=== PATIENT | male | born 1950 | race Caucasian/White ===

== ENCOUNTER 2017-09-15 06:12 | Inpatient (IN) | payer OTHER, MEDICARE ==
[2017-09-14 08:56] LABS: PT 18.6 SEC (9.4-12.5)
[~2017-09-15] VITALS: Ht 177.8 cm; Wt 81.9 kg
--- NOTE | 2017-09-15 06:31 | CT SCAN REPORT ---
EXAMINATION: CT HEAD WITHOUT CONTRAST CLINICAL INFORMATION: Arm drift. Concern for infarction. COMPARISON: None. TECHNIQUE: Contiguous axial images of the brain were obtained without IV contrast. DLP: 625 mGy-cm. FINDINGS: There are no pathologic extra-axial fluid collections. The lateral, third, fourth ventricles are nondilated and concordant with the appearance of the sulci. There is no evidence for acute intraparenchymal hemorrhage or infarct. There is neither mass nor mass effect. There is no shift of midline structures. The paranasal sinuses and mastoid air cells are clear. There are no osseous lesions. IMPRESSION: No evidence for acute intracranial injury.
[2017-09-15 06:41] LABS: ABSOLUTE BASOPHIL COUNT 0.1 /CUMM (0.0-0.2); ABSOLUTE EOSINOPHIL COUNT 0 /CUMM (0.0-0.7); ABSOLUTE GRANULOCYTE CT 17.9 /CUMM (1.4-6.5); ABSOLUTE LYMPH COUNT 2.2 /CUMM (1.2-3.4); ABSOLUTE MONOCYTE COUNT 0.9 /CUMM (0.10-0.60); BASOPHIL % 0.4 % (0.0-2.0); EOSINOPHIL % 0.2 % (0-5); GRANULOCYTE % 84.8 % (42.2-75.2); HEMATOCRIT 43.6 % (42-52); MEAN CORPUSCULAR HGB 25.1 PG (27.0-31.0); MEAN CORPUSCULAR HGB CONC 31.8 G/DL (33.0-37.0); MEAN CORPUSCULAR VOLUME 79.2 FL (80.0-94.0); MEAN PLATELET VOLUME 7.8 FL (7.4-10.4); PLATELET COUNT 177 /CUMM (130-400); RBC DISTRIBUTION WIDTH 16.5 % (11.5-14.5); WHITE BLOOD CELL COUNT 21.1 /CUMM (4.8-10.8)
--- NOTE | 2017-09-15 06:43 | ED NEURO DEFICIT/STROKE ---
History of Present Illness General Chief Complaint: Neuro Symptoms/ Deficit Stated Complaint: "BIBA PER EMS STROKE" Source: patient, family, old records, EMS Exam Limitations: no limitations Vital Signs & Intake/Output Vital Signs & Intake/Output Vital Signs Date Time Temp Pulse Resp B/P B/P Pulse O2 O2 Flow FiO2 Mean Ox Delivery Rate 09/15 900 97.2 63 18 153/90 96 Room Air 09/15 0829 89 18 137/71 98 Room Air Room Air 09/15 0712 92 18 142/81 98 Room Air Room Air 09/15 0627 98 Room Air 09/15 0621 97.0 104 18 142/93 98 Room Air Allergies Coded Allergies: No Known Allergies (09/15/17) Triage Note: PT BIBA FROM HOME C/O STROKE ALERT. PT ARRIVED AND WENT STRAIGHT TO CT SCAN. PT ARRIVED WITH [facility] BY MEDIC. PER MEDIC PT AWOKE THIS MORNING, BEGAN TO DRINK COFFEE AND PT NOTICED HE WAS SPILLING HIS COFFEE ON HIM. PT THEM LOST FINE MOTOR MOVEMENT IN LEFT HAND. PT HAD LEFT SIDED LEG DRIFT. UNABLE TO TELL SLURRED SPEECH DUE TO PTS DENTURES ARE AT HOME. CINNIANTI SCALE + PER MEDIC. PT IS SINUS ON MONITOR, LAST SEEN NORMAL AROUND [id number]. [facility]. PT TO RM 6, PLACED ON MONITOR, CHANGED INTO GOWN. DR BAI AT BEDSIDE FOR EVAL. Triage Nurses Notes Reviewed? yes Onset: Just prior to arrival Duration: minute(s):, better, constant, continues in ED Timing: recent history Severity: moderate New Weakness: LUE, LLE Altered Sensations: LUE, LLE Vision Problem? No Glaucoma? No Impaired Ability: difficult to swallow, difficult to walk Baseline: alert, oriented x 3 Associated Symptoms: confusion, numbness in legs/feet, trouble walking HPI: The patient was last seen normal at midnight. The patient awoke 1 hour prior to admission. 30 minutes prior to admission he called out to his that he couldn't drink his coffee it was spilling out of his mouth. He also complained that he could not move his left arm and leg normally with numbness and incoordination. Symptoms are now better. He denies fever chills nausea vomiting diarrhea abdominal pain chest pain shortness of breath headache dysuria rash bleeding. He has been undergoing workup for multiple complaints with a recent CT scan of his abdomen and pelvis demonstrating pulmonary nodules possible metastatic lesions to his liver and pancreas and spine. The scan also demonstrated infrarenal aortic aneurysm and aneurysmal dilatation of the thoracic aneurysm. (Zev Bai MD) Past History Travel History Traveled to [place] past 21 day No Medical History Any Pertinent Medical History? 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 No (Zev Bai MD) Review of Systems Review of Systems Constitutional: Reports: no symptoms. EENTM: Reports: no symptoms. Respiratory: Reports: no symptoms. Cardiovascular: Reports: no symptoms. GI: Reports: no symptoms. Genitourinary: Reports: no symptoms. Musculoskeletal: Reports: no symptoms. Skin: Reports: no symptoms. Neurological/Psychological: Reports: see HPI, numbness, weakness. Hematologic/Endocrine: Reports: no symptoms. Immunologic/Allergic: Reports: no symptoms. All Other Systems: Reviewed and Negative (Zev Bai MD) Physical Exam Physical Exam General Appearance: well developed/nourished, alert, awake, anxious, mild distress Head: atraumatic, normal appearance Eyes: Bilateral: normal appearance, PERRL, EOMI. Ears, Nose, Throat: normal ENT inspection, moist mucous membrane Neck: normal inspection, supple, full range of motion, trachea midline Respiratory: normal breath sounds, chest non-tender, no respiratory distress, quiet respiration, lungs clear Cardiovascular: regular rate/rhythm, normal peripheral pulses, norml femoral pulses equa Peripheral Pulses: 4+ carotid (R), 4+ carotid (L) Gastrointestinal: normal bowel sounds, soft, non-tender, no organomegaly Back: normal inspection, normal range of motion Extremities: normal range of motion, no ligament instability Psychiatric: awake, alert, oriented x 3 Cranial Nerves: normal hearing, normal speech, PERRL Coordination/Gait: normal finger to nose Motor/Sensory: no motor/sensory deficits Reflexes: 2+: bicep (R), bicep (L). Skin: intact, normal color, warm/dry Core Measures CVA/TIA Diagnosis: Yes NIH Stroke Scale NIH Stroke Scale Response Value Level of Consciousness alert 0 LOC Questions answers both correctly 0 LOC Commands obeys both correctly 0 Best Gaze normal 0 Visual Hilliard no visual loss 0 Facial Paresis normal 0 Motor Arm - Left no drift 0 Motor Arm - Right no drift 0 Motor Leg - Left no drift 0 Motor Leg - Right no drift 0 Limb Ataxia no ataxia 0 Sensory normal 0 Best Language no aphasia 0 Dysarthria normal articulation 0 Extinction and Inattention no neglect 0 Total 0 Date Last Known Well: 09/15/17 Time Last Known Well: 29 Symptom Start Date: 09/15/17 Symptom Start Time: 544 Reason tPA not ordered Medical Contraindication Swallow Evaluation Pass Swallow eval date 09/15/17 Swallow eval time 06 Sepsis Present: No Sepsis Focused Exam Completed? No (Zaid VIDAL,Zev) Progress Differential Diagnosis: drug intoxication, electrolyte imbalance, hypoglycemia, intracranial Hem., intracranial mass/tumor, stroke Plan of Care: Orders Procedure Date/time Status Nothing by Mouth 09/15 L Complete Nothing by Mouth 09/15 D Active Misc Message 09/15 1120 Active ED Holding Orders 09/15 1120 Active Admit to inpatient 09/15 1120 Active Vital Signs 09/15 1120 Active Code Status 09/15 1120 Active URINALYSIS 09/15 0926 Complete TROPONIN LEVEL 09/15 0629 Complete PROTHROMBIN TIME 09/15 0629 Complete MAGNESIUM 09/15 0629 Complete LDH (LACT ACID DEHYDROGENASE) 09/15 0629 Complete COMPREHENSIVE METABOLIC PANEL 09/15 0629 Complete CBC WITHOUT DIFFERENTIAL 09/15 0629 Complete EKG 09/15 0625 Active Laboratory Tests 09/15/17 0927: Urine Color YEL, Urine Clarity HAZY H, Urine pH 6.5, Ur Specific [place] 1.015, Urine Protein TRACE H, Urine Ketones NEG, Urine Nitrite NEG, Urine Bilirubin NEG@ICTO, Urine Urobilinogen 1.0, Ur Leukocyte Esterase NEG, Ur Microscopic SEDIMENT EXAMINED, Urine RBC RARE, Urine WBC RARE, Ur Epithelial Cells FEW, Urine Bacteria RARE H, Hyaline Casts RARE H, Granular Casts RARE H, Urine Mucus MOD H, Urine Hemoglobin NEG, Urine Glucose NEG 09/15/17 0630: Anion Gap 11, Estimated GFR > 60, BUN/Creatinine Ratio 22.9, Glucose 103 H, Calcium 8.3 L, Magnesium 2.1, Total Bilirubin 1.1, AST 157 H, ALT 75 H, Alkaline Phosphatase 594 H, Lactate Dehydrogenase 1250 H, Troponin I 0.14 *H, Total Protein 6.3, Albumin 2.9 L, Globulin 3.4, Albumin/Globulin Ratio 0.9 L, PT 18.7 H, INR 1.71 H, CBC w Diff MAN DIFF ORDERED, RBC 5.50, MCV 79.2 L, MCH 25.1 L, MCHC 31.8 L, RDW 16.5 H, MPV 7.8, Gran % 84.8 H, Lymphocytes % 10.4 L, Monocytes % 4.2, Eosinophils % 0.2, Basophils % 0.4, Absolute Granulocytes 17.9 H, Segmented Neutrophils 87 H, Band Neutrophils 3, Absolute Lymphocytes 2.2, Lymphocytes 7 L, Monocytes 2, Absolute Monocytes 0.9 H, Absolute Eosinophils 0, Basophils 1, Absolute Basophils 0.1, Platelet Estimate ADEQUATE, Polychromasia 1+, Hypochromic-Microcytic 2+, Poikilocytosis 1+, Anisocytosis 1+, Microcytic Cells 1+, Target Cells FEW, Emanuel Cells FEW Diagnostic Imaging: Viewed by Me: Radiology Read, CT Scan. Discussed w/RAD: Radiology Read, CT Scan. Radiology Impression: no acute abnormality Initial ED EKG: normal p-waves, normal sinus rhythm, IVCD Rhythm Strip: normal sinus rhythm Hand-Off Endorsed To: Jenny VIDAL,Den Pinto Endorsed Time: 704 Pending: labs, other (admission) Comments: Multiple factors of recent CT disqualify TPA use such as metastatic disease, aortic aneurysms. 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 09/15/2017 7:45:56 AM I have reevaluated Law. He states he is doing considerably better. His only complaint at this time is of tingling of the left arm. Outside of that his examination shows no cranial nerve deficits but weakness of the left arm is demonstrated by pronator drift. Left Hand grasp is normal. NIH stroke score of 2. Patient was last seen normal at midnight when he went to bed. Upon awakening at about 5:30 this morning he states he went to prepare coffee. While he was trying to drink his coffee he noticed difficulty swallowing. Prior to that he cannot confirm other symptoms have not looked in the mirror or spoken to that point. His was still asleep at the time. She awoke when he called her because of the difficulty swallowing. Neurology paged. Patient denies having chest pain or shortness of breath out of the ordinary (he smokes cigarettes and states he does get winded easily generally speaking). Etiology of the patient's increased troponin level is unclear at this point. EKG showed no acute ischemic changes or injury. 09/15/2017 8:08:27 AM patient's case discussed with Dr. Fry who feels the patient is not a TPA candidate at this time given his low NIH stroke score, improving symptoms and history of metastatic cancer and aneurysms. He has recommended a CTA for possible endovascular intervention. 09/15/2017 8:17:46 AM patient's case discussed with Dr. Cristofer Cha who feels that the troponin should be trended along with serial EKGs. He surmises the patient will need an echocardiogram during his hospitalization. However given the lack of chest pain and shortness of breath or diagnostic EKG changes, no acute intervention necessary at this time relative to the increased troponin. 09/15/2017 10:30:11 AM I have spoken with the [facility] radiology physician assistance line regarding a report on the CTA. This is pending. 09/15/2017 10:56:45 AM Per radiologist: PULMONARY EMBOLI, ACUTE INFARCT LEFT PARIETAL, QUESTION RIGHT PARIETAL ? AGE. No apparent thrombus. 09/15/2017 11:04:58 AM I have discussed this patient's case with Dr. ELLIS, including the patient's verbal CTA head and neck report and the elevated troponin alONG with my discussions with the consultants. I have kept the patient nothing by mouth given the history of dysphagia. I've also been told that he did not take his typical daily aspirin dose today because he has a liver biopsy pending. I have held on administering aspirin given this consideration. (Jenny VIDAL,Den Pinto) Departure Departure Disposition: STILL A PATIENT Condition: Stable Clinical Impression Primary Impression: TIA (transient ischemic attack) Referrals: Raymond Richardson MD (PCP/Family) Departure Forms: Customer Survey General Discharge Information (Zev Bai MD) Admission Note Spoke With: Emmie Ellis MD Documentation of Exam: Documentation of any treatments & extenuating circumstances including Concerns Regarding Discharge (functional status, medication knowledge or non-compliance, living conditions, etc.) that warrant an admission rather than observation: Patient has a confirmed acute stroke in the left parietal region. I feel he requires hospitalization for neurology consultation, follow-up MRI scan and optimization of medical management to prevent future strokes. In addition patient should also have potential reversible causes of stroke investigated included carotid artery disease and cardioembolic phenomenon. In addition patient should have PT OT evaluation given his left upper extremity weakness and history of dysphagia. This patient has a very complicated past medical history including metastatic cancer and tobacco smoking. I feel he will require a multiple day hospitalization. Patient might also require short-term rehabilitation. (Jenny VIDAL,Den Pinto) Critical Care Note Critical Care Note Critical Care Time: 30-74 min (40) (Zaid VIDAL,Zev)
[2017-09-15 06:46] LABS: PT 18.7 SEC (9.4-12.5)
--- NOTE | 2017-09-15 07:17 | RADIOLOGY REPORT ---
EXAMINATION: XR PORTABLE CHEST CLINICAL INFORMATION: Left-sided weakness. COMPARISON: CT thorax dated 09/06/2017. TECHNIQUE: Portable frontal view of the chest was obtained. FINDINGS: The heart, great vessels, pulmonary vasculature mediastinum are normal. There is stable mild scar/atelectasis at the lateral left base. No infiltrate, effusion or pneumothorax is seen. There is no acute osseous abnormality. IMPRESSION: There is stable mild lateral left base scar/subsegmental atelectasis. No new focal infiltrate, effusion or pneumothorax is seen.
--- NOTE | 2017-09-15 11:05 | CT SCAN REPORT ---
EXAMINATION: CT ANGIOGRAM NECK WITH CONTRAST CT ANGIOGRAM BRAIN WITH CONTRAST CLINICAL INFORMATION: Left upper extremity weakness and dysphasia. COMPARISON: Head CT performed earlier the same day. TECHNIQUE: Test bolus sequences followed by intravenous administration 95 mL of Optiray 320. Helical imaging was performed in the axial plane from the thoracic inlet to the skull vertex. Delayed postcontrast imaging of the head was also performed. The data was processed at the tomography technologist workstation for generation of MIP sequences. Angled MIPs and volume rendered reformatted images were also generated at an offline 3D workstation. Stenoses are assessed in accordance with NASCET criteria unless otherwise indicated. FINDINGS: BRAIN: There is a possible small acute to subacute infarct involving the left parietal lobe on image 42 of series 4 and a smaller infarct of indeterminate age within the right parietal lobe. No definite additional acute or subacute infarcts are identified. There is no intracranial hemorrhage, hydrocephalus, extra-axial surface collection, midline shift, or other herniation pattern. The basilar cisterns are preserved. No significant soft tissue abnormality. No acute osseous abnormality. The paranasal sinuses and the mastoid air cells are well-aerated. CERVICAL SOFT TISSUES AND LUNG APICES: There is a partially imaged pulmonary embolus within an anterior segmental pulmonary arterial branch of the right upper lobe on image 39 of series 2. Smaller pulmonary embolus within a right apical segmental pulmonary arterial branch. No significant soft tissue findings within the neck. Imaged upper lungs are clear. Cervical spondylosis. At T4 there is a probable vertebral body hemangioma with mild superior endplate height loss that is unchanged. NECK CTA: There is a classic 3 vessel configuration of the aortic arch. Proximal arch vessels are non-stenotic. The vertebral arteries are codominant. No significant ostial stenosis is visualized on either side. Both vertebral arteries are widely patent throughout their extracranial cervical course. Atherosclerotic disease of the carotid bifurcations bilaterally resulting in less than 50% stenoses by NASCET criteria. BRAIN CTA: Atherosclerotic disease throughout the carotid siphons bilaterally with a moderate stenosis of the ascending left cavernous ICA segment and no additional intracranial internal carotid artery stenoses. No focal flow-limiting stenosis, discrete proximal large artery occlusion, or saccular intradural aneurysm is identified. Timing of the contrast bolus allows assessment of the major dural venous sinuses, which all opacify normally. IMPRESSION: - There is a possible small acute to subacute infarct involving the left parietal lobe on image 42 of series 4 and a smaller infarct of indeterminate age within the right parietal lobe. No definite additional acute or subacute infarcts are identified. No significant mass effect and no evidence of hemorrhagic transformation. - There is a partially imaged pulmonary embolus within an anterior segmental pulmonary arterial branch of the right upper lobe on image 39 of series 2. Smaller pulmonary embolus within a right apical segmental pulmonary arterial branch. A CTA of the chest would be helpful in assessing for the true degree of pulmonary embolus burden. - Atherosclerotic disease throughout the carotid siphons bilaterally with a moderate stenosis of the ascending left cavernous ICA segment. No acute arterial occlusions within the head or neck. No significant arterial stenoses within the neck. Findings and recommendations were discussed with Dr. Alvarado at 10:56 AM and 09/15/2017.
[2017-09-15] MEDS ORDERED: ULTRAM50 M1 PO (11:53)
[2017-09-15] MEDS ORDERED: VITAMIN D250000 UNIT PO (11:54)
--- NOTE | 2017-09-15 12:50 | Cons- Neurology ---
General Information and HPI Consulting Request Date of Consult: 09/15/17 Requested By: Dr. Alvardao Reason for Consult: Left side weakness, stroke alert Source of Information: patient, family, old records Exam Limitations: no limitations History of Present Illness: 67-year-old man first noted difficulty this morning after being up and about when drinking coffee which dribbled left side of his mouth. There was left lower facial weakness noted by his and some slurring of speech first noted when he conversed with her, weakness and paresthesias in the arm as well. NIH score was low, actual time of onset not known, possibly during the night, therefore TPA was withheld. CT discloses stroke but CTA revealed no large artery occlusions. The patient is improving, at this time he reports only paresthesias in the left arm. Allergies/Medications Allergies: Coded Allergies: No Known Allergies (09/15/17) Home Med List: Ergocalciferol (Vitamin D2) (Vitamin D2) 50,000 UNIT CAPSULE 1 CAP PO QTUES SUPPLEMENT (Reported) Tramadol HCl (Ultram) 50 MG TABLET 1 TAB PO TIDPRN PAIN (Reported) Review of Systems Review of Systems: ROS: A complete medical systems review was obtained. No pertinent complaints were found. 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 Ambulation: independent IADLs Independent: finances. Exam & Diagnostic Data Vital Signs and I&O Vital Signs Date Time Temp Pulse Resp B/P B/P Pulse O2 O2 Flow FiO2 Mean Ox Delivery Rate 09/15 1133 88 18 139/88 97 Room Air Room Air 09/15 0901 97.2 63 18 153/90 96 Room Air 09/15 0829 89 18 137/71 98 Room Air Room Air 09/15 0712 92 18 142/81 98 Room Air Room Air 09/15 0627 98 Room Air 09/15 0621 97.0 104 18 142/93 98 Room Air Intake & Output 09/15 1600 09/15 0800 09/15 0000 Intake Total Output Total Balance Patient 184 lb Weight Weight Reported by Patient Measurement Method Physical Exam: On exam the patient appeared generally well and in no distress. No carotid bruits and no cardiac murmur. No peripheral edema Mental status: Alert, attentive, fully oriented, no language errors, recall and general fund of knowledge seem intact Funduscopic unremarkable Visual szymanski full , Eye movements full without nystagmus, pupils midsize equal round and reactive to light. Facial movement normal bilaterally Facial sensation normal bilaterally Hearing intact bilaterally Uvula elevates midline Tongue protrusion is midline Shoulder shrug symmetric Motor power and tone normal in all 4 extremities Sensation intact to primary modes Tendon reflexes normal and symmetric without pathologic signs Coordination no ataxia Gait [testing deferred] Last 48 Hours of Lab Results: Laboratory Tests 09/15 09/15 0927 0630 Chemistry Sodium (137 - 145 mmol/L) 127 L Potassium (3.5 - 5.1 mmol/L) 4.5 Chloride (98 - 107 mmol/L) 90 L Carbon Dioxide (22 - 30 mmol/L) 26 Anion Gap (5 - 16) 11 BUN (9 - 20 mg/dL) 16 Creatinine (0.7 - 1.2 mg/dL) 0.7 Estimated GFR (>60 ml/min) > 60 BUN/Creatinine Ratio (7 - 25 %) 22.9 Glucose (65 - 99 mg/dL) 103 H Calcium (8.4 - 10.2 mg/dL) 8.3 L Magnesium (1.6 - 2.3 mg/dL) 2.1 Total Bilirubin (0.2 - 1.3 mg/dL) 1.1 AST (17 - 59 U/L) 157 H ALT (21 - 72 U/L) 75 H Alkaline Phosphatase (< 127 U/L) 594 H Lactate Dehydrogenase (313 - 618 U/L) 1250 H Troponin I (<0.11 ng/ml) 0.14 *H Total Protein (6.3 - 8.2 g/dL) 6.3 Albumin (3.5 - 5.0 g/dL) 2.9 L Globulin (1.9 - 4.2 gm/dL) 3.4 Albumin/Globulin Ratio (1.1 - 2.2 %) 0.9 L Coagulation PT (9.4 - 12.5 SEC) 18.7 H INR (0.90 - 1.17) 1.71 H Hematology CBC w Diff MAN DIFF ORDERED WBC (4.8 - 10.8 /CUMM) 21.1 H RBC (4.70 - 6.10 /CUMM) 5.50 Hgb (14.0 - 18.0 G/DL) 13.8 L Hct (42 - 52 %) 43.6 MCV (80.0 - 94.0 FL) 79.2 L MCH (27.0 - 31.0 PG) 25.1 L MCHC (33.0 - 37.0 G/DL) 31.8 L RDW (11.5 - 14.5 %) 16.5 H Plt Count (130 - 400 /CUMM) 177 MPV (7.4 - 10.4 FL) 7.8 Gran % (42.2 - 75.2 %) 84.8 H Lymphocytes % (20.5 - 51.1 %) 10.4 L Monocytes % (1.7 - 9.3 %) 4.2 Eosinophils % (0 - 5 %) 0.2 Basophils % (0.0 - 2.0 %) 0.4 Absolute Granulocytes (1.4 - 6.5 /CUMM) 17.9 H Segmented Neutrophils (42.2 - 75.2 %) 87 H Band Neutrophils (0.0 - 5.0 %) 3 Absolute Lymphocytes (1.2 - 3.4 /CUMM) 2.2 Lymphocytes (20.5 - 51.1 %) 7 L Monocytes (1.7 - 9.3 %) 2 Absolute Monocytes (0.10 - 0.60 /CUMM) 0.9 H Absolute Eosinophils (0.0 - 0.7 /CUMM) 0 Basophils (0.0 - 2.0 %) 1 Absolute Basophils (0.0 - 0.2 /CUMM) 0.1 Platelet Estimate (ADEQUATE) ADEQUATE Polychromasia 1+ Hypochromic-Microcytic 2+ Poikilocytosis 1+ Anisocytosis 1+ Microcytic Cells 1+ Target Cells FEW [place] Cells FEW Urines Urine Color (YEL,AMB,STR) YEL Urine Clarity (CLEAR) HAZY H Urine pH (5.0 - 8.0) 6.5 Ur Specific [place] (1.001 - 1.035) 1.015 Urine Protein (NEG,<30 MG/DL) TRACE H Urine Ketones (NEG) NEG Urine Nitrite (NEG) NEG Urine Bilirubin (NEG) NEG@ICTO Urine Urobilinogen (0.1 - 1.0 EU/dl) 1.0 Ur Leukocyte Esterase (NEG) NEG Ur Microscopic SEDIMENT EXAMINED Urine RBC (0 - 5 /HPF) RARE Urine WBC (0 - 2 /HPF) RARE Ur Epithelial Cells (NONE,FEW) FEW Urine Bacteria (NEG/NONE) RARE H Hyaline Casts (0/LPF) RARE H Granular Casts (NONE /LPF) RARE H Urine Mucus (FEW,NONE) MOD H Urine Hemoglobin (NEG) NEG Urine Glucose (N MG/DL) NEG Imaging/Other Studies: CT head without contrast: There are no pathologic extra-axial fluid collections. The lateral, third, fourth ventricles are nondilated and concordant with the appearance of the sulci. There is no evidence for acute intraparenchymal hemorrhage or infarct. There is neither mass nor mass effect. There is no shift of midline structures. The paranasal sinuses and mastoid air cells are clear. There are no osseous lesions. IMPRESSION: No evidence for acute intracranial injury. CTA head and neck: CERVICAL SOFT TISSUES AND LUNG APICES: There is a partially imaged pulmonary embolus within an anterior segmental pulmonary arterial branch of the right upper lobe on image 39 of series 2. Smaller pulmonary embolus within a right apical segmental pulmonary arterial branch. No significant soft tissue findings within the neck. Imaged upper lungs are clear. Cervical spondylosis. At T4 there is a probable vertebral body hemangioma with mild superior endplate height loss that is unchanged. NECK CTA: There is a classic 3 vessel configuration of the aortic arch. Proximal arch vessels are non-stenotic. The vertebral arteries are codominant. No significant ostial stenosis is visualized on either side. Both vertebral arteries are widely patent throughout their extracranial cervical course. Atherosclerotic disease of the carotid bifurcations bilaterally resulting in less than 50% stenoses by NASCET criteria. BRAIN CTA: Atherosclerotic disease throughout the carotid siphons bilaterally with a moderate stenosis of the ascending left cavernous ICA segment and no additional intracranial internal carotid artery stenoses. No focal flow-limiting stenosis, discrete proximal large artery occlusion, or saccular intradural aneurysm is identified. Timing of the contrast bolus allows assessment of the major dural venous sinuses, which all opacify normally. IMPRESSION: - There is a possible small acute to subacute infarct involving the left parietal lobe on image 42 of series 4 and a smaller infarct of indeterminate age within the right parietal lobe. No definite additional acute or subacute infarcts are identified. No significant mass effect and no evidence of hemorrhagic transformation. - There is a partially imaged pulmonary embolus within an anterior segmental pulmonary arterial branch of the right upper lobe on image 39 of series 2. Smaller pulmonary embolus within a right apical segmental pulmonary arterial branch. A CTA of the chest would be helpful in assessing for the true degree of pulmonary embolus burden. - Atherosclerotic disease throughout the carotid siphons bilaterally with a moderate stenosis of the ascending left cavernous ICA segment. No acute arterial occlusions within the head or neck. No significant arterial stenoses within the neck. 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 The scan also demonstrated infrarenal aortic aneurysm and aneurysmal dilatation of the thoracic aneurysm. Recommendations: At this point in time the greatest risk to the patient is a recurrent stroke, first week the period of highest risk. Would recommend postponing the biopsy unless this can be done on antiplatelet treatment. Aspirin 81 MG EC daily. Atorvastatin 40 MG daily as well Telemetry Echocardiogram For allowing me to participate in this patient's care Consult Acknowledgment - Thank you for your consult request.
--- NOTE | 2017-09-15 13:12 | History & Physical ---
Javier Shah MD 09/15/17 1312: General Information and HPI Source of Information: patient, family, old records Exam Limitations: no limitations History of Present Illness: 67-year-old man with past medical history of pulmonary/hepatic/pancreatic lesions of unknown etiology, AAA, and GERD brought in by ambulance for slurred speeach and facial droop. Patient reportedly went to bed around midnight last night in his normal state of health. He awoke around 5:30 and went downstairs to make coffee. When drinking the coffee shortly after he notices that it kept "dribbling" out of his mouth. He then saw him and noticed that his speech was slurred and he has a facial droop. Patient reports left hand weakness / clumsyness during this time and states that he couldnt grab the television report. He left leg also felt weak. For evaluation of these symptoms EMS was contaced and patient was brought to the [place] ED. Presently patient states that his symptoms have almost entirely resolved. He admits his left hand is still somewhat clumsy. He otherwise feels well and has no complaints. He reports that tomorrow he was going to see a vascular surgeon for his "blue" right 5th toe. He also stopped taking aspiring as of this morning in anticipation of a liver biopsy on Saturday to determine the source of these lesions. Social History He smokes 2-3 ppd since age 22. He denies use or alcohol or recreational drugs. 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 He is indenpendent in all ADLs/IADLs. Review of Systems Otherwise he denies any headache, fever, chills, blurred/double vision, lightheadednes, dizziness, chest pain, palpitations, heartburn, shortness of breath, cough, nausea, vomiting, diarrhea, constipation, or urinary complaints. Allergies/Medications Allergies: Coded Allergies: No Known Allergies (09/15/17) Home Med list Aspirin (Ecotrin*) 81 MG TABLET.DR 1 TAB PO DAILY HEART (Reported) Ergocalciferol (Vitamin D2) (Vitamin D2) 50,000 UNIT CAPSULE 1 CAP PO QTUES SUPPLEMENT (Reported) Omeprazole 20 MG CAPSULE.DR 1 CAP PO DAILY GERD (Reported) Tramadol HCl (Ultram) 50 MG TABLET 1 TAB PO TIDPRN PAIN (Reported) Past History Travel History Traveled to [place] past 21 day No Medical History Neurological: NONE EENT: NONE Cardiovascular: AORTIC ANEURYSM Respiratory: NONE Gastrointestinal: GERD Hepatic: NONE Renal: NONE Musculoskeletal: NONE Psychiatric: NONE Endocrine: NONE Cancer(s): 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 Home Who Do You Live With? spouse Services at Home: None Primary Language: [place] Smoking Status: Current Everyday Smoker ETOH Use: denies use Functional Ability ADLs Independent: dressing, eating, toileting, bathing. Ambulation: independent IADLs Independent: finances. Review of Systems Review of Systems Constitutional: Reports: see HPI. Exam & Diagnostic Data Last 24 Hrs of Vital Signs/I&O Vital Signs Date Time Temp Pulse Resp B/P B/P Pulse O2 O2 Flow FiO2 Mean Ox Delivery Rate 09/15 1331 98 22 165/95 99 Room Air 09/15 1133 88 18 139/88 97 Room Air Room Air 09/15 0901 97.2 63 18 153/90 96 Room Air 09/15 0829 89 18 137/71 98 Room Air Room Air 09/15 0712 92 18 142/81 98 Room Air Room Air 09/15 0627 98 Room Air 09/15 0621 97.0 104 18 142/93 98 Room Air Intake & Output 09/15 1600 09/15 0800 09/15 0000 Intake Total Output Total Balance Patient 83.461 kg Weight Weight Reported by Patient Measurement Method Physical Exam General Appearance Alert, Oriented X3, Cooperative, No Acute Distress Skin No Rashes, No Breakdown, No Significant Lesion Skin Temp/Moisture Exam: Warm/Dry Sepsis Skin Exam (color): Normal for Ethnicity HEENT Atraumatic, PERRLA, EOMI, Mucous Membr. moist/pink Neck Supple, No JVD, +2 Carotid Pulse wo Bruit Cardiovascular Regular Rate, Normal S1, Normal S2, No Murmurs, Gallops, Rubs Lungs Clear to Auscultation, Normal Air Movement Abdomen Normal Bowel Sounds, Soft, No Tenderness, No Hepatospenomegaly, No Masses Neurological Normal Gait, Normal Speech, Strength at 5/5 X4 Ext, Normal Tone, Sensation Intact, Cranial Nerves 3-12 NL, Reflexes 2+ Extremities No Clubbing, No Edema, Normal Pulses, No Tenderness/Swelling, Cyanotic right 5th toe Vascular Normal Pulses, Pulses Symmetrical Last 24 Hrs of Labs/Cy: Laboratory Tests 09/15/17 1315: Troponin I Pending 09/15/17926: Urine Osmolality Pending 09/15/17926: Urine Color YEL, Urine Clarity HAZY H, Urine pH 6.5, Ur Specific [place] 1.015, Urine Protein TRACE H, Urine Ketones NEG, Urine Nitrite NEG, Urine Bilirubin NEG@ICTO, Urine Urobilinogen 1.0, Ur Leukocyte Esterase NEG, Ur Microscopic SEDIMENT EXAMINED, Urine RBC RARE, Urine WBC RARE, Ur Epithelial Cells FEW, Urine Bacteria RARE H, Hyaline Casts RARE H, Granular Casts RARE H, Urine Mucus MOD H, Urine Hemoglobin NEG, Urine Glucose NEG 09/15/17 0630: Anion Gap 11, Estimated GFR > 60, BUN/Creatinine Ratio 22.9, Glucose 103 H, Hemoglobin A1c Pending, Serum Osmolality Pending, Calcium 8.3 L, Magnesium 2.1, Total Bilirubin 1.1, AST 157 H, ALT 75 H, Alkaline Phosphatase 594 H, Lactate Dehydrogenase 1250 H, Troponin I 0.14 *H, Total Protein 6.3, Albumin 2.9 L, Globulin 3.4, Albumin/Globulin Ratio 0.9 L, Triglycerides Pending, Cholesterol Pending, LDL Cholesterol, Calc Pending, HDL Cholesterol Pending, Cholesterol/HDL Ratio Pending, PT 18.7 H, INR 1.71 H, CBC w Diff MAN DIFF ORDERED, RBC 5.50, MCV 79.2 L, MCH 25.1 L, MCHC 31.8 L, RDW 16.5 H, MPV 7.8, Gran % 84.8 H, Lymphocytes % 10.4 L, Monocytes % 4.2, Eosinophils % 0.2, Basophils % 0.4, Absolute Granulocytes 17.9 H, Segmented Neutrophils 87 H, Band Neutrophils 3, Absolute Lymphocytes 2.2, Lymphocytes 7 L, Monocytes 2, Absolute Monocytes 0.9 H, Absolute Eosinophils 0, Basophils 1, Absolute Basophils 0.1, Platelet Estimate ADEQUATE, Polychromasia 1+, Hypochromic-Microcytic 2+, Poikilocytosis 1 +, Anisocytosis 1+, Microcytic Cells 1+, Target Cells FEW, [place] Cells FEW Assessment/Plan Assessment: 67 year old man with probable metastatic disease seen for evaluation of slurred speech and facial droop found to have an acute left parietal CVA. CT head without IV contrast was negative for any acute intracranial pathology. CTA head/neck demonstrated an acute/subacute left parietal infarct and an age- indeterminate right parietal infarct. The scan also demonstrated what appears to be an acute pulmonary embolism however clinically other than an elevated well score for probable underlying cancer he does not appear to be in any respiratory distress, is saturating well on room air, and is not tachycardic. Patient may require a CTA of the chest with PE protocol for further evaluation of this finding. Patient may require a contrast enhanced MRI of the brain to assess for focality of his CVA and for probable metastatic disease. Patient is to be seen by vascular surgery as an inpatient for evaluation of his cyanotic right fifth toe; he was previously scheduled to follow-up with vascular as an outpatient for this tomorrow. Patient held his aspirin this morning in anticipation for a liver biopsy on Saturday by interventional radiology which may have to be deferred. Problem List -Acute-Subsacute left parietal CVA -Age indeterminant right parietal CVA -Questionable pulmonary embolus -Moderate stenosis of ascending left cavernous ICA -Diffuse solid organ lesions, probable metastatic disease -Leukocytosis -Hyponatremia -Transaminitis -Elevated troponin -Elevated INR -Elevated LDH -History of AAA -GERD Plan -Admit to telemetry floor -Telemetry monitoring -Neurochecks -Restart Aspirin 81 mg PO daily -Start Atorvastatin 40 mg PO Daily -Start metoprolol tartrate 12.5 mg p.o. twice daily -Continue home meds: Vitamin D, Omeprazole, Tramadol -Neurology consult for CVA -Cardiology consult for elevated troponins -Vascuar surgery consult for cyanotic toe -PT/OT evaluation -Contact IR regarding liver biopsy schedule for Saturday -Follow daily hepatic function, INR, BMP -Trend troponin / EKG until peak or three negative sets -Check Serum / Urine Osmolality -Checks HbA1c and lipid panel -Echocardiogram -Bilateral lower extremity venous Doppler -X-ray right foot -Consider MRI with brodie to assess for extent of stroke / possible metastatic disease -Consider CTA to evaluate for pulmonary embolism if symptomatic -Pain control with acetaminophen / tramadol -Heart healthy diet with 1200cc fluid restriction -DVT PPx with SC heparin / ALPS -DNR, intubation okay As Ranked By This Provider Problem List: 1. Acute CVA (cerebrovascular accident) 2. Elevated troponin 3. Metastatic disease 4. Hyponatremia Core Measures/Misc (9/17) Acute Coronary Syndrome ACS Diagnosis: No Congestive Heart Failure Congestive Heart Failure Diagnosis No Cerebrovascular Accident CVA/TIA Diagnosis: Yes NIH Stroke Scale: Total 0 Date Last Known Well: 09/15/17 Time Last Known Well: 0030 Symptom Start Date: 09/15/17 Symptom Start Time: 05 Reason tPA not ordered Medical Contraindication Swallow Evaluation Pass Current/Past Hx AFib/AFlutter No No Antithrombotic d/t Medical Contraindication No Anticoagulant d/t Medical Contraindication VTE (View Protocol) VTE Risk Factors Age>40 No Mechanical VTE Prophylaxis d/t N/A MechProphylax Ordered No VTE Pharm Prophylaxis d/t NA PharmProphylax ordered Comment: Possible VTE? Sepsis (View protocol) Sepsis Present: No Emmie Ellis MD 09/15/17 1437: Attending MD Review Statement Attending Statement Attending MD Statement: examined this patient, discuss w/resident/PA/RN RADIATION, agreed w/resident/PA/RN RADIATION, discussed with family, reviewed EMR data (avail), discussed with nursing, amended to note Attending Assessment/Plan: Patient seen and examined. Lying comfortably in bed not in acute distress. present at the bedside. History and physical is as documented by the medical supply technician above. Currently denies any pain. Denies any nausea vomiting. Denies any chest pain or palpitations. Denies any cough swelling or pain. Denies any pain in the right foot. Discussed the bedside swallow evaluation and is eating lunch with no issues. General appearance: Well-developed and not in any acute distress. HEENT: Anicteric, no pallor, pupils equal and reactive. Neck: Supple with no jugular venous distention. Heart: S1-S2 regular with no audible murmur. Lungs: Adequate and symmetric air entry bilaterally with no added sounds. Abdomen: Distended, firm, nontender. Normal bowel sounds. Extremities: Cyanotic toes right foot more pronounced not cool to touch. Distal pulses Problems: 1. Bilateral parietal stroke. Left-sided stroke is acute to subacute, right is indeterminate. 2. Moderate stenosis of the ascending left cavernous internal carotid artery segment. 3. Concern for multiple pulmonary embolism noted on CT of the head and neck. 4. Elevated troponin; likely secondary to above. Rule out coronary artery disease. 5. Liver lesions concerning for metastatic disease. 6. Mass versus pseudo-lesion in the tail of the pancreas. 7. Cyanotic right foot. 8. Leukocytosis 9. Hyponatremia Plan: -Admit to inpatient medical service. -Telemetry monitoring. Serial troponins until levels are trending down, transthoracic echocardiogram to evaluate for possible PFO/ASD stroke. cardiology consultation appreciated. Begin low-dose beta-angie therapy with metoprolol 12.5 mg orally twice daily. -Neuro watch every 4 hours 24 hours. -Antiplatelet therapy with aspirin. Lipid-lowering therapy with statin. -Patient was scheduled for liver biopsy later on this week. This will have to be deferred as patient will need to be maintained on antiplatelet therapy with aspirin for now. -Patient will require a dedicated CT angiogram of the chest to confirm diagnosis of pulmonary embolism. Given his dilute today this procedure can be delayed on the 24 hours. Fortunately at present he is asymptomatic from a respiratory standpoint. He is not requiring oxygen supplementation. He is not tachycardic. -Obtain venous Dopplers of lower extremities to rule out DVT. -Obtain arterial Dopplers to evaluate for peripheral arterial disease given his cyanotic right foot. Vascular surgery consultation. -In order to avoid hemorrhagic conversion of his acutely diagnosed stroke, hold off full dose anticoagulation until cleared by the neurology service. -Patient's diagnosis as well as plan of care were discussed in detail with him and his at the bedside.
[2017-09-15] MEDS ORDERED: ASPIRIN EC81 M1 PO (13:13)
[2017-09-15] MEDS ORDERED: OMEPRAZOLE20 M2 PO (13:14)
[2017-09-15 14:00] VITALS: BP 150/90
[2017-09-15 14:13] VITALS: BP 150/90
--- NOTE | 2017-09-15 14:17 | RADIOLOGY REPORT ---
EXAMINATION: XR FOOT, RIGHT CLINICAL INFORMATION: Cyanotic right fifth toe; question fracture. COMPARISON: None TECHNIQUE: AP and lateral views of the right foot. FINDINGS: Bony alignment and mineralization are normal. No fracture or dislocation is seen. There is no right ankle joint effusion. Boehler's angle is normal. There is no calcaneal spur. No soft tissue gas or foreign body is seen. IMPRESSION: Normal right foot.
--- NOTE | 2017-09-15 14:37 | Admission Certification ---
Admission Certification Certification Statement - As attending physician, I certify that at the time of - admission, based on clinical presentation, severity of - symptoms, need for further diagnostic testing and - therapeutic interventions, and risk of adverse outcomes - without in-hospital treatment, in my clinical assessment, - this patient requires an acute hospital stay for a minimum - of two nights or longer. I have also considered psychsocial - factors such as support system, advanced age, financial - issues, cognitive issues, and failed out-patient treatments, - past re-admission history, safety of patient, and lack of - compliance as applicable. Specific rationale supporting this admission is: Patient requires hospitalization for management of his acute stroke and elevated troponins.
--- NOTE | 2017-09-15 14:42 | Cons- Cardiology ---
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 He presents to our hospital with acute left facial weakness as well as arm paresthesias and speech slurring. The patient noted facial weakness with drooling from the left after awakening this a.m. and drinking coffee. There was concurrent noted left arm paresthesias and speech slurring. He was brought to the emergency room, wherein a CT demonstrated a small left parietal lobe acute/subacute infarct. Of note, he was as well noted to have a right upper lobe pulmonary embolism on that scan. The patient was evaluated by neurology and initiated on antiplatelet therapy. From a cardiac standpoint, the patient is otherwise asymptomatic. He denies having symptoms of chest pains, palpitations nor dyspnea. Of note, he does recall being aware of a heart murmur that he was advised of many years ago. He has had no cardiac imaging in the past. An initial EKG demonstrated no acute changes, and the patient was in sinus rhythm. Allergies/Medications Allergies: Coded Allergies: No Known Allergies (09/15/17) Home Med List: Aspirin (Ecotrin*) 81 MG TABLET.DR 1 TAB PO DAILY HEART (Reported) Ergocalciferol (Vitamin D2) (Vitamin D2) 50,000 UNIT CAPSULE 1 CAP PO QTUES SUPPLEMENT (Reported) Omeprazole 20 MG CAPSULE.DR 1 CAP PO DAILY GERD (Reported) Tramadol HCl (Ultram) 50 MG TABLET 1 TAB PO TIDPRN PAIN (Reported) Current Medications: Current Medications Sig/Lola Start time Last Medication Dose Route Stop Time Status Admin Acetaminophen 650 MG Q6P PRN 09/15 1330 AC PO Aspirin Buffered 81 MG DAILY 09/15 1314 AC PO Atorvastatin Calcium 40 MG 1700 09/15 1700 AC PO Ergocalciferol 50,000 IU QTUES 09/17 0900 AC PO Heparin Sodium 5,000 UNIT Q8 09/15 1400 AC (Porcine) SC Omeprazole 20 MG DAILY AC 09/15 1321 AC PO Omeprazole 20 MG DAILY 09/15 1314 CAN PO Tramadol HCl 50 MG TIDPRN PRN 09/15 1315 AC PO Review of Systems Review of Systems: The review of systems is negative for chest pains, palpitations nor lightheadedness. The remainder of the 14 point review of systems is noncontributory with the exception of above. 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 Home Who Do You Live With? spouse Services at Home: None Primary Language: Bermudian Smoking Status: Current Everyday Smoker ETOH Use: denies use Functional Ability ADLs Independent: dressing, eating, toileting, bathing. Ambulation: independent IADLs Independent: finances. Exam & Diagnostic Data Vital Signs and I&O Vital Signs Date Time Temp Pulse Resp B/P B/P Pulse O2 O2 Flow FiO2 Mean Ox Delivery Rate 09/15 1413 98.3 103 20 150/90 97 Room Air 09/15 1331 98 22 165/95 99 Room Air 09/15 1133 88 18 139/88 97 Room Air Room Air 09/15 0901 97.2 63 18 153/90 96 Room Air 09/15 0829 89 18 137/71 98 Room Air Room Air 09/15 0712 92 18 142/81 98 Room Air Room Air 09/15 0627 98 Room Air 09/15 0621 97.0 104 18 142/93 98 Room Air Intake & Output 09/15 1600 09/15 0800 09/15 0000 09/14 1600 09/14 0800 09/14 0000 Intake Total Output Total Balance Patient 191 lb 184 lb Weight Weight Bed scale Reported by Patient Measurement Method Physical Exam: General: Nontoxic, no apparent distress. HEENT: Sclera and conjunctiva within normal limits, without xanthelasmas. Neck: Carotids 2+ without bruits. Respiratory: Clear to auscultation, air movement is good, without accessory respiratory muscle use. Heart: Regular rate and rhythm, without murmurs, without JVD. Abdomen: Soft, nontender, no masses, normoactive bowel sounds. Extremities: Without clubbing, cyanosis, without edema. Neuro: Nonfocal exam, strength, 5 out of 5 Skin: Within normal limits without lesions. Psych: Mood and affect: Normal Labs/Cy Results: Laboratory Tests 09/15 09/15 09/15 1315 0931 0904 Chemistry Troponin I (<0.11 ng/ml) 0.18 *H Urines Urine Color (YEL,AMB,STR) YEL Urine Clarity (CLEAR) HAZY H Urine pH (5.0 - 8.0) 6.5 Ur Specific [place] (1.001 - 1.035) 1.015 Urine Protein (NEG,<30 MG/DL) TRACE H Urine Ketones (NEG) NEG Urine Nitrite (NEG) NEG Urine Bilirubin (NEG) NEG@ICTO Urine Urobilinogen (0.1 - 1.0 EU/dl) 1.0 Ur Leukocyte Esterase (NEG) NEG Ur Microscopic SEDIMENT EXAMINED Urine RBC (0 - 5 /HPF) RARE Urine WBC (0 - 2 /HPF) RARE Ur Epithelial Cells (NONE,FEW) FEW Urine Bacteria (NEG/NONE) RARE H Hyaline Casts (0/LPF) RARE H Granular Casts (NONE /LPF) RARE H Urine Mucus (FEW,NONE) MOD H Urine Hemoglobin (NEG) NEG Urine Osmolality (300 - 1000 MOSM/KG) 839 Urine Glucose (N MG/DL) NEG 09/15 0630 Chemistry Sodium (137 - 145 mmol/L) 127 L Potassium (3.5 - 5.1 mmol/L) 4.5 Chloride (98 - 107 mmol/L) 90 L Carbon Dioxide (22 - 30 mmol/L) 26 Anion Gap (5 - 16) 11 BUN (9 - 20 mg/dL) 16 Creatinine (0.7 - 1.2 mg/dL) 0.7 Estimated GFR (>60 ml/min) > 60 BUN/Creatinine Ratio (7 - 25 %) 22.9 Glucose (65 - 99 mg/dL) 103 H Hemoglobin A1c (4.2 - 5.8 %) Pending Serum Osmolality (285 - 295 MOSM/KG) 275 L Calcium (8.4 - 10.2 mg/dL) 8.3 L Magnesium (1.6 - 2.3 mg/dL) 2.1 Total Bilirubin (0.2 - 1.3 mg/dL) 1.1 AST (17 - 59 U/L) 157 H ALT (21 - 72 U/L) 75 H Alkaline Phosphatase (< 127 U/L) 594 H Lactate Dehydrogenase (313 - 618 U/L) 1250 H Troponin I (<0.11 ng/ml) 0.14 *H Total Protein (6.3 - 8.2 g/dL) 6.3 Albumin (3.5 - 5.0 g/dL) 2.9 L Globulin (1.9 - 4.2 gm/dL) 3.4 Albumin/Globulin Ratio (1.1 - 2.2 %) 0.9 L Triglycerides (<150 mg/dL) Pending Cholesterol (< 200 MG/DL) Pending LDL Cholesterol, Calc (65 - 129 mg/dL) Pending HDL Cholesterol (40 - 60 mg/dL) Pending Cholesterol/HDL Ratio (0.00 - 4.88 %) Pending Coagulation PT (9.4 - 12.5 SEC) 18.7 H INR (0.90 - 1.17) 1.71 H Hematology CBC w Diff MAN DIFF ORDERED WBC (4.8 - 10.8 /CUMM) 21.1 H RBC (4.70 - 6.10 /CUMM) 5.50 Hgb (14.0 - 18.0 G/DL) 13.8 L Hct (42 - 52 %) 43.6 MCV (80.0 - 94.0 FL) 79.2 L MCH (27.0 - 31.0 PG) 25.1 L MCHC (33.0 - 37.0 G/DL) 31.8 L RDW (11.5 - 14.5 %) 16.5 H Plt Count (130 - 400 /CUMM) 177 MPV (7.4 - 10.4 FL) 7.8 Gran % (42.2 - 75.2 %) 84.8 H Lymphocytes % (20.5 - 51.1 %) 10.4 L Monocytes % (1.7 - 9.3 %) 4.2 Eosinophils % (0 - 5 %) 0.2 Basophils % (0.0 - 2.0 %) 0.4 Absolute Granulocytes (1.4 - 6.5 /CUMM) 17.9 H Segmented Neutrophils (42.2 - 75.2 %) 87 H Band Neutrophils (0.0 - 5.0 %) 3 Absolute Lymphocytes (1.2 - 3.4 /CUMM) 2.2 Lymphocytes (20.5 - 51.1 %) 7 L Monocytes (1.7 - 9.3 %) 2 Absolute Monocytes (0.10 - 0.60 /CUMM) 0.9 H Absolute Eosinophils (0.0 - 0.7 /CUMM) 0 Basophils (0.0 - 2.0 %) 1 Absolute Basophils (0.0 - 0.2 /CUMM) 0.1 Platelet Estimate (ADEQUATE) ADEQUATE Polychromasia 1+ Hypochromic-Microcytic 2+ Poikilocytosis 1+ Anisocytosis 1+ Microcytic Cells 1+ Target Cells FEW [place] Cells FEW Assessment/Plan Assessment/Plan 67-year-old gentleman with a past medical history of gastroesophageal reflux disease as well as recently suspected lung CA with 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 He presents to our hospital with acute left facial weakness as well as arm paresthesias and speech slurring. He is found to have an acute/subacute CVA in the left parietal region; however, has as well noted to have a right upper lobe pulmonary embolism and mild troponin isoenzyme elevation. Acute CVA: The patient presents with an acute CVA in the context of a pulmonary embolism. A possible scenario would be a DVT with both pulmonic artery embolization as well as a paradoxical embolism through a possible PFO/ASD resulting in a CVA. Input by neurology as to the earliest time to initiate anticoagulation therapy ( full anticoagulation with heparin) will need to be obtained. Acute pulmonary embolism: As above, given the acute pulmonary embolism seen on CAT scan, the etiology of his mild troponin isoenzyme elevation is likely secondary to the same. We will obtain an echocardiogram, and given the systemic embolization (CVA) noted, his echocardiogram should be performed with concurrent administration of saline contrast to evaluate for a PFO/ASD. Troponin isoenzyme elevation: The patient has a minimal troponin isoenzyme elevation in the setting of an cute pulmonary embolism. The most likely etiology for the elevation is from his pulmonary embolism; however, given the concurrent CVA and risk of paradoxical embolism, the possibility of a paradoxical embolism into a coronary artery with resultant occlusion as well exists. He remains on aspirin, and we will initiate beta-angie therapy. Given the presence of atherosclerosis seen on scan, statins will as well be maintained. Discussion with neurology regarding the timing of full anticoagulation will be undertaken. Possible lung CA with liver/pancreatic metastasis: The patient requires a biopsy for further clarification. Given the timing of his acute CVA as well as pulmonary embolism, the timing of the biopsy will need to be discussed regarding safety of performing the same while on coagulation versus holding anticoagulation. Thank you for allowing us to participate in the care of your patient. Please do not hesitate to contact us further with any questions. Sincerely, Howard Zapata MD [facility] Consult Acknowledgment - Thank you for your consult request.
--- NOTE | 2017-09-15 16:12 | ULTRASOUND REPORT ---
EXAMINATION: US TRIPLEX OF LOWER EXTREMITIES, BILATERAL CLINICAL INFORMATION: Cyanosis of right fifth toe. Leg swelling. Pulmonary embolus detected on CT exam of neck. COMPARISON: None TECHNIQUE: Color-flow triplex imaging with spectral analysis and compression Doppler were performed on the lower extremities. FINDINGS: The common femoral vein is compressible and exhibits a normal phasic waveform, bilaterally; this suggests that the iliac veins are widely patent above. Within each proximal thigh, the visualized profunda femoris vein is patent. The visualized greater saphenous veins and saphenofemoral junctions are normal. Superficial femoral vein is patent in the proximal, mid and distal aspect of each thigh. Popliteal vein appears normal to the level of the trifurcation, bilaterally, and the visualized calf veins are unremarkable. No evidence of Stewart's cyst. IMPRESSION: No evidence of deep vein thrombosis in either lower extremity.
--- NOTE | 2017-09-15 16:24 | ULTRASOUND REPORT ---
EXAMINATION: US DUPLEX LOWER EXTREMITY ARTERY/GRAFT LIMITED, RIGHT CLINICAL INFORMATION: 67-year-old male with cyanosis of right fifth toe. COMPARISON: CT images of the abdomen from 09/06/2017 TECHNIQUE: Grayscale and pulsed color Doppler images with spectral waveform analysis of major vessels of right lower extremity was performed using a linear 8 MHz transducer. FINDINGS: Common femoral artery - peak systolic velocity of 79 cm/sec; high amplitude, monophasic waveform; atherosclerotic calcification of the vessel without occlusion or focal high-grade stenosis. Proximal profunda femoris artery - peak systolic velocity of 72 cm/sec; biphasic waveform. SFA, proximal - peak systolic velocity of 26 cm/sec; monophasic waveform. Irregular atherosclerotic plaque within the proximal vessel produces moderate stenosis. SFA, mid - peak systolic velocity of 54 cm/sec; high amplitude, monophasic flow pattern. SFA, distal - peak systolic velocity of 43 cm/sec; monophasic flow. Popliteal - peak systolic velocity of 40 cm/sec, proximally and 52 cm/sec, distally; flow is monophasic (i.e. no flow reversal below baseline); irregular atherosclerotic plaque of the vessel without focal high-grade stenosis or occlusion. Leg vessels - the visualized anterior and posterior tibial arteries, which exhibit relatively weak monophasic flow, exhibit peak systolic velocities of 29 cm/sec and 39 cm/sec, respectively. Dorsalis pedis artery, which has monophasic flow, has peak systolic velocity of 40 cm/sec. IMPRESSION: There is extensive atherosclerotic disease of peripheral vessels. The abnormal waveform of the common femoral artery indicates presence of significant disease in more proximal (i.e., iliac) vessels. Atherosclerotic plaque produces moderate, irregular stenosis in the proximal SFA. The visualized femoral, popliteal and leg vessels are patent but have abnormal waveforms due to the hemodynamically significant disease. For a more complete anatomic assessment of the peripheral vessels, CT angiography-runoff examination could be performed. To further evaluate the severity of peripheral vascular disease, NOLBERTO measurements and pulse volume recordings may be obtained at a dedicated vascular lab.
--- NOTE | 2017-09-15 17:36 | Cons- Vascular Surgery ---
Eladia Eid 09/15/17 1713: General Information and HPI Consulting Request Date of Consult: 09/15/17 Requested By: Emmie Ellis MD Reason for Consult: Cyanotic 5th toe, right foot Source of Information: patient, old records Exam Limitations: no limitations History of Present Illness: Mr. Ulloa is a 67-year-old man with past medical history of pulmonary/hepatic /pancreatic lesions of unknown etiology, AAA, and GERD brought in by ambulance for slurred speeach and facial droop. He reports that he stopped taking aspirin as of this morning in anticipation of a liver biopsy on Saturday to determine the source of these lesions. Patient reportedly went to bed around midnight last night in his normal state of health. He awoke around 5:30 and went downstairs to make coffee. When drinking the coffee shortly after he notices that it kept "dribbling" out of his mouth. He then saw him and noticed that his speech was slurred and he has a facial droop. Patient reports left hand weakness / clumsyness during this time and states that he couldnt grab the television report. He left leg also felt weak. For evaluation of these symptoms EMS was contaced and patient was brought to the [place] ED. CT imaging obtained of his head shows a possible small acute to subacute infarct involving the left parietal lobe as well as a smaller infarct of indeterminate age within the right parietal lobe. Presently patient states that his symptoms have almost entirely resolved. He admits his left hand is still somewhat clumsy. He otherwise feels well and has no complaints. He reports that tomorrow he was going to see a vascular surgeon for his "blue" right 5th toe. This toe is reported by the patient to have been cyanotic for over a month now. On this visit, he has had imaging done of his lower extremities to include doppler and duplex studies. Doppler studies negative for vte. Duplex studies suggestive of atherosclerotic disease and stenosis in sfa and iliacs. Vascular surgery has been called for further management. 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 Home Who Do You Live With? spouse Services at Home: None Primary Language: Hungarian Smoking Status: Current Everyday Smoker ETOH Use: denies use Functional Ability ADLs Independent: dressing, eating, toileting, bathing. Ambulation: independent IADLs Independent: finances. Review of Systems Review of Systems: See H&P Exam & Diagnostic Data Vital Signs and I&O Vital Signs Date Time Temp Pulse Resp B/P B/P Pulse O2 O2 Flow FiO2 Mean Ox Delivery Rate 09/15 1413 98.3 103 20 150/90 97 Room Air 09/15 1400 98.3 103 20 150/90 97 09/15 1331 98 22 165/95 99 Room Air 09/15 1133 88 18 139/88 97 Room Air Room Air 09/15 0901 97.2 63 18 153/90 96 Room Air 09/15 0829 89 18 137/71 98 Room Air Room Air 09/15 0712 92 18 142/81 98 Room Air Room Air 09/15 0627 98 Room Air 09/15 0621 97.0 104 18 142/93 98 Room Air Intake & Output 09/15 1600 09/15 0800 09/15 0000 09/14 1600 09/14 0800 09/14 0000 Intake Total Output Total Balance Patient 191 lb 184 lb Weight Weight Bed scale Reported by Patient Measurement Method Physical Exam: General: Alert and oriented x3, no acute distress Cardiac: RRR Lungs: Non-labored respiratory effort Abdomen: Soft, non-tender Extremiteis: Moves all extremities. Neuro intact, residual weakness to left hand appreciated. Bilateral lower extremity skin warm and well perfused with the exception of right 5th toe, cyanotic to plantar aspect. DP and PT pulses are palpable bilaterally. Femoral pulses palpable bilaterally. Assessment/Plan Assessment/Plan This is a 67 year old male who presents today with complaints of left sided facial droop and residual hand weakness. It has been determined that the patient has multiple lesions on liver, kidney, pancreas and quite possibly lung. He is currently being worked up and was scheduled to undergo a liver biopsy later this week. Since admission to [facility] this visit, he has undergone CT imaging of head and neck with angiography. A CVA has not been ruled out. He is awaiting a CTA of chest for PE studies. Vascular surgery was called to evaluate his right 5th toe cyanosis. This case was discussed with Dr. Abernathy of vascular surgery. In order to minimize dye load, it is recommended that this patient undergo an angiogram intra-operatively as opposed to a CTA with runoff. This can be scheduled for later this week as long as the patient remains stable from a vascular standpoint. If the patient is discharged prior to this study being done on this hospital visit, he is to follow up this week with Dr. Abernathy as an outpatient and Dr. Abernathy will follow him closely. Consult Acknowledgment - Thank you for your consult request. Michela VIDAL,Jaycob 09/17/17 8470: General Information and HPI Consulting Request Requested By: Dee Dee VIDAL,[facility] Allergies/Medications Allergies: Coded Allergies: No Known Allergies (09/15/17) Home Med List: Aspirin (Ecotrin*) 81 MG TABLET.DR 1 TAB PO DAILY HEART (Reported) Ergocalciferol (Vitamin D2) (Vitamin D2) 50,000 UNIT CAPSULE 1 CAP PO QTUES SUPPLEMENT (Reported) Omeprazole 20 MG CAPSULE.DR 1 CAP PO DAILY GERD (Reported) Tramadol HCl (Ultram) 50 MG TABLET 1 TAB PO TIDPRN PAIN (Reported) Current Medications: Current Medications Sig/Lola Start time Last Medication Dose Route Stop Time Status Admin Acetaminophen 650 MG Q6P PRN 09/15 1330 AC PO Atorvastatin Calcium 40 MG 1700 09/15 1700 AC 09/17 PO 1627 Ergocalciferol 50,000 IU QTUES 09/17 0900 AC 09/17 PO 0936 Heparin Sodium 25,000 UNIT Q24H 09/16 1345 AC 09/17 (Porcine) IV 1239 Sodium Chloride 500 ML Loperamide HCl 2 MG Q6P PRN 09/17 0800 AC 09/17 PO 1250 Metoprolol Tartrate 12.5 MG BID 09/15 2100 AC 09/17 PO 0936 Omeprazole 20 MG DAILY AC 09/15 1321 AC 09/17 PO 0709 Tramadol HCl 50 MG TIDPRN PRN 09/15 1315 AC PO Assessment/Plan Consult Acknowledgment - Thank you for your consult request. Attending MD Review Statement Attending Statement Attending Assessment/Plan: Agree with above , will try to book for angiogram. High risk , multiple medical probems, will schedule for angigram. If discharged prior to that, will schedule as oupatient.
[2017-09-15 22:25] VITALS: BP 110/70
[2017-09-16 06:39] VITALS: BP 114/68
--- NOTE | 2017-09-16 07:09 | PN- Housestaff ---
Jimbo VIDAL,[facility] 09/16/17 0709: Subjective Follow-up For: TIA Tele-Events Since Last Visit: NSR with HR 82-87. No overnight events. Subjective: Patient was seen and examined at bedside. He reports doing okay. Offers no complaints. No further episodes of slurred speech, weakness or any other associated symptoms. Review of Systems Constitutional: Reports: no symptoms. Objective Last 24 Hrs of Vital Signs/I&O Vital Signs Date Time Temp Pulse Resp B/P B/P Pulse O2 O2 Flow FiO2 Mean Ox Delivery Rate 09/16 1400 98.3 73 20 112/60 95 09/16 0917 81 114/68 09/16 0639 98.9 81 22 114/68 93 09/15 2225 99.3 99 22 110/70 94 09/15 2111 99 110/70 Intake & Output 09/16 1600 09/16 0800 09/16 0000 Intake Total 240 300 Output Total Balance 240 300 Intake, Oral 240 300 Patient 181 lb Weight Physical Exam General Appearance: Alert, Oriented X3, Cooperative, No Acute Distress Skin: No Rashes, No Breakdown Skin Temp/Moisture Exam: Warm/Dry Sepsis Skin Exam (color): Normal for Ethnicity HEENT: Atraumatic Cardiovascular: Normal S1, Normal S2, No Murmurs Lungs: Clear to Auscultation, Normal Air Movement Abdomen: Soft, No Tenderness Neurological: Normal Speech, Strength at 5/5 X4 Ext, Normal Tone, Sensation Intact, Cranial Nerves 3-12 NL Extremities: No Edema, Cyanotic right 5th toe Assessment/Plan Assessment: 67 year old man with probable metastatic disease seen for evaluation of slurred speech and facial droop found to have an small acute left parietal CVA. Assessment: 1. 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 Multiple Bilateral Pulmonary Embolism 4. Metastatic disease 5. Elevated Troponins 6. Hyponatremia 7. Elevated INR 8. Elevated LFTs Plan: * Continue monitoring on telemetry floor. * His troponins are still rising slowly. Will trend until they peak. * He does not appear to have any focal neurological deficit at this time but will continue neurochecks * He will need an echo with bubble study - pending * His CTA chest today showed bilateral multiple pulmonary embolism * Discontinue aspirin. Begin AC with IV heparin. This has been discussed with Neurology. * Bilateral lower extremity venous Doppler was negative * He will have his liver biopsy on Saturday. The heparin will need to be turned off 4 hours prior to the procedure. * Continue Atorvastatin 40 mg PO Daily * Continue metoprolol tartrate 12.5 mg p.o. 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 * Fluid restriction for hyponatremia * Arterial U/S of right lower extremity showed extensive atherosclerotic disease of peripheral vessels. He will require an intraoperative angiogram later in the week per vascular surgery. * Trend LFTs. * Will monitor INR * HbA1c is 5.5. Lipid panel wnl except for elevated TGs * Continue home meds: Vitamin D, Omeprazole, Tramadol * Diet: Heart healthy diet with 1200cc fluid restriction * DVT Prophylaxis: IV Heparin * Code: DNR. Intubation is okay Problem List: 1. Hyponatremia Pain Ratin Pain Location: none Pain Goal: Remain pain free Pain Plan: none Tomorrow's Labs & Rationales: CBC, BEP Chip Funez 09/16/17 1450: Attending MD Review Statement Attending Statement Attending MD Statement: examined this patient, discuss w/resident/PA/FAREBOX REPAIRER, agreed w/resident/PA/FAREBOX REPAIRER, discussed with family, reviewed EMR data (avail), discussed with nursing, discussed with case mgmt, reviewed images, amended to note Attending Assessment/Plan: 67 o/m with pmh of hepatic metastases was scheduled to come for liver biospy and old stroke developed stroke like symptoms, not tpa candidate admitted to inpatient telemetry monitoring for acute CVA with acute multiple bilateral pulmonary embolism and uncontrolled hypertension with elevation of cardiac enzymes type 2 VT. Neurology and Cardiology consulted. Start anticoagulation as cleared by neurology for possible benefit of PE treamtnet and prevention in future as compared to very small risk of hemorrhagic conversion from small stroke. Frequent neurochecks Planned IR guided biopsy on Saturday for liver mets so will start on iv heparin for now for easy titration before the procedure. ASA/statin for stroke prevention as per neurology. Hyponatremia likely SIADH fluid restriction and Na monitoring. Uncontrolled hypertension Elevated cardiac enzymes type 2 VT, no chest pain and non specific ekg changes. Vascular surgery consult appreciated for peripheral arterial disease and abnomral waveforms, w/u as elective intra-operative angiogram. Discuss with family risks/benefits of medical management. total time spent>37 min in this complex scenario.
[2017-09-16 08:17] LABS: PT 17.9 SEC (9.4-12.5)
[2017-09-16 08:28] LABS: ABSOLUTE BASOPHIL COUNT 0 /CUMM (0.0-0.2); ABSOLUTE EOSINOPHIL COUNT 0 /CUMM (0.0-0.7); ABSOLUTE GRANULOCYTE CT 15.9 /CUMM (1.4-6.5); ABSOLUTE MONOCYTE COUNT 1.1 /CUMM (0.10-0.60); BASOPHIL % 0 % (0.0-2.0); EOSINOPHIL % 0.1 % (0-5); HEMATOCRIT 40.4 % (42-52); MEAN CORPUSCULAR HGB 25.7 PG (27.0-31.0); MEAN CORPUSCULAR HGB CONC 32.1 G/DL (33.0-37.0); MEAN CORPUSCULAR VOLUME 79.9 FL (80.0-94.0); PLATELET COUNT 169 /CUMM (130-400); RBC DISTRIBUTION WIDTH 17.2 % (11.5-14.5); RED BLOOD CELL CT 5.06 /CUMM (4.70-6.10)
[2017-09-16 09:28] LABS: GRANULOCYTE % 83.5 % (42.2-75.2)
--- NOTE | 2017-09-16 12:18 | CT SCAN REPORT ---
EXAMINATION: CT ANGIOGRAM OF THE CHEST WITH CONTRAST (CT PULMONARY ANGIOGRAM FOR PE) CLINICAL INFORMATION: Pulmonary embolism observed on CT angiography imaging of the head-neck. COMPARISON: Chest CT of 09/06/2017. CT angiography images from 09/15/2017. TECHNIQUE: Prior to contrast administration, noncontrast localization images were obtained. Subsequently, multidetector volumetric imaging was performed from the thoracic inlet to below the diaphragms following the administration of 95 mL Optiray 320 intravenous contrast. No contrast reaction reported. Sagittal, coronal, and MIP oblique sagittal reformatted images were obtained on the CT workstation, uploaded to PACS, and reviewed. DLP: Total exam dose-length product 417 mGy-cm FINDINGS: QUALITY OF STUDY/CONTRAST BOLUS: Satisfactory. PULMONARY ARTERIES: Again noted are emboli within segmental and subsegmental branches to the anterior segment and apex of the right upper lobe. Also, embolus is present within a subsegmental branch of the posterior right upper lobe. Emboli are present within segmental and subsegmental branches of the lateral right middle lobe and within a subsegmental branch of the medial middle lobe. There are emboli within subsegmental branches of the superior segment of the right lower lobe, segmental and subsegmental branches of the posterior, medial and lateral right lower lobe. There are likely small emboli within a subsegmental branch of the apicoposterior segment of the left upper lobe and within a subsegmental branch of the superior segment left lower lobe. Also, there are scattered emboli within left lower lobe arteries. THORACIC AORTA: Mild atherosclerotic calcification of the thoracic aorta. The ascending aorta measures up to 4 cm transverse and 4 cm AP diameter. No aortic dissection. LUNGS AND PLEURA: Trachea and central bronchi are widely patent and normal in caliber. Multiple calcified granulomas of the right upper and right lower lobes. Mild centrilobular and paraseptal emphysema. A small, linear opacity in the right middle lobe is of no appreciable significance (sagittal reformatted image 80 of 92). There are very small, 0.2 cm noncalcified peripheral nodules of the left upper lobe (images 89 and 107, series 2). No convincing metastasis within either lung. The areas of peripheral consolidation and groundglass attenuation in the lateral left lower lobe and posterior right lower lobe likely represent combination of atelectasis and pulmonary infarction/hemorrhage. No pleural effusion. CARDIOVASCULAR: The heart size is normal. There is mild atherosclerotic calcification of left anterior descending coronary artery. No pericardial effusion. No inward bowing of the interventricular septum. No evidence of heart strain. MEDIASTINUM: The esophagus has normal wall thickness. The visualized portion of the thyroid gland is unremarkable. No mediastinal mass. LYMPHATICS: No pathologic sized axillary, hilar or mediastinal lymph nodes. UPPER ABDOMEN: Enlarged, heterogeneous liver. The multiple hepatic metastases are more clearly depicted on the abdominal CT images of 09/06/2017. There is heterogeneous tissue thickening of the pancreatic tail, partially included in the [id number]. No reflux of contrast into the inferior vena cava. Small amount of ascitic fluid is present within the upper abdomen. OSSEOUS STRUCTURES: Hemangiomas of T4 and T10 vertebral bodies. No aggressive osseous lesions within the thorax. IMPRESSION: 1. Multiple bilateral pulmonary emboli without evidence of right heart strain. 2. Peripheral areas of consolidation and hazy opacity in the posterior right lower lobe and lateral left lower lobe likely represent a combination of atelectasis and infarction. 3. Multiple hepatic metastases -- possibly originating from a neoplasm of the pancreatic tail. 4. Small amount of ascitic fluid is present in the visualized upper abdomen.
--- NOTE | 2017-09-16 12:53 | PN- Cardiology ---
Subjective Subjective: Patient doing well today. Feels neurologic deficits are improving. Denies shortness of breath or chest pain. Objective Vital Signs and I&Os Vital Signs Date Time Temp Pulse Resp B/P B/P Pulse O2 O2 Flow FiO2 Mean Ox Delivery Rate 09/16 0917 81 114/68 09/16 0639 98.9 81 22 114/68 93 09/15 2225 99.3 99 22 110/70 94 09/15 2111 99 110/70 09/15 1413 98.3 103 20 150/90 97 Room Air 09/15 1400 98.3 103 20 150/90 97 09/15 1331 98 22 165/95 99 Room Air Intake & Output 09/16 1600 09/16 0800 09/16 0000 09/15 1600 09/15 0800 09/15 0000 Intake Total 240 300 Output Total Balance 240 300 Intake, Oral 240 300 Patient 181 lb 191 lb 184 lb Weight Weight Bed scale Reported by Patient Measurement Method Physical Exam: General: no apparent distress. Alert. Eyes: No obvious scleral icterus. HEENT: No jugular venous distention or abnormal jugular venous pulsations. Cardiovascular: Normal intensity S1/S2. Regular Respiratory: Lungs clear to auscultation bilaterally. Abdomen: Soft, nontender with no guarding or rebound tenderness. Musculoskeletal: No clubbing or cyanosis noted Skin: warm Neurologic: Normal speech Current Medications: Current Medications Sig/Lola Start time Last Medication Dose Route Stop Time Status Admin Acetaminophen 650 MG Q6P PRN 09/15 1330 AC PO Aspirin Buffered 81 MG DAILY 09/15 1314 AC 09/16 PO 0917 Atorvastatin Calcium 40 MG 1700 09/15 1700 AC 09/15 PO 1643 Ergocalciferol 50,000 IU QTUES 09/17 0900 AC PO Heparin Sodium 5,000 UNIT Q8 09/15 1400 AC 09/16 (Porcine) SC 0548 Metoprolol Tartrate 12.5 MG BID 09/15 2100 AC 09/16 PO 0917 Omeprazole 20 MG DAILY AC 09/15 1321 AC 09/16 PO 0547 Omeprazole 20 MG DAILY 09/15 1314 CAN PO Tramadol HCl 50 MG TIDPRN PRN 09/15 1315 AC PO Results Last 48 Hrs of Labs/Mics: Laboratory Tests 09/16/17 0618: Anion Gap 9, Estimated GFR > 60, BUN/Creatinine Ratio 24.3, Magnesium 2.0, Total Bilirubin 1.2, Direct Bilirubin 0.7 H, AST 318 H, ALT 117 H, Alkaline Phosphatase 546 H, Troponin I 0.45 *H, Total Protein 6.0 L, Albumin 2.7 L, PT 17.9 H, INR 1.63 H, CBC w Diff NO MAN DIFF REQ, RBC 5.06, MCV 79.9 L, MCH 25.7 L, MCHC 32.1 L, RDW 17.2 H, MPV 10.0, Gran % 83.5 H, Lymphocytes % 10.5 L, Monocytes % 5.9, Eosinophils % 0.1, Basophils % 0, Absolute Granulocytes 15.9 H, Absolute Lymphocytes 2.0, Absolute Monocytes 1.1 H, Absolute Eosinophils 0, Absolute Basophils 0 09/16/17 0012: Troponin I 0.34 *H 09/15/17 1800: Troponin I 0.20 *H 09/15/17 1315: Troponin I 0.18 *H 09/15/17 0927: Urine Osmolality 839 09/15/17 0927: Urine Color YEL, Urine Clarity HAZY H, Urine pH 6.5, Ur Specific [place] 1.015, Urine Protein TRACE H, Urine Ketones NEG, Urine Nitrite NEG, Urine Bilirubin NEG@ICTO, Urine Urobilinogen 1.0, Ur Leukocyte Esterase NEG, Ur Microscopic SEDIMENT EXAMINED, Urine RBC RARE, Urine WBC RARE, Ur Epithelial Cells FEW, Urine Bacteria RARE H, Hyaline Casts RARE H, Granular Casts RARE H, Urine Mucus MOD H, Urine Hemoglobin NEG, Urine Glucose NEG 09/15/17 0630: Anion Gap 11, Estimated GFR > 60, BUN/Creatinine Ratio 22.9, Glucose 103 H, Hemoglobin A1c 5.5, Serum Osmolality 275 L, Calcium 8.3 L, Magnesium 2.1, Total Bilirubin 1.1, AST 157 H, ALT 75 H, Alkaline Phosphatase 594 H, Lactate Dehydrogenase 1250 H, Troponin I 0.14 *H, Total Protein 6.3, Albumin 2.9 L, Globulin 3.4, Albumin/Globulin Ratio 0.9 L, Triglycerides 182 H, Cholesterol 69, LDL Cholesterol, Calc 17 L, HDL Cholesterol 16 L, Cholesterol/HDL Ratio 4, PT 18.7 H, INR 1.71 H, CBC w Diff MAN DIFF ORDERED, RBC 5.50, MCV 79.2 L, MCH 25.1 L, MCHC 31.8 L, RDW 16.5 H, MPV 7.8, Gran % 84.8 H, Lymphocytes % 10.4 L, Monocytes % 4.2, Eosinophils % 0.2, Basophils % 0.4, Absolute Granulocytes 17.9 H, Segmented Neutrophils 87 H, Band Neutrophils 3, Absolute Lymphocytes 2.2, Lymphocytes 7 L, Monocytes 2, Absolute Monocytes 0.9 H, Absolute Eosinophils 0, Basophils 1, Absolute Basophils 0.1, Platelet Estimate ADEQUATE, Polychromasia 1+, Hypochromic-Microcytic 2+, Poikilocytosis 1+, Anisocytosis 1+, Microcytic Cells 1+, Target Cells FEW, [place] Cells FEW Recent Imaging Studies: Telemetry tracings were personally reviewed and shows sinus rhythm CTA: 1. Multiple bilateral pulmonary emboli without evidence of right heart strain. 2. Peripheral areas of consolidation and hazy opacity in the posterior right lower lobe and lateral left lower lobe likely represent a combination of atelectasis and infarction. 3. Multiple hepatic metastases -- possibly originating from a neoplasm of the pancreatic tail. 4. Small amount of ascitic fluid is present in the visualized upper abdomen. Assessment/Plan Assessment/Plan 1. Acute CVA 2. Acute pulmonary embolism with mild troponin elevation 3. Likely metastatic malignancy 4. Peripheral vascular disease 5. Hyponatremia CT angiogram as above shows multiple bilateral pulmonary emboli. Initiate anticoagulation when cleared. Echocardiogram is pending (this should be done with agitated saline "Bubble study" as already recommended by Dr. Zapata yesterday given the concern for intracardiac shunt in the setting of CVA and pulmonary embolus). He is currently receiving aspirin and statin therapy. Continue on telemetry to monitor for any evidence of atrial fibrillation. Sergei De Oliveira MD [facility] Continue telemetry? Yes
[2017-09-16 14:00] VITALS: BP 112/60
[2017-09-16 22:24] VITALS: BP 118/78
[2017-09-16 23:08] LABS: PTT 86 SEC (25-37)
--- NOTE | 2017-09-17 07:04 | PN- Housestaff ---
Jimbo VIDAL,[facility] 09/17/17 0704: Subjective Follow-up For: TIA Malignancy Tele-Events Since Last Visit: NSR with HR 75-81. No overnight events. Subjective: States he had 6-8 episodes of diarrhea overnight which makes him feel dehydrated. He wishes to go home soon. He was explained the rationale for continued need for hospitalization. Review of Systems Constitutional: Reports: no symptoms. Objective Last 24 Hrs of Vital Signs/I&O Vital Signs Date Time Temp Pulse Resp B/P B/P Pulse O2 O2 Flow FiO2 Mean Ox Delivery Rate 09/16 2224 98.9 79 18 118/78 93 Room Air 09/16 202 76 120/76 09/16 1400 98.3 73 20 112/60 95 09/16 0917 81 114/68 Intake & Output 09/17 0800 09/17 0000 09/16 1600 Intake Total 321 284 550 Output Total Balance 321 284 550 Intake, IV 104 50 Intake, Oral 321 180 500 Number 7 4 Bowel Movements Patient 174 lb Weight Physical Exam General Appearance: Alert, Oriented X3, Cooperative, No Acute Distress Skin: No Rashes, No Breakdown Skin Temp/Moisture Exam: Warm/Dry Sepsis Skin Exam (color): Normal for Ethnicity HEENT: Atraumatic Cardiovascular: Normal S1, Normal S2, No Murmurs Lungs: Clear to Auscultation, Normal Air Movement Abdomen: Soft, No Tenderness Neurological: Normal Speech, Strength at 5/5 X4 Ext, Normal Tone, Sensation Intact, Cranial Nerves 3-12 NL, slight pronator drift on the left Extremities: No Edema Last 24 Hrs of Lab/Cy Results Last 24 Hrs of Labs/Mics: Laboratory Tests 09/17/17 0617: Total Bilirubin Pending, Direct Bilirubin Pending, AST Pending, ALT Pending, Alkaline Phosphatase Pending, Total Protein Pending, Albumin Pending, PT Pending , INR Pending 09/16/17 2238: APTT 86 H 09/16/17 1955: Troponin I 0.40 *H 09/16/17 1250: Troponin I 0.49 *H Microbiology 09/17 0201 STOOL: Clostridium difficile Toxin A & B - RECD Assessment/Plan Assessment: 67 year old man with probable metastatic disease seen for evaluation of slurred speech and facial droop found to have an small acute left parietal CVA. Assessment: 1. 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 Multiple Bilateral Pulmonary Embolism 4. Metastatic disease 5. Elevated Troponins 6. Hyponatremia 7. Elevated INR 8. Elevated LFTs Plan: * Continue monitoring on telemetry floor. * His troponins peaked overnight. Likely Type II NE * He does not appear to have any focal neurological deficit at this time but will continue neurochecks * He will need an echo with bubble study - pending * His CTA chest yesterday showed bilateral multiple pulmonary embolism * Continue AC with IV heparin. * Bilateral lower extremity venous Doppler was negative * He will have his liver biopsy on Saturday. The heparin will need to be turned off 4 hours prior to the procedure. * Continue Atorvastatin 40 mg PO Daily * Continue metoprolol tartrate 12.5 mg p.o. 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 * Continue fluid restriction for hyponatremia. It is improving. * Arterial U/S of right lower extremity showed extensive atherosclerotic disease of peripheral vessels. Further plans per vascular surgery. Most likely will need a CTA runoff. * LFTs improving. No need to further monitor. * Will monitor INR * HbA1c is 5.5. Lipid panel wnl except for elevated TGs * Continue home meds: Vitamin D, Omeprazole, Tramadol * Diet: Heart healthy diet with 1200cc fluid restriction * DVT Prophylaxis: IV Heparin * Code: DNR. Intubation is okay Problem List: 1. Elevated troponin Pain Ratin Pain Location: none Pain Goal: Remain pain free Pain Plan: none Tomorrow's Labs & Rationales: CBC, BEP Chip Funez 09/17/17 1245: Attending MD Review Statement Attending Statement Attending MD Statement: examined this patient, discuss w/resident/PA/DRIVE WORKER, agreed w/resident/PA/DRIVE WORKER, discussed with family, reviewed EMR data (avail), discussed with nursing, discussed with case mgmt, reviewed images, amended to note Attending Assessment/Plan: Patient with no new complaints. He is tolerating iv heparin with no bleeding events reported. IR was called and they plan to keep him off aspirin for 3 days atleast before doing biospy. He is on statin therapy. Patient is on room air. Needs PT/OT evaluation prior to discharge. Also inform PCP Dr Richardson about admission and open MRI if needed?. O/p vascuar angiogram as per vascualr surgery. Plan of care d/wed patient and bedside. Overall prognosis remians guarded.
[2017-09-17 07:18] VITALS: BP 114/72
[2017-09-17 08:36] LABS: PT 16.7 SEC (9.4-12.5)
--- NOTE | 2017-09-17 09:09 | PN- Cardiology ---
Subjective Subjective: Patient denies chest pain or shortness of breath Review of Systems: Eyes no blurred or double vision Ears no deafness or ringing Nose and throat no recurrent sinusitis Lungs per history of present illness Heart per history of present illness Abdomen no nausea vomiting Musculoskeletal occasional muscle and joint pains Psych no anxiety or depression Neuro without recurrent headache or seizures Endocrine no heat or cold intolerance Objective Vital Signs and I&Os Vital Signs Date Time Temp Pulse Resp B/P B/P Pulse O2 O2 Flow FiO2 Mean Ox Delivery Rate 09/17 717 98.7 82 18 114/72 95 Room Air 09/16 2224 98.9 79 18 118/78 93 Room Air 09/16 2026 76 120/76 09/16 1400 98.3 73 20 112/60 95 09/16 0917 81 114/68 Intake & Output 09/17 1600 09/17 0800 09/17 0000 09/16 1600 09/16 0800 09/16 0000 Intake Total 529 284 550 240 300 Output Total Balance 529 284 550 240 300 Intake, IV 208 104 50 Intake, Oral 321 180 500 240 300 Number 7 4 Bowel Movements Patient 174 lb 181 lb Weight Physical Exam: Patient is a well-developed well-nourished male appearing in no acute distress HEENT is unremarkable Neck is supple there is no JVD Lungs clear Heart regular rhythm S1 and S2 are normal no murmurs gallops or rubs Abdomen bowel sounds positive Extremities without edema Current Medications: Current Medications Sig/Lola Start time Last Medication Dose Route Stop Time Status Admin Acetaminophen 650 MG Q6P PRN 09/15 1330 AC PO Aspirin Buffered 81 MG DAILY 09/15 1314 DC 09/16 PO 0917 Atorvastatin Calcium 40 MG 1700 09/15 1700 AC 09/16 PO 1700 Ergocalciferol 50,000 IU QTUES 09/17 0900 AC PO Heparin Sodium 25,000 UNIT Q24H 09/16 1345 AC 09/16 (Porcine) IV 1430 Sodium Chloride 500 ML Heparin Sodium 5,000 UNIT Q8 09/15 1400 DC 09/16 (Porcine) SC 0548 Loperamide HCl 2 MG Q6P PRN 09/17 0800 AC PO Metoprolol Tartrate 12.5 MG BID 09/15 2100 AC 09/16 PO 2027 Omeprazole 20 MG DAILY AC 09/15 1321 AC 09/17 PO 0709 Tramadol HCl 50 MG TIDPRN PRN 09/15 1315 AC PO Results Last 48 Hrs of Labs/Mics: Laboratory Tests 09/17/17 0617: Anion Gap 13, Estimated GFR > 60, BUN/Creatinine Ratio 25.7 H, Total Bilirubin 0.9, Direct Bilirubin 0.5 H, AST 204 H, ALT 98 H, Alkaline Phosphatase 501 H , Total Protein 5.5 L, Albumin 2.5 L, PT 16.7 H, INR 1.53 H 09/16/17 2238: APTT 86 H 09/16/17 1955: Troponin I 0.40 *H 09/16/17 1250: Troponin I 0.49 *H 09/16/17 0618: Anion Gap 9, Estimated GFR > 60, BUN/Creatinine Ratio 24.3, Magnesium 2.0, Total Bilirubin 1.2, Direct Bilirubin 0.7 H, AST 318 H, ALT 117 H, Alkaline Phosphatase 546 H, Troponin I 0.45 *H, Total Protein 6.0 L, Albumin 2.7 L, PT 17.9 H, INR 1.63 H, CBC w Diff NO MAN DIFF REQ, RBC 5.06, MCV 79.9 L, MCH 25.7 L, MCHC 32.1 L, RDW 17.2 H, MPV 10.0, Gran % 83.5 H, Lymphocytes % 10.5 L, Monocytes % 5.9, Eosinophils % 0.1, Basophils % 0, Absolute Granulocytes 15.9 H, Absolute Lymphocytes 2.0, Absolute Monocytes 1.1 H, Absolute Eosinophils 0, Absolute Basophils 0 09/16/17 0012: Troponin I 0.34 *H 09/15/17 1800: Troponin I 0.20 *H 09/15/17 1315: Troponin I 0.18 *H 09/15/17 0927: Urine Osmolality 839 09/15/17 0927: Urine Color YEL, Urine Clarity HAZY H, Urine pH 6.5, Ur Specific [place] 1.015, Urine Protein TRACE H, Urine Ketones NEG, Urine Nitrite NEG, Urine Bilirubin NEG@ICTO, Urine Urobilinogen 1.0, Ur Leukocyte Esterase NEG, Ur Microscopic SEDIMENT EXAMINED, Urine RBC RARE, Urine WBC RARE, Ur Epithelial Cells FEW, Urine Bacteria RARE H, Hyaline Casts RARE H, Granular Casts RARE H, Urine Mucus MOD H, Urine Hemoglobin NEG, Urine Glucose NEG Telemetry personally reviewed sinus rhythm Assessment/Plan Assessment/Plan 1. Acute CVA 2. Acute pulmonary embolism with mild troponin elevation 3. Likely metastatic malignancy 4. Peripheral vascular disease 5. Hyponatremia Recommendations 1. Echocardiogram is still pending to rule out intracardiac shunt 2. Continue heparin changed to NOAC after echocardiogram 3. Continue to monitor on telemetry Continue telemetry? Yes
--- NOTE | 2017-09-17 10:33 | ECHOCARDIOGRAM REPORT ---
PASHA UREÑA Age: 67 : 1950 Gender: M Exam Date: 09/17/2017 09:37 Exam Location: [address] Ht (in): 70 Wt (lb): 184 BSA: 2.04 BP: 114 / 68 Ordering Physician: Javier Shah MD Referring Physician: Javier Shah MD Technologist: Roque Watkins [facility] Room Number: 189-1 Indications: CVA Rhythm: Sinus Technical Quality: fair FINDINGS Left Ventricle Normal size left ventricle. Mildly abnormal left ventricular ejection fraction estimated at 45-50%. Akinetic posterior wall. Right Ventricle Normal right ventricular size and function. Right Atrium Normal right atrial size. Left Atrium Mild left atrial dilatation. . Mitral Valve Mild mitral annular calcification. [id number] mitral regurgitation. Aortic Valve Diffuse thickening (sclerosis) of the aortic valve cusps without reduced excursion. [id number] aortic regurgitation. Tricuspid Valve Tricuspid valve is normal in structure and function. Mild tricuspid regurgitation. Pulmonic Valve Pulmonic valve not well visualized, grossly normal. Pericardium No pericardial effusion. Great Vessels Mildly dilated proximal ascending aorta (tube). CONCLUSIONS Mildly reduced overall Left ventricular systolic function with akinesia of the posterobasal segment. Mild left atrial enlargement. Mild Dilatation of Ascending Aoirta. Ahmet Salinas M.D. (Electronically Signed) Final Date: 17 Sep 2017 10:32 MEASUREMENTS (Male / Female) Normal Values 2D ECHO LV Diastolic Diameter PLAX 5.4 cm 4.2 - 5.9 / 3.9 - 5.3 cm LV Systolic Diameter PLAX 4.1 cm 2.1 - 4.0 cm LV Fractional Shortening PLAX 24.1 % 25 - 46 % LV Ejection Fraction 2D Teich 47.5 % IVS Diastolic Thickness 1.2 cm LVPW Diastolic Thickness 1.0 cm LV Relative Wall Thickness 0.4 LVOT Diameter 2.1 cm Aortic Root Diameter 3.1 cm LA Systolic Diameter LX 3.8 cm 3.0 - 4.0 / 2.7 - 3.8 cm LV Ejection Fraction MOD BP 47.2 % >= 55 % LV Cardiac Index MOD BP 2492.7 cm/minm LV Diastolic Length 4C 7.2 cm 6.9 - 10.3 cm LV Diastolic Area 4C 36.1 cm LV Diastolic Volume MOD 4C 149.0 cm LV Ejection Fraction MOD 4C 45.0 % LV Stroke Volume MOD 4C 67.0 cm LV Cardiac Index MOD 4C 2492.7 cm/minm LV Systolic Length 4C 6.4 cm LV Systolic Area 4C 25.2 cm LV Systolic Volume MOD 4C 82.0 cm LV Ejection Fraction MOD 2C 42.0 % LV Cardiac Index MOD 2C 1860.2 cm/minm LV Diastolic Volume 4C AL 153.9 cm 85 - 139 / 69 - 109 cm LV Systolic Volume 4C AL 84.6 cm LV Ejection Fraction 4C AL 45.0 % LV Stroke Volume 4C AL 69.2 cm LV Cardiac Index 4C AL 2576.2 cm/minm LV Ejection Fraction 2C AL 45.3 % LV Cardiac Index 2C AL 2013.4 cm/minm Ascending Aorta Diameter 4.1 cm DOPPLER AV Peak Velocity 142.0 cm/s AV Peak Gradient 8.[address] [facility] 55.8 cm/s AI Peak Velocity 311.0 cm/s AI Pressure Half Time 1631.0 ms AI Peak Gradient 38.7 mmHg LVOT Peak Velocity 106.0 cm/s LVOT Peak Gradient 4.5 mmHg AV Area Cont Eq pk 2.6 cm Mitral E Point Velocity 38.5 cm/s Mitral A Point Velocity 84.9 cm/s Mitral E to A Ratio 0.5 PV Peak Velocity 109.0 cm/s PV Peak Gradient 4.8 mmHg LV E' Lateral Velocity 7.3 cm/s Mitral E to LV E' Lateral Ratio 5.3 LV E' Septal Velocity 5.0 cm/s Mitral E to LV E' Septal Ratio 7.7
--- NOTE | 2017-09-17 11:19 | Patient Discharge Instructions ---
Discharge Instructions General Discharge Information You were seen/treated for: Ischemic Stroke Pulmonary Embolism Elevated Troponins Hyponatremia Special Instructions: Please follow up with your PCP, neurologist, correctional counselor, vascular surgery and manager home within one week of discharge. Please have your BEP checked on your next PCP visit Please restrict your fluid intake to 1500ml/day Diet Continue normal diet: Yes Activity Full Activity/No Limits: Yes Acute Coronary Syndrome Inclusion Criteria At DC or during hospital stay patient has or had the following: ACS DIAGNOSIS No Discharge Core Measures Meds if any: Prescribed or Continued at Discharge Meds if any: NOT Prescribed or Continued at Discharge Congestive Heart Failure Inclusion Criteria At DC or during hospital stay patient has or had the following: CHF DIAGNOSIS No Discharge Core Measures Meds if any: Prescribed or Continued at Discharge Meds if any: NOT Prescribed or Continued at Discharge Cerebrovascular accident Inclusion Criteria At DC or during hospital stay patient has or had the following: CVA/TIA Diagnosis Yes Discharge Core Measures Meds if any: Prescribed or Continued at Discharge Antithrombotic Yes Statin (required if LDL =>70) Yes Anticoagulant Yes Meds if any: NOT Prescribed or Continued at Discharge Venous thromboembolism Inclusion Criteria VTE Diagnosis No VTE Type NONE VTE Confirmed by (Test) NONE Discharge Core Measures - Per Current guidelines, there needs to be overlap - treatment for the first 5 days of Warfarin therapy. - If discharged on Warfarin prior to 5 days of - overlap therapy, the patient will need to be - assessed for post discharge needs including - *Post discharge parental anticoagulation - *Warfarin and/or parental anticoagulation education - *Follow up date to check INR post discharge At least 5 days overlap therapy as Inpatient No Meds if any: Prescribed or Continued at Discharge Note: Overlap Therapy is Warfarin and Anticoagulant Meds if any: NOT Prescribed or Continued at Discharge
[2017-09-17 11:53] LABS: ABSOLUTE BASOPHIL COUNT 0.1 /CUMM (0.0-0.2); ABSOLUTE EOSINOPHIL COUNT 0 /CUMM (0.0-0.7); ABSOLUTE GRANULOCYTE CT 16.6 /CUMM (1.4-6.5); ABSOLUTE LYMPH COUNT 2.3 /CUMM (1.2-3.4); BASOPHIL % 0.3 % (0.0-2.0); EOSINOPHIL % 0.1 % (0-5); HEMATOCRIT 38.4 % (42-52); MEAN CORPUSCULAR HGB 26.1 PG (27.0-31.0); MEAN CORPUSCULAR HGB CONC 32.9 G/DL (33.0-37.0); MEAN CORPUSCULAR VOLUME 79.4 FL (80.0-94.0); MEAN PLATELET VOLUME 9.4 FL (7.4-10.4); PLATELET COUNT 201 /CUMM (130-400); RED BLOOD CELL CT 4.83 /CUMM (4.70-6.10)
[2017-09-17 12:11] LABS: PTT 96 SEC (25-37)
[2017-09-17 15:00] VITALS: BP 120/60
--- NOTE | 2017-09-17 18:07 | PN- General Surgery ---
Subjective Subjective: Spoke with Dr. Abernathy plan to proceed to the operating room on Wednesday, September 20, 2017. Surgical team to preop September. Will continue to follow peripherally until then. Please call with any other problems, questions or concerns. Objective Vital Signs and I&Os Vital Signs Date Time Temp Pulse Resp B/P B/P Pulse O2 O2 Flow FiO2 Mean Ox Delivery Rate 09/17 1500 98.0 80 20 120/60 92 09/17 0936 86 114/70 09/17 0718 98.7 82 18 114/72 95 Room Air 09/16 2224 98.9 79 18 118/78 93 Room Air 09/16 2026 76 120/76 Intake & Output 09/17 1600 09/17 0800 09/17 0000 09/16 1600 09/16 0000 Intake Total 682 529 284 550 240 300 Output Total Balance 682 529 284 550 240 300 Intake, IV 202 208 104 50 Intake, Oral 480 321 180 500 240 300 Number 5 7 4 Bowel Movements Patient 174 lb 181 lb Weight Assessment/Plan Assessment/Plan see subjective Core Measures Venous Thromboembolism VTE Risk Factors Age>40 No Mechanical VTE Prophylaxis d/t N/A MechProphylax Ordered No VTE Pharm Prophylaxis d/t NA PharmProphylax ordered Comment: Possible VTE?
[2017-09-17 20:27] LABS: PTT 91 SEC (25-37)
[2017-09-17 23:22] VITALS: BP 104/63
[2017-09-18 03:23] LABS: PTT 69 SEC (25-37)
[2017-09-18 06:38] VITALS: BP 98/62
--- NOTE | 2017-09-18 07:08 | PN- Housestaff ---
Jimbo VIDAL,Sabrina 09/18/17 0707: Subjective Follow-up For: TIA Malignancy Tele-Events Since Last Visit: NSR with HR 71-76 Subjective: Patient was seen and examined at bedside. He reports feeling well except for feeling of mild clumsiness of his left hand. Review of Systems Constitutional: Reports: no symptoms. Objective Last 24 Hrs of Vital Signs/I&O Vital Signs Date Time Temp Pulse Resp B/P B/P Pulse O2 O2 Flow FiO2 Mean Ox Delivery Rate 09/18 0638 98.3 75 22 98/62 96 Room Air 09/17 2322 98.3 81 18 104/63 94 Room Air 09/17 2115 80 120/60 09/17 1500 98.0 80 20 120/60 92 09/17 0936 86 114/70 09/17 0718 98.7 82 18 114/72 95 Room Air Intake & Output 09/18 0800 09/18 0000 09/17 1600 Intake Total 300 200 682 Output Total Balance 300 200 682 Intake, IV 202 Intake, Oral 300 200 480 Number 5 Bowel Movements Patient 178 lb Weight Physical Exam General Appearance: Alert, Oriented X3, Cooperative, No Acute Distress Skin: No Rashes, No Breakdown Skin Temp/Moisture Exam: Warm/Dry Sepsis Skin Exam (color): Normal for Ethnicity HEENT: Atraumatic Cardiovascular: Normal S1, Normal S2, No Murmurs Lungs: Normal Air Movement, diminished air entry at right lower base Abdomen: Soft, No Tenderness Neurological: Normal Speech, left pronator drift Extremities: No Edema, discoloration of right 5th toe Current Medications: Current Medications Sig/Lola Start time Last Medication Dose Route Stop Time Status Admin Acetaminophen 650 MG Q6P PRN 09/15 1330 AC PO Atorvastatin Calcium 40 MG 1700 09/15 1700 AC 09/17 PO 1627 Ergocalciferol 50,000 IU QTUES 09/17 0900 AC 09/17 PO 0936 Heparin Sodium 25,000 UNIT Q24H 09/16 1345 AC 09/17 (Porcine) IV 1239 Sodium Chloride 500 ML Loperamide HCl 2 MG Q6P PRN 09/17 0800 AC 09/17 PO 2118 Metoprolol Tartrate 12.5 MG BID 09/15 2100 AC 09/17 PO 2115 Omeprazole 20 MG DAILY AC 09/15 1321 AC 09/18 PO 0558 Tramadol HCl 50 MG TIDPRN PRN 09/15 1315 AC PO Last 24 Hrs of Lab/Cy Results Last 24 Hrs of Labs/Mics: Laboratory Tests 09/18/17 0220: APTT 69 H 09/17/17 1902: APTT 91 H 09/17/17 1045: APTT 96 H, CBC w Diff NO MAN DIFF REQ, RBC 4.83, MCV 79.4 L, MCH 26.1 L, MCHC 32.9 L, RDW 17.0 H, MPV 9.4, Gran % 83.0 H, Lymphocytes % 11.4 L, Monocytes % 5.2, Eosinophils % 0.1, Basophils % 0.3, Absolute Granulocytes 16.6 H, Absolute Lymphocytes 2.3, Absolute Monocytes 1.0 H, Absolute Eosinophils 0, Absolute Basophils 0.1 Assessment/Plan Assessment: 67 year old man with probable metastatic disease seen for evaluation of slurred speech and facial droop found to have an small acute left parietal CVA. Assessment: 1. 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 Multiple Bilateral Pulmonary Embolism 4. Metastatic disease 5. Elevated Troponins - resolved 6. Hyponatremia 7. Elevated INR 8. Elevated LFTs Plan: * Continue monitoring on telemetry floor. * His troponins have peaked. * He does not appear to have any focal neurological deficit at this time but will continue neurochecks * His echo (bubble study) - Mildly reduced left ventricular systolic function with akinesia of the posterobasal segment. * His CTA chest showed bilateral multiple pulmonary embolism * Continue AC with IV heparin. * Bilateral lower extremity venous Doppler was negative * His liver biopsy is scheduled for Saturday as he requires 72 hours off Aspirin. The IV heparin can be turned off 4 hours prior to the procedure. * Continue Atorvastatin 40 mg PO Daily * Continue metoprolol tartrate 12.5 mg p.o. 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 * Continue fluid restriction for hyponatremia but will increase it to 1L * Arterial U/S of right lower extremity showed extensive atherosclerotic disease of peripheral vessels. Vascular surgery had plans for OR on Saturday. After discussing with Dr Abernathy, patient will undergo liver biopsy on Saturday as scheduled. His angiogram/OR will be scheduled as an outpatient which he can follow up after discharge. * LFTs improving. No need to further monitor. * HbA1c is 5.5. Lipid panel wnl except for elevated TGs * Continue home meds: Vitamin D, Omeprazole, Tramadol * Diet: Heart healthy diet with 1000cc fluid restriction * DVT Prophylaxis: IV Heparin * Code: DNR. Intubation is okay Problem List: 1. TIA (transient ischemic attack) Pain Ratin Pain Location: none Pain Goal: Remain pain free Pain Plan: none Tomorrow's Labs & Rationales: CBC, BEP Chip Funez 09/18/17 0956: Attending MD Review Statement Attending Statement Attending MD Statement: examined this patient, discuss w/resident/PA/SPEED RUNNER, agreed w/resident/PA/SPEED RUNNER, discussed with family, reviewed EMR data (avail), discussed with nursing, discussed with case mgmt, reviewed images, amended to note Attending Assessment/Plan: Patient with no new complaints. Patient is on room air. He is tolerating iv heparin with no bleeding events reported. IR was called and they plan to keep him off aspirin for 3 days atleast before doing biospy. He is on statin therapy. F/u PT/OT evaluation prior to discharge. Also inform PCP Dr Richardson about admission and open MRI if needed? reschedueld. Planned vascuar angiogram as per vascualr surgery on saturday OR. Npo MN Plan of care d/sat patient and bedside. Overall prognosis remians guarded.
[2017-09-18 08:08] LABS: ABSOLUTE BASOPHIL COUNT 0 /CUMM (0.0-0.2); ABSOLUTE EOSINOPHIL COUNT 0 /CUMM (0.0-0.7); ABSOLUTE GRANULOCYTE CT 15.6 /CUMM (1.4-6.5); ABSOLUTE LYMPH COUNT 2.1 /CUMM (1.2-3.4); BASOPHIL % 0 % (0.0-2.0); EOSINOPHIL % 0.1 % (0-5); HEMATOCRIT 38.1 % (42-52); MEAN CORPUSCULAR HGB CONC 32.5 G/DL (33.0-37.0); MEAN PLATELET VOLUME 9.5 FL (7.4-10.4); PLATELET COUNT 215 /CUMM (130-400); RED BLOOD CELL CT 4.76 /CUMM (4.70-6.10); WHITE BLOOD CELL COUNT 18.8 /CUMM (4.8-10.8)
--- NOTE | 2017-09-18 09:43 | PN- Student ---
Jocy Reddy 09/18/17 0938: Subjective Subjective: Spenser states that he feels fine, he slept well and has no complaints overnight. He had no repeat episodes of diarrhea since he recieved medication. He still has minial weakness of his left hand, no change since yesterday. He denies headaches, dizziness, chest pain, palpatations, SOB, nausea, vomiting, dysuria. Objective Objective: Pt is sitting comfortably in bed, well developed well nourished male in NAD. PERRLA, CN II-XII intact, mild pronator drift in left arm, strength 5/5 bilaterally in upper extremities. Lungs clear to auscultation throughout. Normal S1, S2 no murmurs, rubs, gallops. Results Results: Vital Signs Date Time Temp Pulse Resp B/P B/P Pulse O2 O2 Flow FiO2 Mean Ox Delivery Rate 09/18 0638 98.3 75 22 98/62 96 Room Air 09/17 2322 98.3 81 18 104/63 94 Room Air 09/17 2115 80 120/60 09/17 1500 98.0 80 20 120/60 92 Intake & Output 09/18 1600 09/18 0800 09/18 0000 Intake Total 300 200 Output Total Balance 300 200 Intake, Oral 300 200 Patient 178 lb Weight Laboratory Tests 09/18/17 0615: Anion Gap 12, Estimated GFR > 60, BUN/Creatinine Ratio 22.9, CBC w Diff NO MAN DIFF REQ, RBC 4.76, MCV 80.0, MCH 26.0 L, MCHC 32.5 L, RDW 17.0 H, MPV 9.5, Gran % 83.0 H, Lymphocytes % 11.3 L, Monocytes % 5.6, Eosinophils % 0.1, Basophils % 0, Absolute Granulocytes 15.6 H, Absolute Lymphocytes 2.1, Absolute Monocytes 1.0 H, Absolute Eosinophils 0, Absolute Basophils 0 09/18/17 0220: APTT 69 H 09/17/17 1902: APTT 91 H 09/17/17 1045: APTT 96 H, CBC w Diff NO MAN DIFF REQ, RBC 4.83, MCV 79.4 L, MCH 26.1 L, MCHC 32.9 L, RDW 17.0 H, MPV 9.4, Gran % 83.0 H, Lymphocytes % 11.4 L, Monocytes % 5.2, Eosinophils % 0.1, Basophils % 0.3, Absolute Granulocytes 16.6 H, Absolute Lymphocytes 2.3, Absolute Monocytes 1.0 H, Absolute Eosinophils 0, Absolute Basophils 0.1 09/17/17 0617: Anion Gap 13, Estimated GFR > 60, BUN/Creatinine Ratio 25.7 H, Total Bilirubin 0.9, Direct Bilirubin 0.5 H, AST 204 H, ALT 98 H, Alkaline Phosphatase 501 H , Total Protein 5.5 L, Albumin 2.5 L, PT 16.7 H, INR 1.53 H 09/16/17 2238: APTT 86 H 09/16/17 1955: Troponin I 0.40 *H 09/16/17 1250: Troponin I 0.49 *H 09/16/17 0618: Anion Gap 9, Estimated GFR > 60, BUN/Creatinine Ratio 24.3, Magnesium 2.0, Total Bilirubin 1.2, Direct Bilirubin 0.7 H, AST 318 H, ALT 117 H, Alkaline Phosphatase 546 H, Troponin I 0.45 *H, Total Protein 6.0 L, Albumin 2.7 L, PT 17.9 H, INR 1.63 H, CBC w Diff NO MAN DIFF REQ, RBC 5.06, MCV 79.9 L, MCH 25.7 L, MCHC 32.1 L, RDW 17.2 H, MPV 10.0, Gran % 83.5 H, Lymphocytes % 10.5 L, Monocytes % 5.9, Eosinophils % 0.1, Basophils % 0, Absolute Granulocytes 15.9 H, Absolute Lymphocytes 2.0, Absolute Monocytes 1.1 H, Absolute Eosinophils 0, Absolute Basophils 0 09/16/17 0012: Troponin I 0.34 *H 09/15/17 1800: Troponin I 0.20 *H 09/15/17 1315: Troponin I 0.18 *H Microbiology 09/17 0201 STOOL: Clostridium difficile Toxin A & B - COMP Imaging: Head CTA 09/15 IMPRESSION: - There is a possible small acute to subacute infarct involving the left parietal lobe on image 42 of series 4 and a smaller infarct of indeterminate age within the right parietal lobe. No definite additional acute or subacute infarcts are identified. No significant mass effect and no evidence of hemorrhagic transformation. Chest CTA: IMPRESSION: 1. Multiple bilateral pulmonary emboli without evidence of right heart strain. 2. Peripheral areas of consolidation and hazy opacity in the posterior right lower lobe and lateral left lower lobe likely represent a combination of atelectasis and infarction. 3. Multiple hepatic metastases -- possibly originating from a neoplasm of the pancreatic tail. 4. Small amount of ascitic fluid is present in the visualized upper abdomen. Echogardiogram Impression: Mildly reduced overall Left ventricular systolic function with akinesia of the posterobasal segment. Mild left atrial enlargement. Mild Dilatation of Ascending Aoirta. Assessment/Plan Assessment: 67 yo male with PMHx of pulmonary/hepatic/pancreatic lesions of unknown etiology, AAA, and GERD is being managed for left facial droop, slurred speech, and left arm weakness with all symptom except left hand weakness resolved since presentation. Patient has asymptomatic hyponatremia with Na+ of 128 mg/L and CTA of chest showing bilateral pulmonary emboli with no features of right heart strain on echocardiogram. Plan: 1. Bilateral pulmonary emblolism - continue IV heparin to manage the emboli an ensure that the shunting doesn't result in right heart strain. Other anticoagulants are associated with increased risk in this case because he has history of ischemic stroke and is scheduled for a liver biposy in two days. Given these factors an anticoagulant with short half life and reversibility is the best medication for him to be on. 2. CVA - continue monitoring his neurological symptoms and consider another head CT. His weakness has not been worsening but it also hasn't completely improved 72 hrs after the inital presentation. Given this and the fact that he is being anticoagulated he must be closely monitored to make sure there are no hemorragic transformations or new insults. Also given he is being anticoagulated, head CT may be indicated to rule out any hemorrage. Although his area is ischemia was small and risk is low of transformation he may benefit from reimaging because espisodes of hemorrage can be asymptomatic. 3. Hyonatermia - continue fluid restriction until sodium returns to within normal limits. Hyonatermia is associated with complications cerebral edema and because hyponatermia is of moderate level and without symptoms, he should be managed with fluid restriction. This patient should paticularly be closely monitored because of his high urine osmolarity and history of malignancy which is pointing towards SIADH as a cause of his hyponatermia. 4. Malignancy - conduct liver biopsy and follow up outpatient. The patient is currently not on any treatments for his metastatic cancer and is also not aware of the origin of the primary tumor. By doing a liver biopsy a better understanding of the cell type, atypia, and possible genetic markers to tailor treatment can be considered. His disease is metestatic and creating many systemic problems, such as the emboli and possible SIADH so he should follow up and recieve management for his cancer. Chip Funez 09/19/17 1313: Attending MD Review Statement Attending Sign Off Attending Cosign Statement: I have: examined this patient, reviewed al EMR data, personally reviewd images, discussd w/resident/PA/CASING OPERATOR, discussed mgmt plan w/lina.
--- NOTE | 2017-09-18 12:07 | PN- Cardiology ---
Subjective Subjective: Feels well with minimal residual neurologic deficit. Objective Vital Signs and I&Os Vital Signs Date Time Temp Pulse Resp B/P B/P Pulse O2 O2 Flow FiO2 Mean Ox Delivery Rate 09/18 0956 76 122/70 09/18 0638 98.3 75 22 98/62 96 Room Air 09/17 2322 98.3 81 18 104/63 94 Room Air 09/17 2115 80 120/60 09/17 1500 98.0 80 20 120/60 92 Intake & Output 09/18 1600 09/18 0800 09/18 0000 09/17 1600 09/17 0800 09/17 0000 Intake Total 300 200 682 529 284 Output Total Balance 300 200 682 529 284 Intake, IV 202 208 104 Intake, Oral 300 200 480 321 180 Number 5 7 4 Bowel Movements Patient 178 lb 174 lb Weight Physical Exam: General: no apparent distress. Alert. Eyes: No obvious scleral icterus. HEENT: No jugular venous distention or abnormal jugular venous pulsations. Cardiovascular: Normal intensity S1/S2. Regular Respiratory: Lungs clear to auscultation bilaterally. Abdomen: Soft, nontender with no guarding or rebound tenderness. Musculoskeletal: No clubbing or cyanosis noted Skin: warm Neurologic: Normal speech Current Medications: Current Medications Sig/Lola Start time Last Medication Dose Route Stop Time Status Admin Acetaminophen 650 MG Q6P PRN 09/15 1330 AC PO Atorvastatin Calcium 40 MG 1700 09/15 1700 AC 09/17 PO 1627 Ergocalciferol 50,000 IU QTUES 09/17 0900 AC 09/17 PO 0936 Heparin Sodium 25,000 UNIT Q24H 09/16 1345 AC 09/17 (Porcine) IV 1239 Sodium Chloride 500 ML Loperamide HCl 2 MG Q6P PRN 09/17 0800 AC 09/17 PO 2118 Metoprolol Tartrate 12.5 MG BID 09/15 2100 AC 09/18 PO 0956 Omeprazole 20 MG DAILY AC 09/15 1321 AC 09/18 PO 0558 Tramadol HCl 50 MG TIDPRN PRN 09/15 1315 AC PO Results Last 48 Hrs of Labs/Mics: Laboratory Tests 09/18/17 0615: Anion Gap 12, Estimated GFR > 60, BUN/Creatinine Ratio 22.9, CBC w Diff NO MAN DIFF REQ, RBC 4.76, MCV 80.0, MCH 26.0 L, MCHC 32.5 L, RDW 17.0 H, MPV 9.5, Gran % 83.0 H, Lymphocytes % 11.3 L, Monocytes % 5.6, Eosinophils % 0.1, Basophils % 0, Absolute Granulocytes 15.6 H, Absolute Lymphocytes 2.1, Absolute Monocytes 1.0 H, Absolute Eosinophils 0, Absolute Basophils 0 09/18/17 0220: APTT 69 H 09/17/17 1902: APTT 91 H 09/17/17 1045: APTT 96 H, CBC w Diff NO MAN DIFF REQ, RBC 4.83, MCV 79.4 L, MCH 26.1 L, MCHC 32.9 L, RDW 17.0 H, MPV 9.4, Gran % 83.0 H, Lymphocytes % 11.4 L, Monocytes % 5.2, Eosinophils % 0.1, Basophils % 0.3, Absolute Granulocytes 16.6 H, Absolute Lymphocytes 2.3, Absolute Monocytes 1.0 H, Absolute Eosinophils 0, Absolute Basophils 0.1 09/17/17 0617: Anion Gap 13, Estimated GFR > 60, BUN/Creatinine Ratio 25.7 H, Total Bilirubin 0.9, Direct Bilirubin 0.5 H, AST 204 H, ALT 98 H, Alkaline Phosphatase 501 H , Total Protein 5.5 L, Albumin 2.5 L, PT 16.7 H, INR 1.53 H 09/16/17 2238: APTT 86 H 09/16/17 1955: Troponin I 0.40 *H 09/16/17 1250: Troponin I 0.49 *H Microbiology 09/17 0201 STOOL: Clostridium difficile Toxin A & B - COMP Recent Imaging Studies: Telemetry tracings were personally reviewed and shows sinus rhythm Echocardiogram Mildly reduced overall Left ventricular systolic function with akinesia of the posterobasal segment. Mild left atrial enlargement. Mild Dilatation of Ascending Aoirta. I personally reviewed the images and there was no evidence of intracardiac shunt with bubble study Ahmet Salinas M.D. (Electronically Signed) Final Date: 17 Sep 2017 10:32 Assessment/Plan Assessment/Plan 1. Acute CVA 2. Acute pulmonary embolism with mild troponin elevation/type II myocardial infarction 3. Likely metastatic malignancy 4. Peripheral vascular disease/mild aortic dilatation 5. Hyponatremia 6. Mild left ventricular dysfunction with regional wall motion abnormality consistent with probable remote MA; normal RV function with no evidence of intracardiac shunt by bubble study The patient is doing well today. No evidence of atrial fibrillation on telemetry. Echocardiogram as above showed no evidence of intracardiac shunt but does show evidence of a likely remote MA which should be managed medically for now; he may require ischemic workup in the future. Continue on statin and resume aspirin when possible. He remains on IV heparin given the pulmonary embolism. Sergei De Oliveira MD [facility] Continue telemetry? Yes
--- NOTE | 2017-09-18 14:02 | Discharge Summary ---
Visit Information Visit Dates Admission Date: 09/15/17 Discharge Date: 09/20/17 Hospital Course Course Attending Physician: Chip Funez MD Primary Care Physician: Debra VIDAL,Raymond Diallo [facility] Course: Mr Ulloa is a 67 year old gentleman with history of unknown metastatic disease, AAA, and GERD who was seen at [facility] for evaluation of slurred speech and facial droop. 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 At the time of presentation he reported that his symptoms had resolved. CTA Head/Neck performed revealed a small acute to subacute infarct involving the left parietal lobe and a smaller infarct of indeterminate age within the right parietal lobe. Neurology was consulted and the patient was deemed not a suitable candidate for tPA. He was started on an aspirin and a statin. An echo (bubble study) was performed which did not reveal any intracardiac shunt. He was monitored with daily neurochecks. His initial CTA of Neck also revealed multiple pulmonary emboli. A Chest CTA performed later revealed multiple bilateral pulmonary emboli without evidence of right heart strain. A lower extremity doppler did not reveal any DVT. After consultation with Neurology the patient was started on anticoagulation with IV heparin. The patient had an outpatient liver biopsy scheduled for a date while he was still in the hospital. It was decided to continue the patient on heparin until he had the biopsy as an inpatient. Once the biopsy was done, he was switched to oral Eliquis on discharge. He was found to have a mild troponin elevation on admission. The most likely etiology for the elevation is from his pulmonary embolism. He was initially administered aspirin but then held in anticipation for his liver biopsy. We initiated him on beta-angie therapy. Given the presence of atherosclerosis seen on scans and CVA he was maintained on statin. Patient mentioned on admission that he was scheduled to see his vascular surgeon the following day for discoloration of his right 5th toe. He was evaluated by vascular surgery during his stay. An arterial doppler showed extensive atherosclerotic disease of peripheral vessels. Given the nonemergent nature of his conditoin, it was decided that the patient will follow up with Dr Abernathy after discharge for his planned treatment. His Na was found to be low (127) and was asymptomatic. 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 He was maintained on fluid restriction and also started on NaCl tablets with some improvement in his symptoms. His LFTs and INR were found to be elevated on admission. This is likely secondary due to his metastatic liver disease. His MCV is low (79.9). Iron studies performed are highly suggestive of anemia of chronic disease. He was started on oral iron supplementation which he should continue. Allergies: Coded Allergies: No Known Allergies (09/15/17) Significant Procedures: SERVICE DATE: 09/18/17- EXAM TYPE: CAT - CT RUNOFF ANGIOGRAM FINDINGS: VASCULAR FINDINGS: Aorta and Its Branches: The suprarenal aorta appears normal without evidence of aneurysm or dissection. There is an aneurysm involving the infrarenal aorta with a maximal dimension perpendicular to a center line of 4.76 cm. There is considerable thrombus in this aneurysm which extends down to the aortic bifurcation with some minimal dilatation of the left common iliac artery with a maximum transverse dimension of 2.23 cm. The right side is of normal caliber. The celiac SMA are widely patent. The WOLF is patent as well. There are single renal arteries present bilaterally. In the left renal charlene, there is a small aneurysm present, at a proximal branch point that measures 3.25 x 4.93 mm. Both internal iliac arteries are heavily diseased. RUNOFF: Right: The common iliac artery is patent but diseased. The external iliac artery demonstrates mild disease. The common femoral artery demonstrates mild disease. There is a tight profunda femoris origin stenosis. There is abrupt occlusion of the right SFA in its proximal one third with reconstitution just above the level of the adductor canal. The vessel is diseased at the adductor canal but below this level is relatively free of disease. The popliteal artery is patent. Good three-vessel runoff is seen to the foot with the anterior tibial being the largest vessel. Left: The external iliac artery demonstrates mild disease as does the common femoral artery. The profunda femoris has a stenosis at its origin. The SFA is extremely diseased with an occluded midportion. The distal SFA reconstitutes and the popliteal is relatively free of disease. Good three-vessel runoff is noted to the foot. NONVASCULAR: Ground-glass changes and atelectasis is noted at the lung bases. These findings are new/progressed when compared with the study from May 4th. In the liver, there are innumerable masses present ranging in size from under a centimeter to possibly as large as 4.3 cm. This is worrisome for metastatic disease. Although the lesions appear larger on the current study, some of these differences may be secondary to [id number] imaging. The adrenal glands are unremarkable. The left adrenal again demonstrates symmetric hypertrophy. The kidneys are unremarkable aside from what appears to be possible progression of a small wedge-shaped renal infarct. Small amount of ascites remains around the liver. Ascitic fluid is also noted in the pelvis which was present previously. No retroperitoneal adenopathy is present. Diverticular changes are present in the colon without evidence of diverticulitis. The bladder, prostate and seminal vesicles appear normal. Bilateral inguinal hernias are present that contain only fat. Once again noted are degenerative changes in the spine and hemangiomas in L3 and T10. No bony destructive lesions are noted. The ill-defined mass in the tail of the pancreas appears unchanged. IMPRESSION: 1. On the right, there is mild inflow disease followed by tight profunda stenosis as well as a proximal occlusion of the SFA. Distal reconstitution of the distal SFA and popliteal with excellent three-vessel runoff. 2. On the left, there is a diseased occluded SFA with reconstituted distal SFA and popliteal with good three-vessel runoff. 3. 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 4. Extensive hepatic metastatic disease with some ascites. If desired, these would be easily amenable to percutaneous biopsy. 5. Possible evolving small left renal infarct. 6. Ill-defined mass tail of pancreas is unchanged. SERVICE DATE: 09/16/17- EXAM TYPE: CAT - CTA CHEST-PULMONARY EMBOLISM FINDINGS: QUALITY OF STUDY/CONTRAST BOLUS: Satisfactory. PULMONARY ARTERIES: Again noted are emboli within segmental and subsegmental branches to the anterior segment and apex of the right upper lobe. Also, embolus is present within a subsegmental branch of the posterior right upper lobe. Emboli are present within segmental and subsegmental branches of the lateral right middle lobe and within a subsegmental branch of the medial middle lobe. There are emboli within subsegmental branches of the superior segment of the right lower lobe, segmental and subsegmental branches of the posterior, medial and lateral right lower lobe. There are likely small emboli within a subsegmental branch of the apicoposterior segment of the left upper lobe and within a subsegmental branch of the superior segment left lower lobe. Also, there are scattered emboli within left lower lobe arteries. THORACIC AORTA: Mild atherosclerotic calcification of the thoracic aorta. The ascending aorta measures up to 4 cm transverse and 4 cm AP diameter. No aortic dissection. LUNGS AND PLEURA: Trachea and central bronchi are widely patent and normal in caliber. Multiple calcified granulomas of the right upper and right lower lobes. Mild centrilobular and paraseptal emphysema. A small, linear opacity in the right middle lobe is of no appreciable significance (sagittal reformatted image 80 of 92). There are very small, 0.2 cm noncalcified peripheral nodules of the left upper lobe (images 89 and 107, series 2). No convincing metastasis within either lung. The areas of peripheral consolidation and groundglass attenuation in the lateral left lower lobe and posterior right lower lobe likely represent combination of atelectasis and pulmonary infarction/hemorrhage. No pleural effusion. CARDIOVASCULAR: The heart size is normal. There is mild atherosclerotic calcification of left anterior descending coronary artery. No pericardial effusion. No inward bowing of the interventricular septum. No evidence of heart strain. MEDIASTINUM: The esophagus has normal wall thickness. The visualized portion of the thyroid gland is unremarkable. No mediastinal mass. LYMPHATICS: No pathologic sized axillary, hilar or mediastinal lymph nodes. UPPER ABDOMEN: Enlarged, heterogeneous liver. The multiple hepatic metastases are more clearly depicted on the abdominal CT images of 09/06/2017. There is heterogeneous tissue thickening of the pancreatic tail, partially included in the [id number]-pogo. No reflux of contrast into the inferior vena cava. Small amount of ascitic fluid is present within the upper abdomen. OSSEOUS STRUCTURES: Hemangiomas of T4 and T10 vertebral bodies. No aggressive osseous lesions within the thorax. IMPRESSION: 1. Multiple bilateral pulmonary emboli without evidence of right heart strain. 2. Peripheral areas of consolidation and hazy opacity in the posterior right lower lobe and lateral left lower lobe likely represent a combination of atelectasis and infarction. 3. Multiple hepatic metastases -- possibly originating from a neoplasm of the pancreatic tail. 4. Small amount of ascitic fluid is present in the visualized upper abdomen. SERVICE DATE: 09/15/17 EXAM TYPE: CARD - ECHOCARDIOGRAM FINDINGS Left Ventricle Normal size left ventricle. Mildly abnormal left ventricular ejection fraction estimated at 45-50%. Akinetic posterior wall. Right Ventricle Normal right ventricular size and function. Right Atrium Normal right atrial size. Left Atrium Mild left atrial dilatation. . Mitral Valve Mild mitral annular calcification. Epty-xh-tbulzkpe mitral regurgitation. Aortic Valve Diffuse thickening (sclerosis) of the aortic valve cusps without reduced excursion. [id number]-[id number] aortic regurgitation. Tricuspid Valve Tricuspid valve is normal in structure and function. Mild tricuspid regurgitation. Pulmonic Valve Pulmonic valve not well visualized, grossly normal. Pericardium No pericardial effusion. Great Vessels Mildly dilated proximal ascending aorta (tube). CONCLUSIONS Mildly reduced overall Left ventricular systolic function with akinesia of the posterobasal segment. Mild left atrial enlargement. Mild Dilatation of Ascending Aorta. SERVICE DATE: 09/15/17 EXAM TYPE: CAT - CT HEAD ANGIOGRAM; CT NECK ANGIOGRAM. FINDINGS: BRAIN: There is a possible small acute to subacute infarct involving the left parietal lobe on image 42 of series 4 and a smaller infarct of indeterminate age within the right parietal lobe. No definite additional acute or subacute infarcts are identified. There is no intracranial hemorrhage, hydrocephalus, extra-axial surface collection, midline shift, or other herniation pattern. The basilar cisterns are preserved. No significant soft tissue abnormality. No acute osseous abnormality. The paranasal sinuses and the mastoid air cells are well-aerated. CERVICAL SOFT TISSUES AND LUNG APICES: There is a partially imaged pulmonary embolus within an anterior segmental pulmonary arterial branch of the right upper lobe on image 39 of series 2. Smaller pulmonary embolus within a right apical segmental pulmonary arterial branch. No significant soft tissue findings within the neck. Imaged upper lungs are clear. Cervical spondylosis. At T4 there is a probable vertebral body hemangioma with mild superior endplate height loss that is unchanged. NECK CTA: There is a classic 3 vessel configuration of the aortic arch. Proximal arch vessels are non-stenotic. The vertebral arteries are codominant. No significant ostial stenosis is visualized on either side. Both vertebral arteries are widely patent throughout their extracranial cervical course. Atherosclerotic disease of the carotid bifurcations bilaterally resulting in less than 50% stenoses by NASCET criteria. BRAIN CTA: Atherosclerotic disease throughout the carotid siphons bilaterally with a moderate stenosis of the ascending left cavernous ICA segment and no additional intracranial internal carotid artery stenoses. No focal flow-limiting stenosis, discrete proximal large artery occlusion, or saccular intradural aneurysm is identified. Timing of the contrast bolus allows assessment of the major dural venous sinuses, which all opacify normally. IMPRESSION: - There is a possible small acute to subacute infarct involving the left parietal lobe on image 42 of series 4 and a smaller infarct of indeterminate age within the right parietal lobe. No definite additional acute or subacute infarcts are identified. No significant mass effect and no evidence of hemorrhagic transformation. - There is a partially imaged pulmonary embolus within an anterior segmental pulmonary arterial branch of the right upper lobe on image 39 of series 2. Smaller pulmonary embolus within a right apical segmental pulmonary arterial branch. A CTA of the chest would be helpful in assessing for the true degree of pulmonary embolus burden. - Atherosclerotic disease throughout the carotid siphons bilaterally with a moderate stenosis of the ascending left cavernous ICA segment. No acute arterial occlusions within the head or neck. No significant arterial stenoses within the neck. SERVICE DATE: 09/15/17 EXAM TYPE: RAD - XRY-PORTABLE CHEST XRAY FINDINGS: The heart, great vessels, pulmonary vasculature mediastinum are normal. There is stable mild scar/atelectasis at the lateral left base. No infiltrate, effusion or pneumothorax is seen. There is no acute osseous abnormality. IMPRESSION: There is stable mild lateral left base scar/subsegmental atelectasis. No new focal infiltrate, effusion or pneumothorax is seen. SERVICE DATE: 09/15/17 EXAM TYPE: CAT - CT HEAD WO IV CONTRAST FINDINGS: There are no pathologic extra-axial fluid collections. The lateral, third, fourth ventricles are nondilated and concordant with the appearance of the sulci. There is no evidence for acute intraparenchymal hemorrhage or infarct. There is neither mass nor mass effect. There is no shift of midline structures. The paranasal sinuses and mastoid air cells are clear. There are no osseous lesions. IMPRESSION: No evidence for acute intracranial injury. SERVICE DATE: 09/15/17- EXAM TYPE: US - US-EXT BILAT VENOUS DOPPLER FINDINGS: The common femoral vein is compressible and exhibits a normal phasic waveform, bilaterally; this suggests that the iliac veins are widely patent above. Within each proximal thigh, the visualized profunda femoris vein is patent. The visualized greater saphenous veins and saphenofemoral junctions are normal. Superficial femoral vein is patent in the proximal, mid and distal aspect of each thigh. Popliteal vein appears normal to the level of the trifurcation, bilaterally, and the visualized calf veins are unremarkable. No evidence of Stewart's cyst. IMPRESSION: No evidence of deep vein thrombosis in either lower extremity. SERVICE DATE: 09/15/17- EXAM TYPE: RAD - XRY-FOOT TWO VIEWS RIGHT FINDINGS: Bony alignment and mineralization are normal. No fracture or dislocation is seen. There is no right ankle joint effusion. Boehler's angle is normal. There is no calcaneal spur. No soft tissue gas or foreign body is seen. IMPRESSION: Normal right foot. SERVICE DATE: 09/15/17- EXAM TYPE: US - US-DUPLEX SCAN LOWER EXT ARTER FINDINGS: Common femoral artery - peak systolic velocity of 79 cm/sec; high amplitude, monophasic waveform; atherosclerotic calcification of the vessel without occlusion or focal high-grade stenosis. Proximal profunda femoris artery - peak systolic velocity of 72 cm/sec; biphasic waveform. SFA, proximal - peak systolic velocity of 26 cm/sec; monophasic waveform. Irregular atherosclerotic plaque within the proximal vessel produces moderate stenosis. SFA, mid - peak systolic velocity of 54 cm/sec; high amplitude, monophasic flow pattern. SFA, distal - peak systolic velocity of 43 cm/sec; monophasic flow. Popliteal - peak systolic velocity of 40 cm/sec, proximally and 52 cm/sec, distally; flow is monophasic (i.e. no flow reversal below baseline); irregular atherosclerotic plaque of the vessel without focal high-grade stenosis or occlusion. Leg vessels - the visualized anterior and posterior tibial arteries, which exhibit relatively weak monophasic flow, exhibit peak systolic velocities of 29 cm/sec and 39 cm/sec, respectively. Dorsalis pedis artery, which has monophasic flow, has peak systolic velocity of 40 cm/sec. IMPRESSION: There is extensive atherosclerotic disease of peripheral vessels. The abnormal waveform of the common femoral artery indicates presence of significant disease in more proximal (i.e., iliac) vessels. Atherosclerotic plaque produces moderate, irregular stenosis in the proximal SFA. The visualized femoral, popliteal and leg vessels are patent but have abnormal waveforms due to the hemodynamically significant disease. For a more complete anatomic assessment of the peripheral vessels, CT angiography-runoff examination could be performed. To further evaluate the severity of peripheral vascular disease, NOLBERTO measurements and pulse volume recordings may be obtained at a dedicated vascular lab. 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 Medications at Discharge Discharge Medications: Continue taking these medications: Tramadol HCl (Ultram) 50 MG TABLET 1 Tablet ORAL THREE TIMES A DAY NEEDED Comments: NOT GIVEN WHILE IN HOSPITAL Ergocalciferol (Vitamin D2) (Vitamin D2) 50,000 UNIT CAPSULE 1 Capsule ORAL EVERY SATURDAY Comments: Last Taken:09/17/17 Time: 9:30 AM Aspirin (Ecotrin*) 81 MG TABLET.DR 1 Tablet ORAL DAILY Comments: NOT GIVEN WHILE IN HOSPITAL Omeprazole (Omeprazole) 20 MG CAPSULE.DR 1 Capsule ORAL DAILY Comments: Last Taken:09/20/17 Time: 6:45 AM Start taking the following new medications: Sodium Chloride (Sodium Chloride) 1 GRAM TABLET 2,000 Milligram ORAL THREE TIMES DAILY Qty = 180 No Refills Comments: Last Taken:09/20/17 Time: 2:30 PM Metoprolol Tartrate (Metoprolol Tartrate) 25 MG TABLET 1 Tablet ORAL TWICE DAILY Qty = 60 No Refills Comments: Last Taken:09/20/17 Time: 8:15 AM Atorvastatin Calcium (Atorvastatin Calcium) 40 MG TABLET 1 Tablet ORAL DAILY Qty = 30 No Refills Comments: Last Taken:09/19/17 Time: 4:45 PM Apixaban (Eliquis) 5 MG TABLET 1 Tablet ORAL TWICE DAILY Qty = 60 No Refills Ferrous Sulfate (Ferrous Sulfate) 325 MG (65 MG IRON) TABLET 1 Tablet ORAL DAILY Qty = 30 No Refills Comments: Last Taken:09/20/17 Time: 8:15 AM Copies To: Raymond Richardson MD
[2017-09-18 14:39] VITALS: BP 100/60
[2017-09-18 15:29] LABS: PTT 87 SEC (25-37)
--- NOTE | 2017-09-18 16:56 | PN- Vascular Surgery ---
Surgical Brief Attending Note Brief Attending Note: VASCULAR ATTENDING NOTE: Pt. seen and examined. Patient admitted over the weekend with multiple medical problems and recent history of possible stroke in addition to right leg and foot pain. Patient was noted that time to have signs of progressive PA the first embolization. He was medically and started on heparin. Patient denies significant worsening of symptoms today. He states overall he has improved. Physical exam reveals lower extremities are perfused. He has no palpable pedal pulses on the right. He does have some discoloration on the lateral plantar portion of his right foot. He also has a right bluish discoloration to his fifth toe. Assessment/Plan: This is a 67-year-old male with right lower extremity PAD/ ischemia of the right fifth digit and foot. Awaiting final CT results for preoperative planning. Continue medical care and anticoagulation.
[2017-09-18 22:34] VITALS: BP 122/78
[2017-09-19 02:21] LABS: PTT 85 SEC (25-37)
[2017-09-19 06:42] VITALS: BP 110/80
--- NOTE | 2017-09-19 07:12 | PN- Housestaff ---
Jimbo VIDAL,[facility] 09/19/17 0712: Subjective Follow-up For: TIA Malignancy PE Tele-Events Since Last Visit: NSR with HR 73-84. No overnight events. Subjective: Patient was seen and examined at bedside. He reports feeling well. Is eager to have his procedure and go home. Has no complaints at this time. Review of Systems Constitutional: Reports: no symptoms. Objective Last 24 Hrs of Vital Signs/I&O Vital Signs Date Time Temp Pulse Resp B/P B/P Pulse O2 O2 Flow FiO2 Mean Ox Delivery Rate 09/19 0642 98.5 85 20 110/80 96 Room Air 09/18 2234 98.3 81 18 122/78 96 Room Air 09/18 1439 98.3 73 20 100/60 94 Room Air 09/18 0956 76 122/70 Intake & Output 09/19 0800 09/19 0000 09/18 1600 Intake Total 390 530 452 Output Total Balance 390 530 452 Intake, IV 140 152 Intake, Oral 250 530 300 Number 2 4 Bowel Movements Patient 180 lb Weight Weight Bed scale Measurement Method Physical Exam General Appearance: Alert, Oriented X3, Cooperative, No Acute Distress Skin: No Rashes, No Breakdown Skin Temp/Moisture Exam: Warm/Dry Sepsis Skin Exam (color): Normal for Ethnicity HEENT: Atraumatic Cardiovascular: Normal S1, Normal S2, No Murmurs Lungs: Clear to Auscultation, Normal Air Movement Abdomen: No Tenderness, distended Neurological: Normal Speech, Strength at 5/5 X4 Ext, Sensation Intact, Cranial Nerves 3-12 NL, left upper extremity pronator drift Extremities: No Edema, discoloration of right 5th toe Last 24 Hrs of Lab/Cy Results Last 24 Hrs of Labs/Mics: Laboratory Tests 09/19/17 0910: Anion Gap 13, Estimated GFR > 60, BUN/Creatinine Ratio 22.9, CBC w Diff Pending, WBC Pending, RBC Pending, Hgb Pending, Hct Pending, MCV Pending, MCH Pending, MCHC Pending, RDW Pending, Plt Count Pending, MPV Pending, Gran % Pending, Lymphocytes % Pending, Monocytes % Pending, Eosinophils % Pending, Basophils % Pending, Absolute Granulocytes Pending, Absolute Lymphocytes Pending, Absolute Monocytes Pending, Absolute Eosinophils Pending, Absolute Basophils Pending 09/19/17 0150: APTT 85 H 09/18/17 1410: APTT 87 H Assessment/Plan Assessment: 67 year old man with probable metastatic disease seen for evaluation of slurred speech and facial droop found to have an small acute left parietal CVA. Assessment: 1. 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 Multiple Bilateral Pulmonary Embolism 4. Metastatic disease 5. Elevated Troponins - resolved 6. Hyponatremia 7. Elevated INR 8. Elevated LFTs 9. Microcytic Anemia Plan: * Continue monitoring on telemetry floor. * He is stable from a cardiac standpoint. * Will increase his metoprolol to 25mg BID. * He does not appear to have any focal neurological deficit at this time but will continue neurochecks * His echo (bubble study) - Mildly reduced left ventricular systolic function with akinesia of the posterobasal segment. No intracardiac shunt. * Continue AC with IV heparin for bilateral multiple pulmonary embolism * Bilateral lower extremity venous Doppler was negative * His liver biopsy is scheduled for Saturday. The IV heparin can be turned off 4 hours prior to the procedure. * Continue Atorvastatin 40 mg PO Daily * His hyponatremia could be due to a combination of stroke and SIADH from underlying malignancy. * Continue fluid restriction for hyponatremia. Will consider adding salt tablets. * Arterial U/S of right lower extremity showed extensive atherosclerotic disease of peripheral vessels. Vascular surgery had plans for OR on Saturday. After discussing with Dr Abernathy, patient will undergo liver biopsy on Saturday as scheduled. His angiogram/OR will be scheduled as an outpatient which he can follow up after discharge. * Elevated LFTs on admission, but were improving. No need to further monitor. Likely secondary to his liver mets. * Follow iron studies - pending. * HbA1c is 5.5. Lipid panel wnl except for elevated TGs * Continue home meds: Vitamin D, Omeprazole, Tramadol * Diet: Regular diet with 1200cc fluid restriction * DVT Prophylaxis: IV Heparin * Code: DNR. Intubation is okay Problem List: 1. TIA (transient ischemic attack) Pain Ratin Pain Location: none Pain Goal: Remain pain free Pain Plan: none Tomorrow's Labs & Rationales: CBC, BEP, INR Chip Funez 09/19/17 1005: Attending MD Review Statement Attending Statement Attending MD Statement: examined this patient, discuss w/resident/PA/FACILITIES SPECIALIST, agreed w/resident/PA/FACILITIES SPECIALIST, discussed with family, reviewed EMR data (avail), discussed with nursing, discussed with case mgmt, reviewed images, amended to note Attending Assessment/Plan: No overnight complaints. Patient tolerating anticoagulation well. Patient for planned IR guided biospy from liver mets. Patient is on room air with no new focal deficits. Discussed plan of care with /patient. Cardiology following. CTA results noted. F/u vascular surgery for follow up. Switch to NOAC at discharge.
--- NOTE | 2017-09-19 09:33 | PN- Cardiology ---
Subjective Subjective: Patient stable. Telemetry sinus with PACs. Objective Vital Signs and I&Os Vital Signs Date Time Temp Pulse Resp B/P B/P Pulse O2 O2 Flow FiO2 Mean Ox Delivery Rate 09/19 0642 98.5 85 20 110/80 96 Room Air 09/18 2234 98.3 81 18 122/78 96 Room Air 09/18 1439 98.3 73 20 100/60 94 Room Air 09/18 0956 76 122/70 Intake & Output 09/19 1600 09/19 0800 09/19 0000 09/18 1600 09/18 0800 09/18 0000 Intake Total 150 390 530 452 300 200 Output Total Balance 150 390 530 452 300 200 Intake, IV 140 152 Intake, Oral 150 250 530 300 300 200 Number 1 2 4 Bowel Movements Patient 180 lb 178 lb Weight Weight Bed scale Measurement Method Physical Exam: On general exam patient appeared comfortable. Head normocephalic atraumatic Eyes sclera anicteric conjunctiva showed no pallor extraocular muscles were normal Neck no jugular venous distention no thyroid masses no palpable nodes Chest lungs were fairly clear bilaterally Heart regular rhythm with a 102 2/6 systolic murmur Methow abdomen soft no organomegaly bowel sounds normal Extremities no clubbing cyanosis or edema Neurological patient speech is intact no gross motor deficit Current Medications: Current Medications Sig/Lola Start time Last Medication Dose Route Stop Time Status Admin Acetaminophen 650 MG Q6P PRN 09/15 1330 AC PO Atorvastatin Calcium 40 MG 1700 09/15 1700 AC 09/18 PO 1701 Ergocalciferol 50,000 IU QTUES 09/17 0900 AC 09/17 PO 0936 Heparin Sodium 25,000 UNIT Q24H 09/16 1345 AC 09/18 (Porcine) IV 2000 Sodium Chloride 500 ML Loperamide HCl 2 MG .STK-MED ONE 09/18 2021 DC PO 09/18 2022 Loperamide HCl 2 MG Q6P PRN 09/17 0800 AC 09/19 PO 0156 Metoprolol Tartrate 12.5 MG BID 09/15 2100 AC 09/18 PO 202 Omeprazole 20 MG DAILY AC 09/15 1321 AC 09/19 PO 0632 Tramadol HCl 50 MG TIDPRN PRN 09/15 1315 AC PO Results Last 48 Hrs of Labs/Mics: Laboratory Tests 09/19/17 0910: Sodium Pending, Potassium Pending, Chloride Pending, Carbon Dioxide Pending, Anion Gap Pending, BUN Pending, Creatinine Pending, BUN/Creatinine Ratio Pending , CBC w Diff Pending, WBC Pending, RBC Pending, Hgb Pending, Hct Pending, MCV Pending, MCH Pending, MCHC Pending, RDW Pending, Plt Count Pending, MPV Pending 09/19/17 0150: APTT 85 H 09/18/17 1410: APTT 87 H 09/18/17 0615: Anion Gap 12, Estimated GFR > 60, BUN/Creatinine Ratio 22.9, CBC w Diff NO MAN DIFF REQ, RBC 4.76, MCV 80.0, MCH 26.0 L, MCHC 32.5 L, RDW 17.0 H, MPV 9.5, Gran % 83.0 H, Lymphocytes % 11.3 L, Monocytes % 5.6, Eosinophils % 0.1, Basophils % 0, Absolute Granulocytes 15.6 H, Absolute Lymphocytes 2.1, Absolute Monocytes 1.0 H, Absolute Eosinophils 0, Absolute Basophils 0 09/18/17 0220: APTT 69 H 09/17/17 1902: APTT 91 H 09/17/17 1045: APTT 96 H, CBC w Diff NO MAN DIFF REQ, RBC 4.83, MCV 79.4 L, MCH 26.1 L, MCHC 32.9 L, RDW 17.0 H, MPV 9.4, Gran % 83.0 H, Lymphocytes % 11.4 L, Monocytes % 5.2, Eosinophils % 0.1, Basophils % 0.3, Absolute Granulocytes 16.6 H, Absolute Lymphocytes 2.3, Absolute Monocytes 1.0 H, Absolute Eosinophils 0, Absolute Basophils 0.1 Assessment/Plan Assessment/Plan In summary this is a 67-year-old gentleman has a following problems 1. Acute CVA 2. Acute pulmonary embolism with mild troponin elevation/type II myocardial infarction 3. 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 Peripheral vascular disease/mild aortic dilatation 5. Hyponatremia 6. Mild left ventricular dysfunction with regional wall motion abnormality consistent with probable remote [place]; normal RV function with no evidence of intracardiac shunt by bubble study Patient going for biopsy in a.m. Is on anticoagulation with heparin. I would increase his metoprolol tartrate to 25 mg twice a day. Continue telemetry? Yes
--- NOTE | 2017-09-19 09:43 | CT SCAN REPORT ---
EXAMINATION: CT ANGIOGRAPHY ABDOMEN AND PELVIS WITH BILATERAL LOWER EXTREMITY RUNOFF CLINICAL INFORMATION: Foot ischemia. COMPARISON: CT chest, abdomen and pelvis dated 09/06/2017. TECHNIQUE: Volume acquisition CT was performed of the abdomen, pelvis and bilateral lower extremities both with and without IV contrast. For the IV contrast-enhanced portion of the exam a total of 115 mL Optiray 350 was injected. Images were evaluated on an independent dedicated 3-D workstation and 3-D images were reconstructed with concurrent radiologist supervision and subsequently interpreted. DLP: 1036.30\H\ \N\mGy-cm FINDINGS: VASCULAR FINDINGS: Aorta and Its Branches: The suprarenal aorta appears normal without evidence of aneurysm or dissection. There is an aneurysm involving the infrarenal aorta with a maximal dimension perpendicular to a center line of 4.76 cm. There is considerable thrombus in this aneurysm which extends down to the aortic bifurcation with some minimal dilatation of the left common iliac artery with a maximum transverse dimension of 2.23 cm. The right side is of normal caliber. The celiac SMA are widely patent. The WOLF is patent as well. There are single renal arteries present bilaterally. In the left renal charlene, there is a small aneurysm present, at a proximal branch point that measures 3.25 x 4.93 mm. Both internal iliac arteries are heavily diseased. RUNOFF: Right: The common iliac artery is patent but diseased. The external iliac artery demonstrates mild disease. The common femoral artery demonstrates mild disease. There is a tight profunda femoris origin stenosis. There is abrupt occlusion of the right SFA in its proximal one third with reconstitution just above the level of the adductor canal. The vessel is diseased at the adductor canal but below this level is relatively free of disease. The popliteal artery is patent. Good three-vessel runoff is seen to the foot with the anterior tibial being the largest vessel. Left: The external iliac artery demonstrates mild disease as does the common femoral artery. The profunda femoris has a stenosis at its origin. The SFA is extremely diseased with an occluded midportion. The distal SFA reconstitutes and the popliteal is relatively free of disease. Good three-vessel runoff is noted to the foot. NONVASCULAR: Ground-glass changes and atelectasis is noted at the lung bases. These findings are new/progressed when compared with the study from September 06. In the liver, there are innumerable masses present ranging in size from under a centimeter to possibly as large as 4.3 cm. This is worrisome for metastatic disease. Although the lesions appear larger on the current study, some of these differences may be secondary to [id number] imaging. The adrenal glands are unremarkable. The left adrenal again demonstrates symmetric hypertrophy. The kidneys are unremarkable aside from what appears to be possible progression of a small wedge-shaped renal infarct. Small amount of ascites remains around the liver. Ascitic fluid is also noted in the pelvis which was present previously. No retroperitoneal adenopathy is present. Diverticular changes are present in the colon without evidence of diverticulitis. The bladder, prostate and seminal vesicles appear normal. Bilateral inguinal hernias are present that contain only fat. Once again noted are degenerative changes in the spine and hemangiomas in L3 and T10. No bony destructive lesions are noted. The ill-defined mass in the tail of the pancreas appears unchanged. IMPRESSION: 1. On the right, there is mild inflow disease followed by tight profunda stenosis as well as a proximal occlusion of the SFA. Distal reconstitution of the distal SFA and popliteal with excellent three-vessel runoff. 2. On the left, there is a diseased occluded SFA with reconstituted distal SFA and popliteal with good three-vessel runoff. 3. 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 4. Extensive hepatic metastatic disease with some ascites. If desired, these would be easily amenable to percutaneous biopsy. 5. Possible evolving small left renal infarct. 6. Ill-defined mass tail of pancreas is unchanged.
[2017-09-19 10:05] LABS: ABSOLUTE BASOPHIL COUNT 0.1 /CUMM (0.0-0.2); ABSOLUTE EOSINOPHIL COUNT 0 /CUMM (0.0-0.7); ABSOLUTE GRANULOCYTE CT 18.8 /CUMM (1.4-6.5); ABSOLUTE LYMPH COUNT 2.1 /CUMM (1.2-3.4); ABSOLUTE MONOCYTE COUNT 1.3 /CUMM (0.10-0.60); BASOPHIL % 0.3 % (0.0-2.0); EOSINOPHIL % 0.1 % (0-5); HEMATOCRIT 40.8 % (42-52); MEAN CORPUSCULAR HGB 26.2 PG (27.0-31.0); MEAN CORPUSCULAR HGB CONC 32.9 G/DL (33.0-37.0); MEAN CORPUSCULAR VOLUME 79.8 FL (80.0-94.0); MEAN PLATELET VOLUME 8.8 FL (7.4-10.4); PLATELET COUNT 227 /CUMM (130-400); RED BLOOD CELL CT 5.11 /CUMM (4.70-6.10); WHITE BLOOD CELL COUNT 22.2 /CUMM (4.8-10.8)
[2017-09-19 11:09] LABS: GRANULOCYTE % 84.4 % (42.2-75.2)
[2017-09-19 14:19] VITALS: BP 110/80
[2017-09-19 15:18] LABS: PTT 97 SEC (25-37)
[2017-09-19 22:11] VITALS: BP 120/84
[2017-09-19 23:03] LABS: PT 16.5 SEC (9.4-12.5)
[2017-09-19 23:05] LABS: PTT 81 SEC (25-37)
[2017-09-20 06:00] VITALS: BP 112/66
--- NOTE | 2017-09-20 07:10 | PN- Housestaff ---
Jimbo VIDAL,[facility] 09/20/17 0710: Subjective Follow-up For: TIA Malignancy PE Leukocytosis Tele-Events Since Last Visit: NSR with HR 77-84. No overnight events. Subjective: Patient states feeling well. Has no complaints. Looks forward to going home. Review of Systems Constitutional: Reports: no symptoms. Objective Last 24 Hrs of Vital Signs/I&O Vital Signs Date Time Temp Pulse Resp B/P B/P Pulse O2 O2 Flow FiO2 Mean Ox Delivery Rate 09/20 0600 97.9 75 20 112/66 97 09/19 2211 98.6 84 24 120/84 95 09/19 2123 88 124/72 09/19 1419 98.2 80 20 110/80 97 Room Air 09/19 0932 84 110/70 Intake & Output 09/20 0800 09/20 0000 09/19 1600 Intake Total 350 786.8 Output Total Balance 350 786.8 Intake, IV 150 156.8 Intake, Oral 200 630 Number 0 1 Bowel Movements Patient 181 lb 180 lb Weight Physical Exam General Appearance: Alert, Oriented X3, Cooperative, No Acute Distress Skin: No Rashes, No Breakdown Skin Temp/Moisture Exam: Warm/Dry Sepsis Skin Exam (color): Normal for Ethnicity HEENT: Atraumatic Cardiovascular: Normal S1, Normal S2, No Murmurs Lungs: Normal Air Movement, decreased air entry at right lower base Abdomen: Soft, No Tenderness Neurological: Normal Speech, Strength at 5/5 X4 Ext, Normal Tone, Sensation Intact, Cranial Nerves 3-12 NL, slight left arm pronator drift Extremities: No Edema, right 5th toe discolouration Last 24 Hrs of Lab/Cy Results Last 24 Hrs of Labs/Mics: Laboratory Tests 09/20/17 0702: Sodium Pending, Potassium Pending, Chloride Pending, Carbon Dioxide Pending, Anion Gap Pending, BUN Pending, Creatinine Pending, BUN/Creatinine Ratio Pending , PT Pending, INR Pending, APTT Pending, CBC w Diff Pending, WBC Pending, RBC Pending, Hgb Pending, Hct Pending, MCV Pending, MCH Pending, MCHC Pending, RDW Pending, Plt Count Pending, MPV Pending, Hepatitis C Antibody Pending 09/19/17 2200: PT 16.5 H, INR 1.51 H 09/19/17 2200: APTT 81 H 09/19/17 1408: APTT 97 H 09/19/17 0910: Anion Gap 13, Estimated GFR > 60, BUN/Creatinine Ratio 22.9, Magnesium 2.0, Iron 36 L, TIBC 276, % Saturation 13 L, Ferritin 963.0 H, CBC w Diff NO MAN DIFF REQ, RBC 5.11, MCV 79.8 L, MCH 26.2 L, MCHC 32.9 L, RDW 18.0 H, MPV 8.8, Gran % 84.4 H, Lymphocytes % 9.4 L, Monocytes % 5.8, Eosinophils % 0.1, Basophils % 0.3, Absolute Granulocytes 18.8 H, Absolute Lymphocytes 2.1, Absolute Monocytes 1.3 H, Absolute Eosinophils 0, Absolute Basophils 0.1 Assessment/Plan Assessment: 67 year old man with probable metastatic disease seen for evaluation of slurred speech and facial droop found to have an small acute left parietal CVA. Assessment: 1. 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 Multiple Bilateral Pulmonary Embolism 4. Metastatic disease 5. Elevated Troponins - resolved 6. Hyponatremia 7. Elevated INR 8. Elevated LFTs 9. Microcytic Anemia Plan: * Continue monitoring on telemetry floor. * He is stable from a cardiac standpoint. * Continue metoprolol to 25mg BID. * His echo (bubble study) - Mildly reduced left ventricular systolic function with akinesia of the posterobasal segment. No intracardiac shunt. * IV heparin currently on hold for biopsy. Can likely be started on NOAC after the procedure. * Bilateral lower extremity venous Doppler was negative * Continue Atorvastatin 40 mg PO Daily * His hyponatremia could be due to a combination of stroke and SIADH from underlying malignancy. * Continue fluid restriction for hyponatremia. * Start NaCl tablets 2g TID. * Arterial U/S of right lower extremity showed extensive atherosclerotic disease of peripheral vessels. Vascular surgery had plans for OR on Saturday. After discussing with Dr Abernathy, patient will undergo liver biopsy today as scheduled. His angiogram/OR will be scheduled as an outpatient which he can follow up after discharge. * Elevated LFTs on admission, but were improving. No need to further monitor. Likely secondary to his liver mets. * Iron studies suggestive of Anemia of chronic disease. * Start supplementation with oral ferrous sulphate. * HbA1c is 5.5. Lipid panel wnl except for elevated TGs * Continue home meds: Vitamin D, Omeprazole, Tramadol * Diet: Regular diet with 1200cc fluid restriction * DVT Prophylaxis: IV heparin vs NOAC * Code: DNR. Intubation is okay Problem List: 1. Hyponatremia Pain Ratin Pain Location: none Pain Goal: Remain pain free Pain Plan: none Tomorrow's Labs & Rationales: cbc, bep Chip Funez 09/20/17 1057: Attending MD Review Statement Attending Statement Attending MD Statement: examined this patient, discuss w/resident/PA/ABRASIVE WHEEL MOLDER, agreed w/resident/PA/ABRASIVE WHEEL MOLDER, discussed with family, reviewed EMR data (avail), discussed with nursing, discussed with case mgmt, reviewed images, amended to note Attending Assessment/Plan: Patient denies any new complaints. He is going for biopsy this am. iv heparin on hold Multiple bilateral PE switch to eliquis at discharge. elevated lfts liver metastasis with pancreatic tail mass. Follow up results as outpatient with GI Dr Donato. Acute CVA small parietal. c/w anticoagualation. peripheral vascualr disease : follow vascualr surgery as o/p and plan for OR. hyponatremia asymptomatic , add salt tabs to fluid restriction. h/o remote [place] c/w asa/statin at discharge. gi/dvt prophyalxis FOLLOW UP PCP in [address] Richardson Cardiology in 2-3 weeks Vascular surgery as scheduled Gastroenterology Dr Donato in 2 weeks.
[2017-09-20 08:14] LABS: ABSOLUTE BASOPHIL COUNT 0 /CUMM (0.0-0.2); ABSOLUTE EOSINOPHIL COUNT 0 /CUMM (0.0-0.7); ABSOLUTE GRANULOCYTE CT 16.9 /CUMM (1.4-6.5); ABSOLUTE LYMPH COUNT 1.9 /CUMM (1.2-3.4); BASOPHIL % 0.1 % (0.0-2.0); EOSINOPHIL % 0.1 % (0-5); HEMATOCRIT 39.1 % (42-52); MEAN CORPUSCULAR HGB 26.2 PG (27.0-31.0); MEAN CORPUSCULAR HGB CONC 32.7 G/DL (33.0-37.0); MEAN CORPUSCULAR VOLUME 79.9 FL (80.0-94.0); MEAN PLATELET VOLUME 9.1 FL (7.4-10.4); PLATELET COUNT 218 /CUMM (130-400); RBC DISTRIBUTION WIDTH 17.9 % (11.5-14.5); WHITE BLOOD CELL COUNT 19.9 /CUMM (4.8-10.8)
[2017-09-20 08:17] LABS: PT 15.1 SEC (9.4-12.5); PTT 54 SEC (25-37)
[2017-09-20 09:34] LABS: GRANULOCYTE % 85.2 % (42.2-75.2)
[2017-09-20] MEDS ORDERED: FERROUS SULFAT325 M3 PO ×2 (09:55→14:41)
[2017-09-20] MEDS ORDERED: METOPROLOL TART25 M1 PO ×2 (09:55→14:41)
[2017-09-20] MEDS ORDERED: SODIUM CHLORIDE1 G2 PO ×2 (11:51→14:41)
[2017-09-20] MEDS ORDERED: ELIQUIS5 M1 PO ×2 (14:07→14:41)
[2017-09-20] MEDS ORDERED: ATORVASTATIN CA40 M1 PO ×2 (14:11→14:41)
[2017-09-20 14:23] VITALS: BP 114/70
--- NOTE | 2017-09-20 15:07 | ULTRASOUND REPORT ---
EXAMINATION: Ultrasound-guided liver biopsy CLINICAL INFORMATION: Elevated LFTs. Numerous hepatic lesions identified on cross-sectional imaging. COMPARISON: Several recent cross-sectional studies, the most recent a CT abdomen/pelvis with runoff 09/18/2017 INTERVENTIONAL RADIOLOGIST: Jeffrey Dailey M.D. MEDICATION: -1% lidocaine utilized for local anesthetic. -50 mcg of fentanyl was administered intravenously by dedicated radiology nurse under my direct supervision. TECHNIQUE/FINDINGS: Informed consent was obtained from the patient prior to the procedure. During this process, the procedure and potential alternatives were explained, along with the intended outcome and benefits. The risks of the procedure, as well as the risk of not doing the procedure, were discussed. The patient was given the opportunity to ask questions regarding the procedure and appeared competent to make medical decisions. A signed consent form which documents this discussion was placed in the medical record. A time out procedure was performed. Sonographic evaluation of the liver demonstrates innumerable lesions throughout the right and left hepatic lobes. A suitable percutaneous window for biopsy of a left hepatic lesion was identified. There appears to be normal tissue superficial to this lesion. The skin of the upper abdomen was sterilely prepped and draped. 1% lidocaine was administered for local anesthesia. Under continuous sonographic guidance, a 17-gauge guiding needle was advanced into the hepatic parenchyma. Two 18-gauge cores were sequentially obtained and sent to pathology. The needle stayed within the liver parenchyma throughout the entire procedure. Gelfoam was injected into the needle as it was withdrawn. Pressure was held until hemostasis was achieved. The patient tolerated the procedure well without evidence of immediate complication. The patient was then monitored post procedure and discharged back to the floor in stable condition with written instructions. IMPRESSION: Successful ultrasound-guided liver biopsy. Pathology pending.
== END 2017-09-20 16:45 | DRG 64 ==
LOC: ERH 06:12 → 1NO 11:20 → ERHI 11:20 → ENRESERV 12:41 → ENTRNSPT 13:26 → EDTRNSPTSTS 13:34 → EDTRNSPT 13:34 → 1NO 13:45 → CMPTRNSPT 13:53 → 1NO 09-16 07:50 → ENPENDDIS 09-20 15:28 → ENTRNSPT 09-20 16:17 → EDTRNSPT 09-20 16:31 → EDTRNSPTSTS 09-20 16:31 → CMPTRNSPT 09-20 16:44 → 1NO 09-20 16:45
PROVIDERS: Emergency Medicine; Internal Medicine; Internal Medicine Gastroenterology; Internal Medicine Interventional Cardiology; Student in an Organized Health Care Education/Training Program
DX: I63.40 Cerebral infarction due to embolism of unspecified cerebral artery (principal); I26.99 Other pulmonary embolism without acute cor pulmonale; E22.2 Syndrome of inappropriate secretion of antidiuretic hormone; C78.7 Secondary malignant neoplasm of liver and intrahepatic bile duct; F17.210 Nicotine dependence, cigarettes, uncomplicated; D50.9 Iron deficiency anemia, unspecified; G83.24 Monoplegia of upper limb affecting left nondominant side; I10 Essential (primary) hypertension; I63.8 Other cerebral infarction; R74.0 Nonspecific elevation of levels of transaminase and lactic acid dehydrogenase [LDH]; K21.9 Gastro-esophageal reflux disease without esophagitis; I71.4 Abdominal aortic aneurysm, without rupture; R79.89 Other specified abnormal findings of blood chemistry; R79.1 Abnormal coagulation profile; Z66 Do not resuscitate
CPT/HCPCS: 1NSP; 36415; 36592; 71045; 73620-RT; 81001; 82436; 86803; 93005; 93010; 93306; 93970; 97112-GO; 97116-GO; 97161-GP; 97165-GO; 99291; J1644; J2001

== ENCOUNTER 2017-09-30 08:21 | Inpatient (IN) | payer OTHER, MEDICARE ==
[~2017-09-30] VITALS: Ht 177.8 cm; Wt 86.4 kg
[~2017-09-30 08:21] MED LIST: ASPIRIN EC81 M1 PO; ATORVASTATIN CA40 M1 PO; ELIQUIS5 M1 PO; FERROUS SULFAT325 M3 PO; METOPROLOL TART25 M1 PO; OMEPRAZOLE20 M2 PO; SODIUM CHLORIDE1 G2 PO; ULTRAM50 M1 PO; VITAMIN D250000 UNIT PO
[2017-09-30 08:50] LABS: ABSOLUTE BASOPHIL COUNT 0.1 /CUMM (0.0-0.2); ABSOLUTE EOSINOPHIL COUNT 0 /CUMM (0.0-0.7); ABSOLUTE GRANULOCYTE CT 15.2 /CUMM (1.4-6.5); ABSOLUTE LYMPH COUNT 1.6 /CUMM (1.2-3.4); ABSOLUTE MONOCYTE COUNT 0.7 /CUMM (0.10-0.60); BASOPHIL % 0.5 % (0.0-2.0); EOSINOPHIL % 0 % (0-5); GRANULOCYTE % 86.6 % (42.2-75.2); HEMATOCRIT 39.3 % (42-52); MEAN CORPUSCULAR HGB 26.7 PG (27.0-31.0); MEAN CORPUSCULAR HGB CONC 33.4 G/DL (33.0-37.0); MEAN CORPUSCULAR VOLUME 79.9 FL (80.0-94.0); MEAN PLATELET VOLUME 10.5 FL (7.4-10.4); PLATELET COUNT 82 /CUMM (130-400); RBC DISTRIBUTION WIDTH 20.6 % (11.5-14.5); RED BLOOD CELL CT 4.92 /CUMM (4.70-6.10); WHITE BLOOD CELL COUNT 17.6 /CUMM (4.8-10.8)
--- NOTE | 2017-09-30 08:57 | ED GI/GU/ABDOMINAL COMPLAINT ---
History of Present Illness General Chief Complaint: General Adult Stated Complaint: LOW GI BLEED Source: patient, family, old records, EMS Exam Limitations: no limitations Vital Signs & Intake/Output Vital Signs & Intake/Output Vital Signs Date Time Temp Pulse Resp B/P B/P Pulse O2 O2 Flow FiO2 Mean Ox Delivery Rate 09/30 1031 97.8 88 18 95/61 94 Room Air 09/30 0954 80 81/50 09/30 0946 80/50 09/30 0908 82/52 09/30 0839 97 09/30 0823 97.8 81 20 80/58 97 Room Air Allergies Coded Allergies: No Known Allergies (09/15/17) Reconcile Medications Apixaban (Eliquis) 5 MG TABLET 1 TAB PO BID Pulmonary Embolism Aspirin (Ecotrin*) 81 MG TABLET.DR 1 TAB PO DAILY HEART (Reported) Atorvastatin Calcium 40 MG TABLET 1 TAB PO DAILY Heart Health Ergocalciferol (Vitamin D2) (Vitamin D2) 50,000 UNIT CAPSULE 1 CAP PO QTUES SUPPLEMENT (Reported) Ferrous Sulfate 325 MG (65 MG IRON) TABLET 1 TAB PO DAILY Supplement Metoprolol Tartrate 25 MG TABLET 1 TAB PO BID Heart Health Omeprazole 20 MG CAPSULE.DR 1 CAP PO DAILY GERD (Reported) Sodium Chloride 1 GRAM TABLET 2,000 MG PO TID Hyponatremia Tramadol HCl (Ultram) 50 MG TABLET 1 TAB PO TIDPRN PAIN (Reported) Triage Note: 67 YEAR OLD MALE HISTORY OF COLON CANCER AND SROKE IN SEPTEMBER TO ER VIA AMBULANCE WITH COMPLAINTS OF LOW GI BLEED SINCE LAST PM, PT PALE ALERT AND ORIENTED , HYPOTENSIVE ON ARRIVAL MANUAL BP 80/58. DENIES PAIN, BLOOD IS BRIGHT RED AND IS MIXED IN WITH HIS STOOL. PT HAS L SIDE WEAKNESS FROM STROKE IN SEPTEMBER, SPEECH A LITTLE SLURRED , BUT PT STATES THAT IT IS DUE TO HE DOES NOT HAVE HIS DENTURES IN. PT TAKES ELIQUIS AND BABY ASA DAILY. NOTED WITH BLE PEDAL EDEMA, O2 SAT 97 % ON RA. Triage Nurses Notes Reviewed? yes Onset: Just prior to arrival Duration: minute(s):, gone now Timing: recent history Quality/Severity: severe Location: generalized abdomen Radiation: no radiation Activities at Onset: Defecating Prior Abdominal Problems: none Past Sexual History: Unobtainable at this time Modifying Factors: Worsens With: defecating, movement. Associated Symptoms: fatigue, loss of appetite, weakness HPI: Patient was recently discharged from [facility] for metastatic cancer of unknown primary bilateral pulmonary embolism peripheral vascular disease strokePrior to admission. 4 days prior to admission developed increasing fatigue anorexia shortness of breath with exertion. Prior to admission the past bright red blood per rectum with stool unable to get off the toilet secondary to fatigue and weakness. There's been no fever chills nausea vomiting chest pain cough headache dysuria rash. Past History Travel History Traveled to [place] past 21 day No Medical History Any Pertinent Medical History? 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 No Review of Systems Review of Systems Constitutional: Reports: see HPI, weakness. EENTM: Reports: no symptoms. Respiratory: Reports: no symptoms. Cardiovascular: Reports: see HPI, orthopena. GI: Reports: see HPI, bloody stool. Genitourinary: Reports: no symptoms. Musculoskeletal: Reports: no symptoms. Skin: Reports: no symptoms. Neurological/Psychological: Reports: no symptoms. Hematologic/Endocrine: Reports: no symptoms. Immunologic/Allergic: Reports: no symptoms. All Other Systems: Reviewed and Negative Physical Exam Physical Exam General Appearance: well developed/nourished, alert, awake, severe distress Head: atraumatic, normal appearance Eyes: Bilateral: normal appearance, PERRL, EOMI, normal inspection. Ears, Nose, Throat, Mouth: hearing grossly normal, moist mucous membrane Neck: normal inspection, supple, full range of motion, normal alignment Respiratory: normal breath sounds, chest non-tender, no respiratory distress, quiet respiration, decreased breath sounds Cardiovascular: regular rate/rhythm, normal peripheral pulses, norml femoral pulses equa Peripheral Pulses: 4+ carotid (R), 4+ carotid (L) Gastrointestinal: normal bowel sounds, soft, non-tender, distention, hepatomegaly, ascites Rectal: normal inspection, bloody stool Male Genitals: normal genitalia Back: normal inspection, normal range of motion, no vertebral tenderness Extremities: bony-point tenderness, pedal edema Neurologic/Psych: awake, alert, oriented x 3, normal mood/affect, 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 Yes No ASA d/t Medical Contraindication Sepsis Present: No Sepsis Focused Exam Completed? No Progress Differential Diagnosis: colon cancer, pancreatitis, PUD/GERD Plan of Care: Orders Procedure Date/time Status TROPONIN LEVEL 09/30 1400 Active CBC WITHOUT DIFFERENTIAL 09/30 1400 Active BASIC ELECTROLYTES PLUS BUN&CR 09/30 1400 Active VRE ACTIVE SURVIELLANCE 09/30 1141 Active ACTIVE SURVEILLANCE NARES 09/30 1141 Active Pathway - chart 09/30 1136 Active House Staff 09/30 1136 Active Code Status 09/30 1136 Active LACTIC ACID 09/30 1133 Active URINALYSIS 09/30 1125 Complete BLOOD PRODUCT PICKUP 09/30 1121 Active FRESH FROZEN PLASMA 09/30 1056 Active Patient Data 09/30 1039 Active Admit to inpatient 09/30 1015 Active EKG 09/30 0943 Active Add-on Test (ER Only) 09/30 0842 Active Intake & Output 09/30 0839 Active TROPONIN LEVEL 09/30 0834 Complete MAGNESIUM 09/30 0834 Complete PARTIAL THROMBOPLASTIN TIME 09/30 0833 Complete PROTHROMBIN TIME 09/30 0833 Complete LACTIC ACID 09/30 0833 Complete COMPREHENSIVE METABOLIC PANEL 09/30 0833 Complete CBC WITHOUT DIFFERENTIAL 09/30 0833 Complete TYPE & SCREEN (NOT X-MATCH) 09/30 0833 Complete VTE Mechanical Prophylaxis 09/30 UNK Active Current Medications Sig/Lola Start time Last Medication Dose Stop Time Status Admin Non-Formulary 0 SEE ADMIN CRITERIA 09/30 1015 CAN Medication (NON FORMULARY) Pantoprazole Sodium 40 MG Q5H 09/30 1015 AC 09/30 (Protonix) 1030 Sodium Chloride 100 ML (Normal Saline 0.9%) Laboratory Tests 09/30/17 1151: Lactic Acid Pending 09/30/17 1126: Urinalysis LIGHT H, Urine Color YEL, Urine Clarity HAZY H, Urine pH 6.0, Ur Specific [place] 1.025, Urine Protein TRACE H, Urine Ketones NEG, Urine Nitrite NEG, Urine Bilirubin POS@ICTO H, Urine Urobilinogen 1.0, Ur Leukocyte Esterase NEG, Ur Microscopic SEDIMENT EXAMINED, Urine RBC 1-3, Urine WBC 1-3 H, Ur Epithelial Cells FEW, Urine Bacteria RARE H, Hyaline Casts RARE H, Granular Casts 1-3 H, Urine Mucus FEW, Urine Hemoglobin NEG, Urine Glucose NEG 09/30/17 1010: PT 81.2 *H, INR 7.30 *H, APTT 70 H 09/30/17 0834: Anion Gap 10, Estimated GFR 55 L, BUN/Creatinine Ratio 36.9 H, Glucose 73, Lactic Acid 5.0 H, Calcium 7.6 L, Magnesium 2.2, Total Bilirubin 3.2 H, AST 311 H, ALT 124 H, Alkaline Phosphatase 788 H, Troponin I 3.87 *H, Total Protein 5.0 L, Albumin 1.9 L, Globulin 3.1, Albumin/Globulin Ratio 0.6 L, CBC w Diff MAN DIFF ORDERED, RBC 4.92, MCV 79.9 L, MCH 26.7 L, MCHC 33.4, RDW 20.6 H, MPV 10.5 H, Gran % 86.6 H, Lymphocytes % 8.9 L, Monocytes % 4.0, Eosinophils % 0, Basophils % 0.5, Absolute Granulocytes 15.2 H, Absolute Lymphocytes 1.6, Absolute Monocytes 0.7 H, Absolute Eosinophils 0, Absolute Basophils 0.1, Platelet Estimate DECREASED, Polychromasia 1+, Poikilocytosis 2+, Anisocytosis 1+ Microbiology 09/30 1141 UPPER RESP: Surveillance Culture - ORD 09/30 1141 GI: Surveillance Culture - ORD Initial ED EKG: RBBB (incomplete), no ST T wave changes Prior EKG: unchanged Rhythm Strip: normal sinus rhythm Comments: Lactic acidosis likely not due to infection but low flow state and dehydration. Discussed prognosis, diagnostic findings with spouse and patient. They have decided on DNR/I, no central line, no pressors. They would like to try to stop bleeding and reverse Eliquis effect and colonoscopy. Departure Departure Disposition: STILL A PATIENT Condition: Critical Clinical Impression Primary Impression: Lower GI bleed Secondary Impressions: Coagulopathy, Elevated troponin, Hypotension due to blood loss, Lactic acidosis, Liver failure, acute, Metastatic disease Referrals: Richardson MD,Raymond R (PCP/Family) Departure Forms: Customer Survey General Discharge Information Admission Note Spoke With: Darron VIDAL,Vernon Documentation of Exam: Documentation of any treatments & extenuating circumstances including Concerns Regarding Discharge (functional status, medication knowledge or non-compliance, living conditions, etc.) that warrant an admission rather than observation: ICU monitoring serial lab exam oncology evaluation GI evaluation ICU evaluation medication adjustment continuing care discharge planning end-of-life care. Critical Care Note Critical Care Note Critical Care Time: 30-74 min (90)
--- NOTE | 2017-09-30 10:33 | History & Physical ---
General Information and HPI MD Statement: I have seen and personally examined PASHA UREÑA and documented this H&P. The patient is a 67 year old M who presented with a patient stated chief complaint of lower gi bleed. Source of Information: patient, family Exam Limitations: no limitations History of Present Illness: This is a 67-year-old pleasant gentleman with a significant past medical history for metastatic cancer (Liver/pancrease/lung mets) with recent preliminary biopsy suggestive of primary colorectal cancer (?), recently admitted this month to [facility] and found to have a left parietal CVA ,bilateral PE, PAD with iliac artery compromise, was discharged on apixaban and aspirin, now presents to [facility] ED after having an episode of hematochezia. Patient spouse reports that today early in the morning she noticed some ana blood in the patient's stool and around the toilet. Pt Denied any new abdominal pain, nausea/vomiting, hematemesis, fever or chills. Patient reports that since last discharge, he has been expressing diarrhea was initially started on Imodium and then switched to Lomotil. He also reports generalize malaise and decreased appetite and fluid intake for the past few days. Allergies/Medications Allergies: Coded Allergies: No Known Allergies (09/15/17) Home Med list Apixaban (Eliquis) 5 MG TABLET 1 TAB PO BID Pulmonary Embolism Aspirin (Ecotrin*) 81 MG TABLET.DR 1 TAB PO DAILY HEART (Reported) Atorvastatin Calcium 40 MG TABLET 1 TAB PO DAILY Heart Health Ergocalciferol (Vitamin D2) (Vitamin D2) 50,000 UNIT CAPSULE 1 CAP PO QTUES SUPPLEMENT (Reported) Ferrous Sulfate 325 MG (65 MG IRON) TABLET 1 TAB PO DAILY Supplement Metoprolol Tartrate 25 MG TABLET 1 TAB PO BID Heart Health Omeprazole 20 MG CAPSULE.DR 1 CAP PO DAILY GERD (Reported) Sodium Chloride 1 GRAM TABLET 2,000 MG PO TID Hyponatremia Tramadol HCl (Ultram) 50 MG TABLET 1 TAB PO TIDPRN PAIN (Reported) Past History Travel History Traveled to [place] past 21 day No Medical History Neurological: TIA EENT: NONE Cardiovascular: AORTIC ANEURYSM Respiratory: NONE Gastrointestinal: GERD Hepatic: NONE Renal: NONE Musculoskeletal: NONE Psychiatric: NONE Endocrine: NONE Blood Disorders: PE Cancer(s): colon/rectal cancer, LESIONS ON LIVER,KIDNEY, PANCREATIS 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 spouse Services at Home: None Primary Language: Bhutanese ETOH Use: denies use Illicit Drug Use: denies illicit drug use Functional Ability ADLs Independent: dressing, eating, toileting, bathing. Ambulation: independent IADLs Independent: finances. Sexual History Past Sexual History Unobtainable at this time Review of Systems Review of Systems Constitutional: Reports: malaise. EENTM: Reports: no symptoms. Cardiovascular: Reports: no symptoms. Respiratory: Reports: no symptoms. GI: Reports: no symptoms. Genitourinary: Reports: no symptoms. Musculoskeletal: Reports: no symptoms. Skin: Reports: no symptoms. Neurological/Psychological: Reports: no symptoms. Hematologic/Endocrine: Reports: no symptoms. Immunologic/Allergic: Reports: no symptoms. All Other Systems: Reviewed and Negative Exam & Diagnostic Data Last 24 Hrs of Vital Signs/I&O Vital Signs Date Time Temp Pulse Resp B/P B/P Pulse O2 O2 Flow FiO2 Mean Ox Delivery Rate 09/30 1319 98.7 87 20 104/69 98 Room Air 09/30 1158 98.9 111 18 91/80 94 Room Air 09/30 1031 97.8 88 18 95/61 94 Room Air 09/30 0954 80 81/50 09/30 0946 80/50 09/30 0908 82/52 09/30 0839 97 09/30 0823 97.8 81 20 80/58 97 Room Air Intake & Output 09/30 1600 09/30 0800 09/30 0000 Intake Total 3000 Output Total Balance 3000 Intake, IV 3000 Patient 86.183 kg Weight Physical Exam General Appearance Alert, Oriented X3, Cooperative, Mild Distress Skin No Significant Lesion Skin Temp/Moisture Exam: Warm/Dry Sepsis Skin Exam (color): Normal for Ethnicity HEENT Atraumatic, slightly dry oral mucosa Neck Supple, No JVD Lymphatic Cervical nl Cardiovascular Regular Rate, Normal S1, Normal S2 Lungs Clear to Auscultation, Normal Air Movement Abdomen BS + present in all 4 quadrants, distended, mild tenderness on palaption of the abdominal areas. Neurological Normal Tone, Sensation Intact Extremities No Tenderness/Swelling, ulcer appearance of fifth toe on the plantar surface. DP pulses not appreaciated on the left toe. Sepsis Peripheral Pulse Location: Radial Sepsis Peripheral Pulse Exam: Normal Sepsis Cap Refill Exam: <2 Sec Rectal deferred, already done by ED staff (reported as no fissures, but presence of blood). Last 24 Hrs of Labs/Cy: Laboratory Tests 09/30/17 1418: Sodium Pending, Potassium Pending, Chloride Pending, Carbon Dioxide Pending, Anion Gap Pending, BUN Pending, Creatinine Pending, BUN/Creatinine Ratio Pending , Lactic Acid Pending, Troponin I Pending, CBC w Diff Pending, WBC Pending, RBC Pending, Hgb Pending, Hct Pending, MCV Pending, MCH Pending, MCHC Pending, RDW Pending, Plt Count Pending, MPV Pending 09/30/17 1151: Lactic Acid 4.3 H 09/30/17 1126: Urinalysis LIGHT H, Urine Color YEL, Urine Clarity HAZY H, Urine pH 6.0, Ur Specific [place] 1.025, Urine Protein TRACE H, Urine Ketones NEG, Urine Nitrite NEG, Urine Bilirubin POS@ICTO H, Urine Urobilinogen 1.0, Ur Leukocyte Esterase NEG, Ur Microscopic SEDIMENT EXAMINED, Urine RBC 1-3, Urine WBC 1-3 H, Ur Epithelial Cells FEW, Urine Bacteria RARE H, Hyaline Casts RARE H, Granular Casts 1-3 H, Urine Mucus FEW, Urine Hemoglobin NEG, Urine Glucose NEG 09/30/17 1010: PT 81.2 *H, INR 7.30 *H, APTT 70 H 09/30/17 0834: Anion Gap 10, Estimated GFR 55 L, BUN/Creatinine Ratio 36.9 H, Glucose 73, Lactic Acid 5.0 H, Calcium 7.6 L, Magnesium 2.2, Total Bilirubin 3.2 H, AST 311 H, ALT 124 H, Alkaline Phosphatase 788 H, Troponin I 3.87 *H, Total Protein 5.0 L, Albumin 1.9 L, Globulin 3.1, Albumin/Globulin Ratio 0.6 L, CBC w Diff MAN DIFF ORDERED, RBC 4.92, MCV 79.9 L, MCH 26.7 L, MCHC 33.4, RDW 20.6 H, MPV 10.5 H, Gran % 86.6 H, Lymphocytes % 8.9 L, Monocytes % 4.0, Eosinophils % 0, Basophils % 0.5, Absolute Granulocytes 15.2 H, Absolute Lymphocytes 1.6, Absolute Monocytes 0.7 H, Absolute Eosinophils 0, Absolute Basophils 0.1, Platelet Estimate DECREASED, Polychromasia 1+, Poikilocytosis 2+, Anisocytosis 1+ Microbiology 09/30 1200 UPPER RESP: Surveillance Culture - RECD 09/30 1141 GI: Surveillance Culture - ORD Diagnostic Data EKG Results q wave in inferior leads (age indeterminate). Assessment/Plan Assessment: [id number] pleasant gentleman with extensive multiple comorbidities including metastatic cancer, CVA, bilateral PEs, AAA disease, significant PAD, dense with one day history of lower GI bleeding consistent with hematochezia in the setting of coagulopathy and active and elliquis/aspirin use. Impression * Hematochezia. * Coagulopathy * Elevated troponins * Acute kidney injury * Hyperlactetemia * Thrombocytopenia * Transaminitis * Hyperbilirubinemia * History of chronic disease: CVA, bilateral PEs, AAA, PAD, malignancy with metastasis, hyponatremia Plan * Admit to ICU * Stop apixaban and aspirin * Status post vitamin K, FFP, continue K-centra infusion * CBC every 6 hours for now * Await GI recommendation risk-benefit assessment of possible colonoscopy * Will trend sodium level at 2 PM, as patient has received about 3 L of normal saline bolus for application, and in the context of hyponatremia most likely SIADH, will be careful with worsening hyponatremia * Will trend troponins, unlikeky to be ACS, his clinical presentation is more suggestive of type II PA secondary to supply demand mismatch. Given the extensive PAD, and Q waves in the inferior leads on his EKG, patient very likely has CAD. Utility of nuclear stress test for risk stratification once patient is stable is questionable since patient's wishes no aggressive or heroic measures. * Will consider vascular consult for the affected toe, however patient is currently reluctant, and spouse states that he was already following up on an outpatient basis * Consider Palliative/hospice consult in the am. * DVT prophylaxis: Currently address by supra therapeutic INR, will later institute Alps only * CODE STATUS: DNR/DNI, no pressors, no central line or heroic measures As Ranked By This Provider Problem List: 1. Lower GI bleed 2. Coagulopathy 3. Hypotension due to blood loss 4. Elevated troponin 5. Hyponatremia 6. Metastatic disease Core Measures/Misc (01/20) Acute Coronary Syndrome ACS Diagnosis: No Congestive Heart Failure Congestive Heart Failure Diagnosis No Cerebrovascular Accident CVA/TIA Diagnosis: No VTE (View Protocol) VTE Risk Factors Cancer/chemo/othr therapy No Mechanical VTE Prophylaxis d/t N/A MechProphylax Ordered No VTE Pharm Prophylaxis d/t Bleeding (Active) Sepsis (View protocol) Sepsis Present: No If YES complete Sepsis Event Note If YES complete Sepsis Event Note
[2017-09-30 10:36] LABS: PTT 70 SEC (25-37)
[2017-09-30 10:39] LABS: PT 81.2 SEC (9.4-12.5)
--- NOTE | 2017-09-30 11:37 | Cons- Gastroenterology ---
General Information and HPI Consulting Request Date of Consult: 09/30/17 Requested By: MD Darron, Vernon Reason for Consult: 1. Hematochezia 2. Hypotension 3. Metastatic cancer, unknown primary 4. Coagulopathy Source of Information: family, electronic medical records Exam Limitations: poor historian History of Present Illness: Mr. Ulloa is a 67-year-old man with past medical history of pulmonary/hepatic /pancreatic lesions of unknown etiology (although preliminary pathology may suggest colorectal etiology), AAA, and GERD who was last admitted to [facility] in September 15, 2017 with slurred speeach and a facial droop. A Head CT showed a possible small acute to subacute infarct involving the left parietal lobe as well as a smaller infarct of indeterminate age within the right parietal lobe. His symptoms subsequently resolved suggestive of a TIA superimposed upon prior infarcts. He was also seen at that time by vascular surgery for an ischemic right 5th toe. He had a CT Scan of the abdomen and pelvis on 09/06/2017 that showed the following : FINDINGS: CHEST: Lung: There are a few scattered 2-3 mm calcified and noncalcified pulmonary nodules. There are some scattered areas of increased subpleural reticular opacities which may reflect very early fibrosis versus atelectasis (right upper lobe anteriorly 165/1079). Atelectasis versus scarring in the left lung base. Pleura: No pleural effusion or pneumothorax. Mediastinum: The heart size is normal, no pericardial effusion. There are coronary artery calcifications. Scattered subcentimeter mediastinal lymph nodes. The central airway is patent. Vascular: Mild diffuse aneurysmal dilatation of the ascending thoracic aorta which measures 4.2 x 4.1 cm. Chest Wall/Axilla: No axillary or internal mammary lymphadenopathy. ABDOMEN/PELVIS: Liver, Gallbladder and Biliary Tree: There are extensive, somewhat ill-defined, low-attenuation lesions throughout the liver. On the noncontrast enhanced images, some of these lesions demonstrate high attenuation possibly related to calcification. On the arterial phase, no clearly arterially hypervascular lesions are identified. The liver does demonstrate relatively heterogeneous enhancement on the arterial phase. The lesions remain lower attenuation relative to the more homogeneous attenuated liver on the portal venous phase. There is no intrahepatic biliary ductal dilatation. The hepatic artery, portal vein and hepatic veins appear to be patent. There is trace perihepatic ascites along the anterior aspect of the liver. The gallbladder is decompressed. Pancreas: Within the tail of the pancreas, there is a suggestion of a possible ill-defined low-attenuation mass with areas of increased attenuation (4, 58/135) and the lesion measures approximately 2.8 x 2.5 cm. There is no pancreatic ductal dilatation. No peripancreatic fat stranding. Spleen: Normal size. No focal lesion. Adrenal Glands: Mild diffuse thickening of the left adrenal gland without a discrete nodule. Kidneys and Ureters: In the interpolar region of the left kidney, there is an ill-defined 1.8 x 1.3 cm low-attenuation lesion (4, 67/135). No hydronephrosis. No renal calculi. Gastrointestinal Tract: Stomach and small bowel non-dilated. No colonic wall thickening or pericolonic inflammatory changes. Abdominal Wall: No significant hernia is appreciated. Lymphovascular Structures: Infrarenal abdominal aortic aneurysm with asymmetric mural thrombus. The aneurysm measures 4.7 x 4.7 cm. Bladder: The bladder is partially distended. No focal bladder wall thickening. Pelvic Viscera: The prostate and seminal vesicles are normal. There is a small amount of free fluid within the pelvis. OSSEOUS STRUCTURES: Suspect vertebral body hemangiomas in the T4 and T10 vertebral bodies. Focal fat attenuation within the L3 vertebral body may also be related to a hemangioma. IMPRESSION: 1. Extensive low-attenuation lesions throughout the liver. The findings are most concerning for extensive metastatic disease. These lesions would be amenable to percutaneous biopsy. 2. Suggestion of a mass versus a pseudolesion in the tail of the pancreas. MRI of the abdomen with contrast may help to better characterize. 3. Ill-defined 1.8 x 1.3 cm low-attenuation lesion in the interpolar region of the left kidney. Consider further evaluation with renal ultrasound. 4. A 4.7 x 4.7 cm infrarenal abdominal aortic aneurysm. 5. Mild diffuse aneurysmal dilatation of the ascending thoracic aorta which measures 4.2 x 4.7 cm. 6. I suspect there are multiple vertebral body hemangiomas although metastatic disease cannot be completely excluded. No clear evidence of pathologic fracture. Patient presents today with massive hematochezia. His reports that he was awakened in the middle the night and went to the bathroom multiple times and flushed the toilet without alerting her. However this morning she noted that the toilet bowl was filled with dark red blood and clots both mixed in with the stool and apart from the stool. Upon arrival to the ED the patient was hypotensive. Patient has been taking Eliquis for his TIA. He had a PT/INR of 81.2/7.3 on admission. Na was 124, BUN/Cr was 48/1.3. Lactic acid was 4.3, T. Bili was 3.2 (previously on 09/20 it had been 1.4). AST/ ALT was 311/124, alk phos was 788 (previously in the 500s). Albumin ws 1.9 and Troponin was 3.87. Allergies/Medications Allergies: Coded Allergies: No Known Allergies (09/15/17) Home Med List: Apixaban (Eliquis) 5 MG TABLET 1 TAB PO BID Pulmonary Embolism Aspirin (Ecotrin*) 81 MG TABLET.DR 1 TAB PO DAILY HEART (Reported) Atorvastatin Calcium 40 MG TABLET 1 TAB PO DAILY Heart Health Ergocalciferol (Vitamin D2) (Vitamin D2) 50,000 UNIT CAPSULE 1 CAP PO QTUES SUPPLEMENT (Reported) Ferrous Sulfate 325 MG (65 MG IRON) TABLET 1 TAB PO DAILY Supplement Metoprolol Tartrate 25 MG TABLET 1 TAB PO BID Heart Health Omeprazole 20 MG CAPSULE.DR 1 CAP PO DAILY GERD (Reported) Sodium Chloride 1 GRAM TABLET 2,000 MG PO TID Hyponatremia Tramadol HCl (Ultram) 50 MG TABLET 1 TAB PO TIDPRN PAIN (Reported) Current Medications: Current Medications Sig/Lola Start time Last Medication Dose Route Stop Time Status Admin Anti-Inhibitor 3,500 UNIT ONCE ONE 09/30 1100 DC 09/30 Coagulant Complex IV 09/30 1114 1116 N/A 1 UNIT Non-Formulary 0 SEE ADMIN CRITERIA 09/30 1015 CAN Medication ANY Pantoprazole Sodium 0 .STK-MED ONE 09/30 1028 DC IV Pantoprazole Sodium 40 MG ONCE ONE 09/30 1015 DC 09/30 IV 09/30 1016 1030 Pantoprazole Sodium 40 MG Q5H 09/30 1015 UNVr 09/30 Sodium Chloride 100 ML IV 1030 Phytonadione 0 .STK-MED ONE 09/30 0933 DC .ROUTE Phytonadione 10 MG ONCE ONE 09/30 0930 DC 09/30 IM 09/30 0931 0929 Sodium Chloride 1,000 ML BOLUS ONE 09/30 0915 DC 09/30 IV 09/30 1014 0924 Sodium Chloride 1,000 ML BOLUS ONE 09/30 0915 DC 09/30 IV 09/30 1014 0933 Sodium Chloride 1,000 ML BOLUS ONE 09/30 0915 DC 09/30 IV 09/30 1014 0924 Past History Travel History Traveled to [place] past 21 day No Medical History Neurological: TIA EENT: NONE Cardiovascular: AORTIC ANEURYSM Respiratory: NONE Gastrointestinal: GERD Hepatic: NONE Renal: NONE Musculoskeletal: NONE Psychiatric: NONE Endocrine: NONE Blood Disorders: PE Cancer(s): colon/rectal cancer, LESIONS ON LIVER,KIDNEY, PANCREATIS 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 spouse Services at Home: None Primary Language: Arabic ETOH Use: denies use Illicit Drug Use: denies illicit drug use Functional Ability ADLs Independent: dressing, eating, toileting, bathing. Ambulation: independent IADLs Independent: finances. Review of Systems Review of Systems: Unable to obtain review of systems as patient is in moderate distress. Exam & Diagnostic Data Vital Signs and I&O Vital Signs Date Time Temp Pulse Resp B/P B/P Pulse O2 O2 Flow FiO2 Mean Ox Delivery Rate 09/30 1031 97.8 88 18 95/61 94 Room Air 09/30 0954 80 81/50 09/30 0946 80/50 09/30 0908 82/52 09/30 0839 97 09/30 0823 97.8 81 20 80/58 97 Room Air Intake & Output 09/30 1600 09/30 0400 09/29 1600 09/29 0400 09/28 1600 09/28 0400 Intake Total 3000 Output Total Balance 3000 Intake, IV 3000 Patient 190 lb Weight Physical Exam General Appearance: cachetic, moderate distress Head: atraumatic Eyes: Bilateral: normal appearance. Ears, Nose, Throat: hearing grossly normal Neck: normal inspection, supple Respiratory: normal breath sounds, lungs clear Cardiovascular: tachycardia, !/ DAYNE Gastrointestinal: soft, non-tender, increased active bowel sounds, no rebound or guarding Extremities: purpuric/ischemic area between right fourth and fifth toes as well as on lateral aspect of right foot Neurologic/Psych: awake, oriented x 3 Skin: poor turgor Results Pertinent Lab Results: Laboratory Tests 09/30 09/30 1010 0834 Chemistry Sodium (137 - 145 mmol/L) 124 L Potassium (3.5 - 5.1 mmol/L) 5.5 H Chloride (98 - 107 mmol/L) 92 L Carbon Dioxide (22 - 30 mmol/L) 22 Anion Gap (5 - 16) 10 BUN (9 - 20 mg/dL) 48 H Creatinine (0.7 - 1.2 mg/dL) 1.3 H Estimated GFR (>60 ml/min) 55 L BUN/Creatinine Ratio (7 - 25 %) 36.9 H Glucose (65 - 99 mg/dL) 73 Lactic Acid (0.7 - 2.1 mmol/L) 5.0 H Calcium (8.4 - 10.2 mg/dL) 7.6 L Magnesium (1.6 - 2.3 mg/dL) 2.2 Total Bilirubin (0.2 - 1.3 mg/dL) 3.2 H AST (17 - 59 U/L) 311 H ALT (21 - 72 U/L) 124 H Alkaline Phosphatase (< 127 U/L) 788 H Troponin I (<0.11 ng/ml) 3.87 *H Total Protein (6.3 - 8.2 g/dL) 5.0 L Albumin (3.5 - 5.0 g/dL) 1.9 L Globulin (1.9 - 4.2 gm/dL) 3.1 Albumin/Globulin Ratio (1.1 - 2.2 %) 0.6 L Coagulation PT (9.4 - 12.5 SEC) 81.2 *H INR (0.90 - 1.17) 7.30 *H APTT (25 - 37 SEC) 70 H Hematology CBC w Diff MAN DIFF ORDERED WBC (4.8 - 10.8 /CUMM) 17.6 H RBC (4.70 - 6.10 /CUMM) 4.92 Hgb (14.0 - 18.0 G/DL) 13.2 L Hct (42 - 52 %) 39.3 L MCV (80.0 - 94.0 FL) 79.9 L MCH (27.0 - 31.0 PG) 26.7 L MCHC (33.0 - 37.0 G/DL) 33.4 RDW (11.5 - 14.5 %) 20.6 H Plt Count (130 - 400 /CUMM) 82 L MPV (7.4 - 10.4 FL) 10.5 H Gran % (42.2 - 75.2 %) 86.6 H Lymphocytes % (20.5 - 51.1 %) 8.9 L Monocytes % (1.7 - 9.3 %) 4.0 Eosinophils % (0 - 5 %) 0 Basophils % (0.0 - 2.0 %) 0.5 Absolute Granulocytes (1.4 - 6.5 /CUMM) 15.2 H Absolute Lymphocytes (1.2 - 3.4 /CUMM) 1.6 Absolute Monocytes (0.10 - 0.60 /CUMM) 0.7 H Absolute Eosinophils (0.0 - 0.7 /CUMM) 0 Absolute Basophils (0.0 - 0.2 /CUMM) 0.1 Platelet Estimate (ADEQUATE) DECREASED Polychromasia 1+ Poikilocytosis 2+ Anisocytosis 1+ Assessment/Plan Assessment/Recommendations: ASSESSMENT: 1. Hematochezia with hypotension. Bleeding may be due to colon primary if in fact patient does have colon cancer. Patient may also be bleeding from rapid upper GI source. However in the setting of severe coagulopathy I am unable to perform endoscopic procedures. This is been discussed with the patient's . 2. Hypotension 3. Metastatic Cancer, Unknown Primary 4. Chronic Use of Anti-Platelet Agent, Last Dose Last Night 5. Coagulopathy. This is likely multifactorial due to nutritional deficiencies , hepatic infiltration by malignant cells, as well as Eliquis. 6. Ischemia right fourth and fifth toes as well as a portion of right foot. Patient was scheduled to see vascular surgery tomorrow has notified them that patient has been admitted to the hospital. RECOMMENDATIONS: 1. FFP to bring down PT/INR to less than 2. After first 4 units have been given repeat stat PT/INR and if patient with elevated PT/INR give additional FFP until corrected. 2. 2 large-bore IVs 3. Serial H&H every 4 hours. Type and cross for 4 units PRBC on hold and transfuse to keep Hgb above 7.0. 4. Protonix 40 mg IV BID 5. Call Dr. Mann if there is any change in clinical condition. 4. Admit to ICU 5. Protonix 40 mg IV twice a day Consult Acknowledgment - Thank you for your consult request.
--- NOTE | 2017-09-30 12:11 | PN- Att Addend ---
Attending Addendum Attending Brief Note Patient seen and examined in emergency room. Plan of care discussed with the medical team and the patient. Patient's is at the bedside. Available lab work and radiology test reports were reviewed. In summary this is 67-year-old unfortunate male with metastatic colon carcinoma with metastases to liver status post liver biopsy on September 20 during his last admission. Patient also was recent diagnosed with the stroke as well as bilateral pulmonary emboli and was put on eliquis. He presents today with one-day history of lower GI bleed with fresh blood. Patient also noted to be hypertensive in ED. Patient complains of for upper abdominal pain but denies any recent fever chills difficulty breathing or chest pains. 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 spouse Services at Home: None Primary Language: [place] ETOH Use: denies use Illicit Drug Use: denies illicit drug use Allergies/Medications Allergies: Coded Allergies: No Known Allergies (09/15/17) Home Med list Apixaban (Eliquis) 5 MG TABLET 1 TAB PO BID Pulmonary Embolism Aspirin (Ecotrin*) 81 MG TABLET. 1 TAB PO DAILY HEART (Reported) Atorvastatin Calcium 40 MG TABLET 1 TAB PO DAILY Heart Health Ergocalciferol (Vitamin D2) (Vitamin D2) 50,000 UNIT CAPSULE 1 CAP PO QTUES SUPPLEMENT (Reported) Ferrous Sulfate 325 MG (65 MG IRON) TABLET 1 TAB PO DAILY Supplement Metoprolol Tartrate 25 MG TABLET 1 TAB PO BID Heart Health Omeprazole 20 MG CAPSULE.DR 1 CAP PO DAILY GERD (Reported) Sodium Chloride 1 GRAM TABLET 2,000 MG PO TID Hyponatremia Tramadol HCl (Ultram) 50 MG TABLET 1 TAB PO TIDPRN PAIN (Reported) Vital Signs Date Time Temp Pulse Resp B/P B/P Pulse O2 O2 Flow FiO2 Mean Ox Delivery Rate 09/30 1031 97.8 88 18 95/61 94 Room Air 09/30 0954 80 81/50 09/30 0946 80/50 09/30 0908 82/52 09/30 0839 97 09/30 0823 97.8 81 20 80/58 97 Room Air Intake & Output 09/30 1600 09/30 0800 09/30 0000 Intake Total 3000 Output Total Balance 3000 Intake, IV 3000 Patient 190 lb Weight Exam: General: Patient awake slightly lethargic appears chronically sick and disheveled; he is oriented with mild to moderate distress due to abdominal pain CVS: S1 plus S2 without any murmur or gallops Chest: Few scattered crepitation without any wheeze. There is no respiratory distress. 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 without any focal neuro deficit and follows commands appropriately Extremities: Trace bilateral leg edema; no clubbing or cyanosis noted Laboratory Tests 09/30/17 1151: Lactic Acid Pending 09/30/17 1126: Urinalysis LIGHT H, Urine Color YEL, Urine Clarity HAZY H, Urine pH 6.0, Ur Specific Blunt 1.025, Urine Protein TRACE H, Urine Ketones NEG, Urine Nitrite NEG, Urine Bilirubin POS@ICTO H, Urine Urobilinogen 1.0, Ur Leukocyte Esterase NEG, Ur Microscopic SEDIMENT EXAMINED, Urine RBC 1-3, Urine WBC 1-3 H, Ur Epithelial Cells FEW, Urine Bacteria RARE H, Hyaline Casts RARE H, Granular Casts 1-3 H, Urine Mucus FEW, Urine Hemoglobin NEG, Urine Glucose NEG 09/30/17 1010: PT 81.2 *H, INR 7.30 *H, APTT 70 H 09/30/17 0834: Anion Gap 10, Estimated GFR 55 L, BUN/Creatinine Ratio 36.9 H, Glucose 73, Lactic Acid 5.0 H, Calcium 7.6 L, Magnesium 2.2, Total Bilirubin 3.2 H, AST 311 H, ALT 124 H, Alkaline Phosphatase 788 H, Troponin I 3.87 *H, Total Protein 5.0 L, Albumin 1.9 L, Globulin 3.1, Albumin/Globulin Ratio 0.6 L, CBC w Diff MAN DIFF ORDERED, RBC 4.92, MCV 79.9 L, MCH 26.7 L, MCHC 33.4, RDW 20.6 H, MPV 10.5 H, Gran % 86.6 H, Lymphocytes % 8.9 L, Monocytes % 4.0, Eosinophils % 0, Basophils % 0.5, Absolute Granulocytes 15.2 H, Absolute Lymphocytes 1.6, Absolute Monocytes 0.7 H, Absolute Eosinophils 0, Absolute Basophils 0.1, Platelet Estimate DECREASED, Polychromasia 1+, Poikilocytosis 2+, Anisocytosis 1+ Microbiology 09/30 1141 UPPER RESP: Surveillance Culture - ORD 09/30 1141 GI: Surveillance Culture - ORD Assessment problem list * Hypotension and shock likely due to blood loss * Acute lower GI bleed likely contributed by eliquis in setting of colon cancer * Liver metastases from colon cancer * History of PE * History of parietal stroke * Hyperkalemia * Acute renal failure with increasing creatinine 1.3 * Lactic acidosis Plan * I discussed with the patient and his for whether they want to pursue hospice versus aggressive medical care at this point both wished patient to be treated but patient will remain DNR/DNI. * Admit to ICU * GI consult * Hold eliquis- from the was called unfortunately new eliquis antidote Andexxa is not available therefore will give K-centra; no role for FFP or vitamin K * Hold aspirin for now * Hold antihypertensives * Aggressive IV fluids to stabilize blood pressure; no centra line oppressors as per patient wishes * Repeat CBC every 6 hours today and then tomorrow morning; patient may need blood transfusion * Repeat BEP later today to follow potassium and creatinine * Repeat lactic acid in 2 hours * Obtain a portal chest x-ray to rule out pneumonia * Patient prognosis remains poor * Once he stabilized he is willing to pursue IVC filter
--- NOTE | 2017-09-30 12:11 | Admission Certification ---
Admission Certification Certification Statement - As attending physician, I certify that at the time of - admission, based on clinical presentation, severity of - symptoms, need for further diagnostic testing and - therapeutic interventions, and risk of adverse outcomes - without in-hospital treatment, in my clinical assessment, - this patient requires an acute hospital stay for a minimum - of two nights or longer. I have also considered psychsocial - factors such as support system, advanced age, financial - issues, cognitive issues, and failed out-patient treatments, - past re-admission history, safety of patient, and lack of - compliance as applicable. Specific rationale supporting this admission is: Shock and lower GI bleed
[2017-09-30 13:19] VITALS: BP 104/69
--- NOTE | 2017-09-30 14:38 | RADIOLOGY REPORT ---
EXAMINATION: XR PORTABLE CHEST CLINICAL INFORMATION: Pneumonia COMPARISON: Chest CT scan 09/16/2017 TECHNIQUE: Portable AP view of the chest was obtained. FINDINGS: The x-ray is taken with rotation, which limits evaluation of cardiomediastinal silhouette. No pulmonary venous congestion. There are elongated opacities at the right lung base and adjacent to the right lateral costophrenic angle, which could be atelectatic in nature. There is mild elevation of the right diaphragm. There is opacity in the left lateral costophrenic angle, which is similar to the comparison CT scan and correlates with the opacity seen in the lateral left lower lobe. No sizable pleural effusion or pneumothorax. IMPRESSION: Bilateral lower lobe pulmonary opacities. The opacity in the lateral left lower lobe is similar to the comparison CT scan and opacities in the right lower lobe are more prominent. Opacities could represent a combination of atelectasis/infarct. Superimposed pneumonia is not excluded. Clinical correlation is suggested.
[2017-09-30 14:49] LABS: ABSOLUTE BASOPHIL COUNT 0 /CUMM (0.0-0.2); ABSOLUTE EOSINOPHIL COUNT 0 /CUMM (0.0-0.7); ABSOLUTE GRANULOCYTE CT 14.7 /CUMM (1.4-6.5); ABSOLUTE LYMPH COUNT 1.2 /CUMM (1.2-3.4); ABSOLUTE MONOCYTE COUNT 0.9 /CUMM (0.10-0.60); BASOPHIL % 0.1 % (0.0-2.0); EOSINOPHIL % 0 % (0-5); GRANULOCYTE % 87.1 % (42.2-75.2); HEMATOCRIT 35.8 % (42-52); MEAN CORPUSCULAR HGB 26.5 PG (27.0-31.0); MEAN CORPUSCULAR VOLUME 80.3 FL (80.0-94.0); MEAN PLATELET VOLUME 10.3 FL (7.4-10.4); PLATELET COUNT 74 /CUMM (130-400); RBC DISTRIBUTION WIDTH 20.8 % (11.5-14.5); RED BLOOD CELL CT 4.45 /CUMM (4.70-6.10); WHITE BLOOD CELL COUNT 16.8 /CUMM (4.8-10.8)
--- NOTE | 2017-09-30 15:17 | Cons- Cardiology ---
General Information and HPI Consulting Request Date of Consult: 09/30/17 Requested By: Darron VIDAL,Vernon History of Present Illness: This patient is a 67 year old male with history of peripheral artery disease, CVA, pulmonary embolism, coronary artery disease and metastatic colorectal cancer. He is currently being treated with Eliquis and is also on aspirin. The patient presented to [facility] with hematochezia. The patient has positive cardiac enzymes and but denies any chest pain, pressure or tightness. He is lying flat without shortness of breath. He also denies lightheadedness of palpitaions. His last echocardiogram showed a decreased EF 45% with posterior wall hypokinesis. The patient does complain of diarrhea. Allergies/Medications Allergies: Coded Allergies: No Known Allergies (09/15/17) Home Med List: Apixaban (Eliquis) 5 MG TABLET 1 TAB PO BID Pulmonary Embolism Aspirin (Ecotrin*) 81 MG TABLET.DR 1 TAB PO DAILY HEART (Reported) Atorvastatin Calcium 40 MG TABLET 1 TAB PO DAILY Heart Health Ergocalciferol (Vitamin D2) (Vitamin D2) 50,000 UNIT CAPSULE 1 CAP PO QTUES SUPPLEMENT (Reported) Ferrous Sulfate 325 MG (65 MG IRON) TABLET 1 TAB PO DAILY Supplement Metoprolol Tartrate 25 MG TABLET 1 TAB PO BID Heart Health Omeprazole 20 MG CAPSULE.DR 1 CAP PO DAILY GERD (Reported) Sodium Chloride 1 GRAM TABLET 2,000 MG PO TID Hyponatremia Tramadol HCl (Ultram) 50 MG TABLET 1 TAB PO TIDPRN PAIN (Reported) Review of Systems Review of Systems: A review of systems is remarkable for diarrhea. 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 Home Who Do You Live With? spouse Services at Home: None Primary Language: [place] Smoking Status: Current Everyday Smoker ETOH Use: denies use Illicit Drug Use: denies illicit drug use Functional Ability ADLs Independent: dressing, eating, toileting, bathing. Ambulation: independent IADLs Independent: finances. Exam & Diagnostic Data Vital Signs and I&O Vital Signs Date Time Temp Pulse Resp B/P B/P Pulse O2 O2 Flow FiO2 Mean Ox Delivery Rate 09/30 1600 96 Room Air 09/30 1600 98.3 99 20 106/78 96 Room Air 09/30 1319 98.7 87 20 104/69 98 Room Air 09/30 1158 98.9 111 18 91/80 94 Room Air 09/30 1031 97.8 88 18 95/61 94 Room Air 09/30 0954 80 81/50 09/30 0946 80/50 09/30 0908 82/52 09/30 0839 97 09/30 0823 97.8 81 20 80/58 97 Room Air Intake & Output 09/30 1600 09/30 0800 09/30 0000 09/29 1600 09/29 0800 09/29 0000 Intake Total 3919 Output Total Balance 3919 Intake, Blood 639 Product Intake, IV 3080 Intake, Oral 200 Patient 190 lb Weight Weight Bed scale Measurement Method Physical Exam: General: WD/WN male in NAD; alert and oriented x 3 HEENT: NC/AT, PERRL, EOMI Neck: no JVD, no carotid bruit Heart: RRR with 2/6 systolic murmur Lungs: clear bilaterally Abdomen: soft, NT, +ve bowel sounds Extremities: 2+ leg edema bilaterally Assessment/Plan Assessment/Plan * This patient is ruling in for an CT but is pain free. In consideration of his comorbidities he is not interested in aggressive or invasive measures but medical therapy is reasonable. Unfortunately, his blood pressure is also borderline. Continue a statin and supplemental oxygen. Anticoagulation with need to be held due to active bleeding. Cardiac enzymes are trending down. Consult Acknowledgment - Thank you for your consult request.
[2017-09-30 16:00] VITALS: BP 106/78
[2017-09-30 18:07] LABS: ABSOLUTE BASOPHIL COUNT 0.1 /CUMM (0.0-0.2); ABSOLUTE EOSINOPHIL COUNT 0 /CUMM (0.0-0.7); ABSOLUTE GRANULOCYTE CT 14.8 /CUMM (1.4-6.5); ABSOLUTE LYMPH COUNT 1.3 /CUMM (1.2-3.4); ABSOLUTE MONOCYTE COUNT 0.9 /CUMM (0.10-0.60); BASOPHIL % 0.5 % (0.0-2.0); EOSINOPHIL % 0 % (0-5); HEMATOCRIT 32.2 % (42-52); MEAN CORPUSCULAR HGB 26.8 PG (27.0-31.0); MEAN CORPUSCULAR HGB CONC 33.3 G/DL (33.0-37.0); MEAN CORPUSCULAR VOLUME 80.4 FL (80.0-94.0); RBC DISTRIBUTION WIDTH 20.8 % (11.5-14.5); RED BLOOD CELL CT 4.01 /CUMM (4.70-6.10); WHITE BLOOD CELL COUNT 17.2 /CUMM (4.8-10.8)
[2017-09-30 18:13] LABS: GRANULOCYTE % 86.3 % (42.2-75.2); PLATELET COUNT 63 /CUMM (130-400)
[2017-09-30 18:18] LABS: PT 19.8 SEC (9.4-12.5)
[2017-09-30 22:51] LABS: ABSOLUTE BASOPHIL COUNT 0 /CUMM (0.0-0.2); ABSOLUTE EOSINOPHIL COUNT 0 /CUMM (0.0-0.7); ABSOLUTE GRANULOCYTE CT 15.6 /CUMM (1.4-6.5); ABSOLUTE LYMPH COUNT 1.4 /CUMM (1.2-3.4); BASOPHIL % 0.2 % (0.0-2.0); EOSINOPHIL % 0 % (0-5); HEMATOCRIT 33.1 % (42-52); MEAN CORPUSCULAR HGB 26.7 PG (27.0-31.0); MEAN CORPUSCULAR VOLUME 80.9 FL (80.0-94.0); MEAN PLATELET VOLUME 10.4 FL (7.4-10.4); PLATELET COUNT 67 /CUMM (130-400); RBC DISTRIBUTION WIDTH 21.3 % (11.5-14.5); RED BLOOD CELL CT 4.09 /CUMM (4.70-6.10); WHITE BLOOD CELL COUNT 18.1 /CUMM (4.8-10.8)
[2017-09-30 22:54] LABS: GRANULOCYTE % 86.3 % (42.2-75.2)
[2017-10-01] VITALS: BP 96/60
[2017-10-01 04:11] LABS: ABSOLUTE BASOPHIL COUNT 0 /CUMM (0.0-0.2); ABSOLUTE EOSINOPHIL COUNT 0 /CUMM (0.0-0.7); ABSOLUTE GRANULOCYTE CT 14.8 /CUMM (1.4-6.5); ABSOLUTE LYMPH COUNT 1.2 /CUMM (1.2-3.4); BASOPHIL % 0.1 % (0.0-2.0); EOSINOPHIL % 0.1 % (0-5); GRANULOCYTE % 86.5 % (42.2-75.2); HEMATOCRIT 34.8 % (42-52); MEAN CORPUSCULAR HGB 26.7 PG (27.0-31.0); MEAN CORPUSCULAR VOLUME 80.8 FL (80.0-94.0); MEAN PLATELET VOLUME 10.6 FL (7.4-10.4); PLATELET COUNT 60 /CUMM (130-400); RBC DISTRIBUTION WIDTH 20.8 % (11.5-14.5); WHITE BLOOD CELL COUNT 17.1 /CUMM (4.8-10.8)
[2017-10-01 04:15] LABS: PT 20.1 SEC (9.4-12.5)
[2017-10-01 08:00] VITALS: BP 94/70
--- NOTE | 2017-10-01 08:57 | PN- Cardiology ---
Subjective Subjective: Patient complains of abdominal pain. He denies chest pain. is at the bedside. Review of Systems: Eyes no blurred or double vision Ears no deafness or ringing Nose and throat no recurrent sinusitis Lungs per history of present illness Heart per history of present illness Abdomen abdominal pain with nausea Musculoskeletal occasional muscle and joint pains Psych no anxiety or depression Neuro without recurrent headache or seizures Endocrine no heat or cold intolerance Objective Vital Signs and I&Os Vital Signs Date Time Temp Pulse Resp B/P B/P Pulse O2 O2 Flow FiO2 Mean Ox Delivery Rate 10/01 0400 97 Room Air 10/01 0000 95 Room Air 10/01 0000 98.7 98 28 96/60 95 Room Air 09/30 1600 96 Room Air 09/30 1600 98.3 99 20 106/78 96 Room Air 09/30 1319 98.7 87 20 104/69 98 Room Air 09/30 1158 98.9 111 18 91/80 94 Room Air 09/30 1031 97.8 88 18 95/61 94 Room Air 09/30 0954 80 81/50 09/30 0946 80/50 09/30 0908 82/52 Intake & Output 10/01 1600 10/01 0800 10/01 0000 09/30 1600 09/30 0800 09/30 0000 Intake Total 903 1408 3919 Output Total 375 290 Balance 528 1118 3919 Intake, Blood 633 639 Product Intake, IV 102 214 3774 Intake, Oral 350 400 200 Number 2 3 Bowel Movements Output, Urine 375 290 Patient 191 lb 190 lb Weight Weight Bed scale Bed scale Measurement Method Echocardiogram CONCLUSIONS Mildly reduced overall Left ventricular systolic function with akinesia of the posterobasal segment. Mild left atrial enlargement. Mild Dilatation of Ascending [place]. Physical Exam: Patient is a well-developed cachectic male appearing in no acute distress HEENT is unremarkable Neck is supple there is no JVD Lungs inspiratory wheezes bilaterally Heart regular rhythm S1 and S2 are normal no murmurs gallops or rubs Abdomen bowel sounds positive Extremities 3+ edema Current Medications: Current Medications Sig/Lola Start time Last Medication Dose Route Stop Time Status Admin Anti-Inhibitor 3,500 UNIT ONCE ONE 09/30 1100 DC 09/30 Coagulant Complex IV 09/30 1114 1116 N/A 1 UNIT Atorvastatin Calcium 40 MG DAILY 10/01 09 AC PO Ergocalciferol 50,000 IU QTUES 05/29 0900 AC PO Ferrous Sulfate 325 MG DAILY 10/01 0900 AC PO Non-Formulary 0 SEE ADMIN CRITERIA 09/30 1015 CAN Medication ANY Omeprazole 20 MG DAILY 09/30 1424 AC 09/30 PO 1452 Pantoprazole Sodium 40 MG BID 09/30 1446 AC 09/30 IV 2054 Pantoprazole Sodium 0 .STK-MED ONE 09/30 1028 DC IV Pantoprazole Sodium 40 MG ONCE ONE 09/30 1015 DC 09/30 IV 09/30 1016 1030 Pantoprazole Sodium 40 MG Q5H 09/30 1015 DC 09/30 Sodium Chloride 100 ML IV 1030 Phytonadione 0 .STK-MED ONE 09/30 0933 DC .ROUTE Phytonadione 10 MG ONCE ONE 09/30 0930 DC 09/30 IM 09/30 0931 0929 Sodium Chloride 2,000 MG TID 09/30 2100 AC 09/30 PO 2053 Sodium Chloride 1,000 ML Q13H 09/30 1845 AC 09/30 IV 1914 Sodium Chloride 1,000 ML BOLUS ONE 09/30 0915 DC 09/30 IV 09/30 1014 0924 Sodium Chloride 1,000 ML BOLUS ONE 09/30 0915 DC 09/30 IV 09/30 1014 0933 Sodium Chloride 1,000 ML BOLUS ONE 09/30 0915 DC 09/30 IV 09/30 1014 0924 Telemetry personally reviewed sinus rhythm PVCs up to 5 beat runs of ventricular tachycardia Assessment/Plan Assessment/Plan #1. Elevated troponin secondary to a type II myocardial infarction #2. Metastatic pancreatic carcinoma #3. Pulmonary embolism treated with Eliquis now on hold due to GI bleed #4. CVA by history #5. Peripheral vascular disease #6. Mild LV dysfunction on recent echocardiogram Recommendations #1. Continue to hold Eliquis #2. Patient and do not want any aggressive measures due to his metastatic carcinoma. He is even refusing a central line at this point. Continue with conservative management of his type II myocardial infarction Continue telemetry? Yes
--- NOTE | 2017-10-01 09:24 | Cons- CRCU ---
General Information and HPI Allergies/Medications Allergies: Coded Allergies: No Known Allergies (09/15/17) Home Med List: Apixaban (Eliquis) 5 MG TABLET 1 TAB PO BID Pulmonary Embolism Aspirin (Ecotrin*) 81 MG TABLET.DR 1 TAB PO DAILY HEART (Reported) Atorvastatin Calcium 40 MG TABLET 1 TAB PO DAILY Heart Health Ergocalciferol (Vitamin D2) (Vitamin D2) 50,000 UNIT CAPSULE 1 CAP PO QTUES SUPPLEMENT (Reported) Ferrous Sulfate 325 MG (65 MG IRON) TABLET 1 TAB PO DAILY Supplement Metoprolol Tartrate 25 MG TABLET 1 TAB PO BID Heart Health Omeprazole 20 MG CAPSULE.DR 1 CAP PO DAILY GERD (Reported) Sodium Chloride 1 GRAM TABLET 2,000 MG PO TID Hyponatremia Tramadol HCl (Ultram) 50 MG TABLET 1 TAB PO TIDPRN PAIN (Reported) Past History Travel History Traveled to [place] past 21 day No Medical History Blood Transfusion Hx: No Neurological: TIA EENT: NONE Cardiovascular: AORTIC ANEURYSM Respiratory: NONE Gastrointestinal: GERD Hepatic: NONE Renal: NONE Musculoskeletal: NONE Psychiatric: NONE Endocrine: NONE Blood Disorders: PE Cancer(s): colon/rectal cancer, LESIONS ON LIVER,KIDNEY, PANCREATIS 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 Home Who Do You Live With? spouse Services at Home: None Primary Language: Irish Smoking Status: Current Everyday Smoker ETOH Use: denies use Illicit Drug Use: denies illicit drug use Functional Ability ADLs Independent: dressing, eating, toileting, bathing. Ambulation: independent IADLs Independent: finances. Assessment/Plan CRCU Consult Acknowledgment - Thank you for your consult request.
--- NOTE | 2017-10-01 09:38 | PN- Resident CRCU ---
Ra VIDAL,[facility] 10/01/17 0938: Subjective HPI/CRCU Issues: No acute events overnight. Patient and deciding for possible IVC filter. They have agreed to get a paracentesis. Objective Vital Signs & I&O Last 8 Hrs of Vitals and I&O: Laboratory Tests 10/01/17 0900: Lactic Acid Pending 10/01/17 0610: Lactic Acid 5.1 H 10/01/17 0530: Urinalysis MOD H, Urine Color BLDY H, Urine Clarity HAZY H, Urine pH 6.0, Ur Specific [place] 1.025, Urine Protein 100 H, Urine Ketones TRACE H, Urine Nitrite NEG, Urine Bilirubin POS@ICTO H, Urine Urobilinogen 1.0, Ur Leukocyte Esterase NEG, Ur Microscopic SEDIMENT EXAMINED, Urine RBC PACKD H, Urine WBC 1- 3 H, Ur Epithelial Cells RARE, Urine Bacteria MANY H, Granular Casts 5-10 H, Urine Hemoglobin LARGE H, Urine Glucose NEG 10/01/17 0300: Lactic Acid 5.1 H 10/01/17 0300: Anion Gap 12, Estimated GFR > 60, Glucose 60 L, Calcium 7.7 L, Phosphorus 3.9, Magnesium 2.1, Total Bilirubin 4.8 H, Direct Bilirubin 3.7 H, AST 322 H, ALT 114 H, Albumin 2.1 L, PT 20.1 H, INR 1.83 H, CBC w Diff MAN DIFF ORDERED, RBC 4.30 L, MCV 80.8, MCH 26.7 L, MCHC 33.0, RDW 20.8 H, MPV 10.6 H, Gran % 86.5 H, Lymphocytes % 7.2 L, Monocytes % 6.1, Eosinophils % 0.1, Basophils % 0.1, Absolute Granulocytes 14.8 H, Segmented Neutrophils 94 H, Absolute Lymphocytes 1.2, Lymphocytes 3 L, Monocytes 3, Absolute Monocytes 1.0 H, Absolute Eosinophils 0, Absolute Basophils 0, Platelet Estimate DECREASED, Polychromasia 1+, Anisocytosis 1+, Microcytic Cells 1+, Ovalocytes FEW, Fld Total RBCs Counted 100 10/01/17 0005: Lactic Acid 5.0 H 09/30/17 2300: Lactic Acid Cancelled 09/30/17 2200: CBC w Diff NO MAN DIFF REQ, RBC 4.09 L, MCV 80.9, MCH 26.7 L, MCHC 33.0, RDW 21.3 H, MPV 10.4, Gran % 86.3 H, Lymphocytes % 7.8 L, Monocytes % 5.7, Eosinophils % 0, Basophils % 0.2, Absolute Granulocytes 15.6 H, Absolute Lymphocytes 1.4, Absolute Monocytes 1.0 H, Absolute Eosinophils 0, Absolute Basophils 0 09/30/171999: Lactic Acid 5.6 H, Troponin I 2.27 *H 09/30/17 1731: Lactic Acid 5.1 H, PT 19.8 H, INR 1.81 H, CBC w Diff NO MAN DIFF REQ, RBC 4.01 L, MCV 80.4, MCH 26.8 L, MCHC 33.3, RDW 20.8 H, MPV 10.0, Gran % 86.3 H , Lymphocytes % 7.7 L, Monocytes % 5.5, Eosinophils % 0, Basophils % 0.5, Absolute Granulocytes 14.8 H, Absolute Lymphocytes 1.3, Absolute Monocytes 0.9 H, Absolute Eosinophils 0, Absolute Basophils 0.1 09/30/17 1418: Anion Gap 11, Estimated GFR > 60, BUN/Creatinine Ratio 43.0 H, Lactic Acid 4.6 H, Troponin I 3.11 *H, CBC w Diff NO MAN DIFF REQ, RBC 4.45 L, MCV 80.3, MCH 26.5 L, MCHC 33.0, RDW 20.8 H, MPV 10.3, Gran % 87.1 H, Lymphocytes % 7.3 L, Monocytes % 5.5, Eosinophils % 0, Basophils % 0.1, Absolute Granulocytes 14.7 H , Absolute Lymphocytes 1.2, Absolute Monocytes 0.9 H, Absolute Eosinophils 0, Absolute Basophils 0 09/30/17 1151: Lactic Acid 4.3 H 09/30/17 1126: Urinalysis LIGHT H, Urine Color YEL, Urine Clarity HAZY H, Urine pH 6.0, Ur Specific [place] 1.025, Urine Protein TRACE H, Urine Ketones NEG, Urine Nitrite NEG, Urine Bilirubin POS@ICTO H, Urine Urobilinogen 1.0, Ur Leukocyte Esterase NEG, Ur Microscopic SEDIMENT EXAMINED, Urine RBC 1-3, Urine WBC 1-3 H, Ur Epithelial Cells FEW, Urine Bacteria RARE H, Hyaline Casts RARE H, Granular Casts 1-3 H, Urine Mucus FEW, Urine Hemoglobin NEG, Urine Glucose NEG 09/30/17 1010: PT 81.2 *H, INR 7.30 *H, APTT 70 H Vital Signs Date Time Temp Pulse Resp B/P B/P Pulse O2 O2 Flow FiO2 Mean Ox Delivery Rate 10/01 0400 97 Room Air Exam General Appearance: no apparent distress, alert, awake Respiratory: short shallow breathing. exp wheezes Cardiovascular: tachycardia Gastrointestinal: soft, non-tender, distended abd, decrease BS Extremities: 2/3+ LE edema b/l, R pinky toe with gangrene and r lateral foot gangrene Current Medications: Current Medications Sig/Lola Start time Last Medication Dose Route Stop Time Status Admin Anti-Inhibitor 3,500 UNIT ONCE ONE 09/30 1100 DC 09/30 Coagulant Complex IV 09/30 1114 1116 N/A 1 UNIT Atorvastatin Calcium 40 MG DAILY 10/01 0900 AC 10/01 PO 0906 Ergocalciferol 50,000 IU QTUES 10/01 0900 AC 10/01 PO 0905 Ferrous Sulfate 325 MG DAILY 10/01 0900 AC 10/01 PO 0906 Non-Formulary 0 SEE ADMIN CRITERIA 09/30 1015 CAN Medication ANY Omeprazole 20 MG DAILY 09/30 1424 AC 09/30 PO 1452 Pantoprazole Sodium 40 MG BID 09/30 1446 AC 10/01 IV 0906 Pantoprazole Sodium 0 .STK-MED ONE 09/30 1028 DC IV Pantoprazole Sodium 40 MG ONCE ONE 09/30 1015 DC 09/30 IV 09/30 1016 1030 Pantoprazole Sodium 40 MG Q5H 09/30 1015 DC 09/30 Sodium Chloride 100 ML IV 1030 Sodium Chloride 2,000 MG TID 09/30 2100 AC 10/01 PO 0905 Sodium Chloride 1,000 ML Q13H 09/30 1845 AC 10/01 IV 0912 Sodium Chloride 1,000 ML BOLUS ONE 09/30 0915 DC 09/30 IV 09/30 1014 0924 Sodium Chloride 1,000 ML BOLUS ONE 09/30 0915 DC 09/30 IV 09/30 1014 0933 Sodium Chloride 1,000 ML BOLUS ONE 09/30 0915 DC 09/30 IV 09/30 1014 0924 Impression/Plan Impression/Problem List Impression: A: 67-year-old male with a past medical history of history metastatic cancer, AAA, and GERD recently discharged on September 20 for left parietal CVA, and bilateral PE discharge on Eliquis presenting with hematochezia in the setting of coagulopathy and active and elliquis/aspirin use. P: -Hematochezia. -Coagulopathy -Metastatic cancer -Elevated troponins -Acute kidney injury -Hyperlactetemia -Thrombocytopenia -Transaminitis -Hyperbilirubinemia -History of chronic disease: CVA, bilateral PEs, AAA, PAD, malignancy with metastasis, hyponatremia P: #GI Bleed in the setting of eliquis, aspirin and thrombocytopenia Patient was recently discharged on September 20 with Eliquis for bilateral PE and left parietal CVA. He was found to be not suitable for TPA. Echo study that was performed did not reveal any intracardiac shunt. Chest CTA usually showed bilateral pulmonary emboli without right heart strain. LE DVT was negative. Patient reports that since last discharge, he has been expressing diarrhea was initially started on Imodium and then switched to Lomotil. On the morning of presentation the patient's spouse reported ana blood in the patient's stool and around the toilet. In the ED he received vitamin K, FFP, and K-centra. IV protonix and NS 1L x3 were also given. His initial Inr was 7.3. Apixaban and aspirin were stopped. H/H was 13.2/39.3 -current INR 1.83 s/p 4 units ffp -Current H/H of 11.5/34.8, he continues to have dark ana bloody stool -monitoring cbc q8 -cont IV Protonix twice a day -Continue iron sulfate -Continue IV fluids -cont monitoring cbc q8. hgb goal >7 #bilateral PE Unclear etiology. Possibly due to DVT which had embolized previously missed as her sounds Doppler was negative during last admission. Or possibly spontaneous give his high risk of coagulation. -Currently holding any anti-coagulation due to continued ana bloody stools -will consider IVC filter placed on input from family, palliative care, and hematology oncology given the patient's poor prognosis and wishes for more conservative treatment #metastatic cancer Metastatic cancer (Liver/pancreas/lung/veretebrae, ?kidney) with recent preliminary biopsy suggestive of primary colorectal cancer were imaging reveals pancreatic mass with current CA-A levels >700k suggesting pancreatic cancer as the primary source. #hepatic dysfunction from most likely metastatic cancer His INR and hepatic dysfunction is chronic and most likely secondary to metastatic cancer His lactate consistently continues to be elevated most likely due hepatic dysfunction -cont to monitor #leukocytosis Leukcocytosis of unclear etiology Patient continues to be afebrile and does have elevated lactic acid but cultures have been negative thus far -will cont monitoring cultures #hyponatremia The patient continues to have hyponatremia which is asymptomatic. Likely chronic in nature due to possible SIADH from underlying malignancy. Current Na 129 -Continue NaCl tablets -cont NS @ 75 #eletravated troponins Initial troponin 3.87 and then down trended. -Most likely demand ischemia -Continue cardiology recommendations #Vascular disease of lower extremities Gangrenous right fifth toe and lateral foot on exam. Previous arterial doppler showed extensive atherosclerotic disease of lower extremity peripheral vessels. Was scheduled for f/u with Dr. Abernathy. -No immediate intervention of his toe/foot at this time -Plan for possible IVC filter tomorrow #CHRIS Initial Cr 1.3, Baseline Cr 0.7 -currently resolved after fluids DVT prophylaxis: ALPS - which was ok temporarily per vascular surgery CODE STATUS: DNR/DNI, no pressors, no central line or heroic measures Problem List: 1. Liver failure, acute 2. Coagulopathy 3. Lower GI bleed 4. Elevated troponin 5. Metastatic disease 6. Pulmonary emboli Pain Ratin Tomorrow's Labs & Rationales: cbc icu lft Plan DVT/Prophylaxis: ZULEMA LandisRonnieamado 10/01/17 1649: Attending MD Review Statement Attending Sign Off Attending Cosign Statement: I have: examined this patient, reviewed [facility] EMR data, personally reviewd images, discussd w/resident/PA/CONTENT ARCHITECT, discussed mgmt plan w/lina, discussed mgmt plan w/pt, agreed w/resident/PA/CONTENT ARCHITECT. Other Findings: d/w pt the goals of care. ? Pancreatic cancer with metastasis. Poor prognosis overall. Planned for therapeutic paracentesis tomorrow. Planned for IVC filter by vascular tomorrow. Given the hematochezia may not be able to start on anticoagulation. will d/w heme onc the care plan.
--- NOTE | 2017-10-01 10:03 | RADIOLOGY REPORT ---
EXAMINATION: XR PORTABLE CHEST CLINICAL INFORMATION: Ascites. Increased work of breathing. Assess for fluid overload. COMPARISON: CXR from 09/30/2017. Chest CT from 09/16/2017. TECHNIQUE: Portable frontal view of the chest was obtained. FINDINGS: No acute findings compared to 09/30/2017. The right diaphragm is elevated. There is persistent, mild opacity of the right lung base -- most likely representing atelectasis. No acute pulmonary edema, pleural effusion or pneumothorax. Cardiac silhouette is normal in size. The hilar contours are normal. The aortic arch is uncoiled. The visualized bones are intact. IMPRESSION: No new findings in the chest compared to 09/30/2017. Specifically, no evidence of fluid overload.
[2017-10-01 12:00] VITALS: BP 100/72
--- NOTE | 2017-10-01 12:04 | Cons- Vascular Surgery ---
General Information and HPI Consulting Request Date of Consult: 10/01/17 Requested By: Darron VIDAL,[place] Reason for Consult: Ischemic right 5th toe Source of Information: patient Exam Limitations: no limitations History of Present Illness: 67 y/o m w/ hx of metastatic cancer of uncertain etiology to the liver, pancrease, lung, AAA, recent stroke, PE presents with GI bleed in setting of supratherapeutic INR while on eliquis. pt has had purple right 5th toe for a month also has some developing gangrene on lateral aspect of the foot. vascular consult was obtained during previous admission and CTA was performed that showed SFA occlusion on the right and some iliac disease. 5th toe is stable. pt denies pain in the foot currently. of note patients lactate is 5.0 and troponing is elevated -- 2's. Allergies/Medications Allergies: Coded Allergies: No Known Allergies (09/15/17) Home Med List: Apixaban (Eliquis) 5 MG TABLET 1 TAB PO BID Pulmonary Embolism Aspirin (Ecotrin*) 81 MG TABLET.DR 1 TAB PO DAILY HEART (Reported) Atorvastatin Calcium 40 MG TABLET 1 TAB PO DAILY Heart Health Ergocalciferol (Vitamin D2) (Vitamin D2) 50,000 UNIT CAPSULE 1 CAP PO QTUES SUPPLEMENT (Reported) Ferrous Sulfate 325 MG (65 MG IRON) TABLET 1 TAB PO DAILY Supplement Metoprolol Tartrate 25 MG TABLET 1 TAB PO BID Heart Health Omeprazole 20 MG CAPSULE.DR 1 CAP PO DAILY GERD (Reported) Sodium Chloride 1 GRAM TABLET 2,000 MG PO TID Hyponatremia Tramadol HCl (Ultram) 50 MG TABLET 1 TAB PO TIDPRN PAIN (Reported) Past History Medical History Blood Transfusion Hx: No Neurological: TIA EENT: NONE Cardiovascular: AORTIC ANEURYSM Respiratory: NONE Gastrointestinal: GERD Hepatic: NONE Renal: NONE Musculoskeletal: NONE Psychiatric: NONE Endocrine: NONE Blood Disorders: PE Cancer(s): colon/rectal cancer, LESIONS ON LIVER,KIDNEY, PANCREATIS 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 Home Who Do You Live With? spouse Services at Home: None Primary Language: Nepali Smoking Status: Current Everyday Smoker ETOH Use: denies use Illicit Drug Use: denies illicit drug use Functional Ability ADLs Independent: dressing, eating, toileting, bathing. Ambulation: independent IADLs Independent: finances. Exam & Diagnostic Data Vital Signs and I&O Vital Signs Date Time Temp Pulse Resp B/P B/P Pulse O2 O2 Flow FiO2 Mean Ox Delivery Rate 10/01 0800 Room Air 10/01 0800 96.8 104 18 94/70 95 Room Air 10/01 0400 97 Room Air 10/01 0000 95 Room Air 10/01 0000 98.7 98 28 96/60 95 Room Air 09/30 1600 96 Room Air 09/30 1600 98.3 99 20 106/78 96 Room Air 09/30 1319 98.7 87 20 104/69 98 Room Air 09/30 1158 98.9 111 18 91/80 94 Room Air Intake & Output 10/01 1600 10/01 0800 10/01 0000 09/30 1600 09/30 0800 09/30 0000 Intake Total 903 1408 3919 Output Total 375 290 Balance 528 1118 3919 Intake, Blood 633 639 Product Intake, IV 768 935 1127 Intake, Oral 350 400 200 Number 2 3 Bowel Movements Output, Urine 375 290 Patient 191 lb 190 lb Weight Weight Bed scale Bed scale Measurement Method Physical Exam: nad proturbernt abdomen right 5th toe purple with some ischemic changes of lateral foot. pitting edema on the foot and leg. foot is warm and well perfused. pedal pulses in right fooot not palpable. Assessment/Plan Assessment/Plan 67 y/o m w/ metastatic cancer, AAA, recent stroke/tia, pe's, with gi bleed on eliquis-- consulted for evaluation of ischemic right 5th toe and possible ivc filter placement. -- gi bleed in setting of supratherapeutic INR while on eliquis. pt likely has degree of hepatic dysfuction related to liver mets. agree with considering alternative ac. if pt can not tolerate AC then would place ivc filter given recent pe's and high risk for further embolism given active mets. --regarding the toe would have goals of discussion with patient and oncology. unclear what patients life expectancy is at this point and with his elevated troponin/lactate he would be high risk for any intervention. no need for urgent intervention. no rest pain. Consult Acknowledgment - Thank you for your consult request.
--- NOTE | 2017-10-01 12:11 | PN- Gastroenterology ---
Assessment/Plan GI Assessment/Recommendations: ASSESSMENT: 1. Lower GI Bleed -- None Further after reversal of coagulopathy 2. History of Pulmonary Emboli -- Family does not want central line. Certainly will not want IVC filter. Can consider starting Lovenox this evening. However, must monitor for GI Bleed. 3. Metastatic Ca -- Probable Pancreatic Primary 4. Tense Ascites -- ? due to hepatic failure to due replacement of hepatic parenchyma by tumor or due to malignant ascites. Likely responsible for abdomnal pain. 5. Anemia -- Stable H/H after transfusion. 6. Disposition -- Consult Dr. Curry who patient is schedule to see as outpatient. Would also consider having patient seen by palliative care as consult. Patient with very poor performance status. RECOMMENDATIONS: 1. Large Volume Paracentesis 2. Palliative Care Consult 3. Consult Dr. Curry 4. Continue Serial H/H 5. Transfuse as needed to keep Hgb above 7 6. Patient may start clear liquid diet and advance as tolerated Subjective Subjective: Patient denies abdominal pain currently. No nausea, vomiting. No further hematochezia. Has had increased abdominal distension. Objective Vital Signs and I&Os Vital Signs Date Time Temp Pulse Resp B/P B/P Pulse O2 O2 Flow FiO2 Mean Ox Delivery Rate 10/01 0800 Room Air 10/01 0800 96.8 104 18 94/70 95 Room Air 10/01 0400 97 Room Air 10/01 0000 95 Room Air 10/01 0000 98.7 98 28 96/60 95 Room Air 09/30 1600 96 Room Air 09/30 1600 98.3 99 20 106/78 96 Room Air 09/30 1319 98.7 87 20 104/69 98 Room Air 09/30 1158 98.9 111 18 91/80 94 Room Air Intake & Output 10/01 1600 10/01 0400 09/30 1600 09/30 0400 09/29 1600 09/29 0400 Intake Total 903 1408 3919 Output Total 375 290 Balance 528 1118 3919 Intake, Blood 633 639 Product Intake, IV 122 632 5282 Intake, Oral 350 400 200 Number 2 3 Bowel Movements Output, Urine 375 290 Patient 191 lb 190 lb Weight Weight Bed scale Bed scale Measurement Method Physical Exam General Appearance: alert, awake, cachetic Head: temporal wasting Respiratory: wheezing Cardiovascular: regular rate/rhythm Abdomen: distention, decreased, but active bowel sounds, mild tenderness, ascites is present Extremities: 3+ edema Neurologic/Psychiatric: alert, oriented x 3 Skin: jaundice, pallor Current Medications: Current Medications Sig/Lola Start time Last Medication Dose Route Stop Time Status Admin Atorvastatin Calcium 40 MG DAILY 10/01 09 AC 10/01 PO 09 Ergocalciferol 50,000 IU QTUES 10/01 09 AC 10/01 PO 0905 Ferrous Sulfate 325 MG DAILY 10/01 09 AC 10/01 PO 0906 Omeprazole 20 MG DAILY 09/30 1424 DC 09/30 PO 1452 Pantoprazole Sodium 40 MG BID 09/30 1446 AC 10/01 IV 0906 Pantoprazole Sodium 40 MG Q5H 09/30 1015 DC 09/30 Sodium Chloride 100 ML IV 1030 Sodium Chloride 2,000 MG TID 09/30 2100 AC 10/01 PO 0905 Sodium Chloride 1,000 ML Q13H 09/30 1845 AC 10/01 IV 0912 Results Pertinent Lab Results: Laboratory Tests 10/01 10/01 10/01 1055 0900 0610 Chemistry Lactic Acid (0.7 - 2.1 mmol/L) Cancelled 5.5 H 5.1 H 10/01 10/01 0530 0300 Chemistry Lactic Acid (0.7 - 2.1 mmol/L) 5.1 H Urines Urinalysis MOD H Urine Color (YEL,AMB,STR) BLDY H Urine Clarity (CLEAR) HAZY H Urine pH (5.0 - 8.0) 6.0 Ur Specific [place] (1.001 - 1.035) 1.025 Urine Protein (NEG,<30 MG/DL) 100 H Urine Ketones (NEG) TRACE H Urine Nitrite (NEG) NEG Urine Bilirubin (NEG) POS@ICTO H Urine Urobilinogen (0.1 - 1.0 EU/dl) 1.0 Ur Leukocyte Esterase (NEG) NEG Ur Microscopic SEDIMENT EXAMINED Urine RBC (0 - 5 /HPF) PACKD H Urine WBC (0 - 2 /HPF) 1-3 H Ur Epithelial Cells (NONE,FEW) RARE Urine Bacteria (NEG/NONE) MANY H Granular Casts (NONE /LPF) 5-10 H Urine Hemoglobin (NEG) LARGE H Urine Glucose (N MG/DL) NEG 10/01 10/01 09/30 0300 0005 2300 Chemistry Sodium (137 - 145 mmol/L) 129 L 130 L Potassium (3.5 - 5.1 mmol/L) 4.6 Chloride (98 - 107 mmol/L) 98 Carbon Dioxide (22 - 30 mmol/L) 20 L Anion Gap (5 - 16) 12 BUN (9 - 20 mg/dL) 37 H Creatinine (0.7 - 1.2 mg/dL) 1.0 Estimated GFR (>60 ml/min) > 60 Glucose (65 - 99 mg/dL) 60 L Lactic Acid (0.7 - 2.1 mmol/L) 5.0 H Cancelled Calcium (8.4 - 10.2 mg/dL) 7.7 L Phosphorus (2.5 - 4.5 mg/dL) 3.9 Magnesium (1.6 - 2.3 mg/dL) 2.1 Total Bilirubin (0.2 - 1.3 mg/dL) 4.8 H Direct Bilirubin (< 0.4 mg/dL) 3.7 H AST (17 - 59 U/L) 322 H ALT (21 - 72 U/L) 114 H Albumin (3.5 - 5.0 g/dL) 2.1 L Coagulation PT (9.4 - 12.5 SEC) 20.1 H INR (0.90 - 1.17) 1.83 H Hematology CBC w Diff MAN DIFF ORDERED WBC (4.8 - 10.8 /CUMM) 17.1 H RBC (4.70 - 6.10 /CUMM) 4.30 L Hgb (14.0 - 18.0 G/DL) 11.5 L Hct (42 - 52 %) 34.8 L MCV (80.0 - 94.0 FL) 80.8 MCH (27.0 - 31.0 PG) 26.7 L MCHC (33.0 - 37.0 G/DL) 33.0 RDW (11.5 - 14.5 %) 20.8 H Plt Count (130 - 400 /CUMM) 60 L MPV (7.4 - 10.4 FL) 10.6 H Gran % (42.2 - 75.2 %) 86.5 H Lymphocytes % (20.5 - 51.1 %) 7.2 L Monocytes % (1.7 - 9.3 %) 6.1 Eosinophils % (0 - 5 %) 0.1 Basophils % (0.0 - 2.0 %) 0.1 Absolute Granulocytes (1.4 - 6.5 /CUMM) 14.8 H Segmented Neutrophils (42.2 - 75.2 %) 94 H Absolute Lymphocytes (1.2 - 3.4 /CUMM) 1.2 Lymphocytes (20.5 - 51.1 %) 3 L Monocytes (1.7 - 9.3 %) 3 Absolute Monocytes (0.10 - 0.60 /CUMM) 1.0 H Absolute Eosinophils (0.0 - 0.7 /CUMM) 0 Absolute Basophils (0.0 - 0.2 /CUMM) 0 Platelet Estimate (ADEQUATE) DECREASED Polychromasia 1+ Anisocytosis 1+ Microcytic Cells 1+ Ovalocytes FEW Other Body Source Fld Total RBCs Counted (%) 100 09/30 Chemistry Sodium (137 - 145 mmol/L) 127 L Lactic Acid (0.7 - 2.1 mmol/L) 5.6 H Troponin I (<0.11 ng/ml) 2.27 *H Hematology CBC w Diff NO MAN DIFF REQ WBC (4.8 - 10.8 /CUMM) 18.1 H RBC (4.70 - 6.10 /CUMM) 4.09 L Hgb (14.0 - 18.0 G/DL) 10.9 L Hct (42 - 52 %) 33.1 L MCV (80.0 - 94.0 FL) 80.9 MCH (27.0 - 31.0 PG) 26.7 L MCHC (33.0 - 37.0 G/DL) 33.0 RDW (11.5 - 14.5 %) 21.3 H Plt Count (130 - 400 /CUMM) 67 L MPV (7.4 - 10.4 FL) 10.4 Gran % (42.2 - 75.2 %) 86.3 H Lymphocytes % (20.5 - 51.1 %) 7.8 L Monocytes % (1.7 - 9.3 %) 5.7 Eosinophils % (0 - 5 %) 0 Basophils % (0.0 - 2.0 %) 0.2 Absolute Granulocytes (1.4 - 6.5 /CUMM) 15.6 H Absolute Lymphocytes (1.2 - 3.4 /CUMM) 1.4 Absolute Monocytes (0.10 - 0.60 /CUMM) 1.0 H Absolute Eosinophils (0.0 - 0.7 /CUMM) 0 Absolute Basophils (0.0 - 0.2 /CUMM) 0 09/30 09/30 1731 1418 Chemistry Sodium (137 - 145 mmol/L) 127 L 127 L Potassium (3.5 - 5.1 mmol/L) 5.0 Chloride (98 - 107 mmol/L) 96 L Carbon Dioxide (22 - 30 mmol/L) 19 L Anion Gap (5 - 16) 11 BUN (9 - 20 mg/dL) 43 H Creatinine (0.7 - 1.2 mg/dL) 1.0 Estimated GFR (>60 ml/min) > 60 BUN/Creatinine Ratio (7 - 25 %) 43.0 H Lactic Acid (0.7 - 2.1 mmol/L) 5.1 H 4.6 H Troponin I (<0.11 ng/ml) 3.11 *H Coagulation PT (9.4 - 12.5 SEC) 19.8 H INR (0.90 - 1.17) 1.81 H Hematology CBC w Diff NO MAN DIFF REQ NO MAN DIFF REQ WBC (4.8 - 10.8 /CUMM) 17.2 H 16.8 H RBC (4.70 - 6.10 /CUMM) 4.01 L 4.45 L Hgb (14.0 - 18.0 G/DL) 10.7 L 11.8 L Hct (42 - 52 %) 32.2 L 35.8 L MCV (80.0 - 94.0 FL) 80.4 80.3 MCH (27.0 - 31.0 PG) 26.8 L 26.5 L MCHC (33.0 - 37.0 G/DL) 33.3 33.0 RDW (11.5 - 14.5 %) 20.8 H 20.8 H Plt Count (130 - 400 /CUMM) 63 L 74 L MPV (7.4 - 10.4 FL) 10.0 10.3 Gran % (42.2 - 75.2 %) 86.3 H 87.1 H Lymphocytes % (20.5 - 51.1 %) 7.7 L 7.3 L Monocytes % (1.7 - 9.3 %) 5.5 5.5 Eosinophils % (0 - 5 %) 0 0 Basophils % (0.0 - 2.0 %) 0.5 0.1 Absolute Granulocytes (1.4 - 6.5 /CUMM) 14.8 H 14.7 H Absolute Lymphocytes (1.2 - 3.4 /CUMM) 1.3 1.2 Absolute Monocytes (0.10 - 0.60 /CUMM) 0.9 H 0.9 H Absolute Eosinophils (0.0 - 0.7 /CUMM) 0 0 Absolute Basophils (0.0 - 0.2 /CUMM) 0.1 0 09/30 09/30 09/30 1151 1126 1010 Chemistry Lactic Acid (0.7 - 2.1 mmol/L) 4.3 H Coagulation PT (9.4 - 12.5 SEC) 81.2 *H INR (0.90 - 1.17) 7.30 *H APTT (25 - 37 SEC) 70 H Urines Urinalysis LIGHT H Urine Color (YEL,AMB,STR) YEL Urine Clarity (CLEAR) HAZY H Urine pH (5.0 - 8.0) 6.0 Ur Specific [place] (1.001 - 1.035) 1.025 Urine Protein (NEG,<30 MG/DL) TRACE H Urine Ketones (NEG) NEG Urine Nitrite (NEG) NEG Urine Bilirubin (NEG) POS@ICTO H Urine Urobilinogen (0.1 - 1.0 EU/dl) 1.0 Ur Leukocyte Esterase (NEG) NEG Ur Microscopic SEDIMENT EXAMINED Urine RBC (0 - 5 /HPF) 1-3 Urine WBC (0 - 2 /HPF) 1-3 H Ur Epithelial Cells (NONE,FEW) FEW Urine Bacteria (NEG/NONE) RARE H Hyaline Casts (0/LPF) RARE H Granular Casts (NONE /LPF) 1-3 H Urine Mucus (FEW,NONE) FEW Urine Hemoglobin (NEG) NEG Urine Glucose (N MG/DL) NEG 09/30 0834 Chemistry Sodium (137 - 145 mmol/L) 124 L Potassium (3.5 - 5.1 mmol/L) 5.5 H Chloride (98 - 107 mmol/L) 92 L Carbon Dioxide (22 - 30 mmol/L) 22 Anion Gap (5 - 16) 10 BUN (9 - 20 mg/dL) 48 H Creatinine (0.7 - 1.2 mg/dL) 1.3 H Estimated GFR (>60 ml/min) 55 L BUN/Creatinine Ratio (7 - 25 %) 36.9 H Glucose (65 - 99 mg/dL) 73 Lactic Acid (0.7 - 2.1 mmol/L) 5.0 H Calcium (8.4 - 10.2 mg/dL) 7.6 L Magnesium (1.6 - 2.3 mg/dL) 2.2 Total Bilirubin (0.2 - 1.3 mg/dL) 3.2 H AST (17 - 59 U/L) 311 H ALT (21 - 72 U/L) 124 H Alkaline Phosphatase (< 127 U/L) 788 H Troponin I (<0.11 ng/ml) 3.87 *H Total Protein (6.3 - 8.2 g/dL) 5.0 L Albumin (3.5 - 5.0 g/dL) 1.9 L Globulin (1.9 - 4.2 gm/dL) 3.1 Albumin/Globulin Ratio (1.1 - 2.2 %) 0.6 L Hematology CBC w Diff MAN DIFF ORDERED WBC (4.8 - 10.8 /CUMM) 17.6 H RBC (4.70 - 6.10 /CUMM) 4.92 Hgb (14.0 - 18.0 G/DL) 13.2 L Hct (42 - 52 %) 39.3 L MCV (80.0 - 94.0 FL) 79.9 L MCH (27.0 - 31.0 PG) 26.7 L MCHC (33.0 - 37.0 G/DL) 33.4 RDW (11.5 - 14.5 %) 20.6 H Plt Count (130 - 400 /CUMM) 82 L MPV (7.4 - 10.4 FL) 10.5 H Gran % (42.2 - 75.2 %) 86.6 H Lymphocytes % (20.5 - 51.1 %) 8.9 L Monocytes % (1.7 - 9.3 %) 4.0 Eosinophils % (0 - 5 %) 0 Basophils % (0.0 - 2.0 %) 0.5 Absolute Granulocytes (1.4 - 6.5 /CUMM) 15.2 H Absolute Lymphocytes (1.2 - 3.4 /CUMM) 1.6 Absolute Monocytes (0.10 - 0.60 /CUMM) 0.7 H Absolute Eosinophils (0.0 - 0.7 /CUMM) 0 Absolute Basophils (0.0 - 0.2 /CUMM) 0.1 Platelet Estimate (ADEQUATE) DECREASED Polychromasia 1+ Poikilocytosis 2+ Anisocytosis 1+
[2017-10-01 16:00] VITALS: BP 98/62
[2017-10-01 18:02] LABS: ABSOLUTE BASOPHIL COUNT 0 /CUMM (0.0-0.2); ABSOLUTE EOSINOPHIL COUNT 0 /CUMM (0.0-0.7); ABSOLUTE GRANULOCYTE CT 16.1 /CUMM (1.4-6.5); ABSOLUTE LYMPH COUNT 1.2 /CUMM (1.2-3.4); ABSOLUTE MONOCYTE COUNT 0.3 /CUMM (0.10-0.60); BASOPHIL % 0.1 % (0.0-2.0); EOSINOPHIL % 0 % (0-5); GRANULOCYTE % 91.4 % (42.2-75.2); MEAN CORPUSCULAR HGB 26.8 PG (27.0-31.0); MEAN CORPUSCULAR HGB CONC 33.5 G/DL (33.0-37.0); MEAN PLATELET VOLUME 9.1 FL (7.4-10.4); RBC DISTRIBUTION WIDTH 21.8 % (11.5-14.5)
[2017-10-01 18:19] LABS: HEMATOCRIT 34.7 % (42-52); PLATELET COUNT 41 /CUMM (130-400); RED BLOOD CELL CT 4.33 /CUMM (4.70-6.10); WHITE BLOOD CELL COUNT 17.6 /CUMM (4.8-10.8)
--- NOTE | 2017-10-01 21:31 | Cons- Palliative Care ---
General Information and HPI Consulting Request Date of Consult: 10/01/17 Requested By: Darron VIDAL,Evrnon Reason for Consult: non-pain symptom mgmt, care/transition planning, eval for hospice care Source patient, old records Exam Limitations clinical condition History of Present Illness: 67M identified with GI bleeding. Workup revealed extensive metastatic disease - source likely to be colorectal. Patient is currently without complaints. Discussion with housestaff held to address approach to patient's care in setting of advanced illness. Allergies/Medications Allergies: Coded Allergies: No Known Allergies (09/15/17) Home Med List: Apixaban (Eliquis) 5 MG TABLET 1 TAB PO BID Pulmonary Embolism Aspirin (Ecotrin*) 81 MG TABLET.DR 1 TAB PO DAILY HEART (Reported) Atorvastatin Calcium 40 MG TABLET 1 TAB PO DAILY Heart Health Ergocalciferol (Vitamin D2) (Vitamin D2) 50,000 UNIT CAPSULE 1 CAP PO QTUES SUPPLEMENT (Reported) Ferrous Sulfate 325 MG (65 MG IRON) TABLET 1 TAB PO DAILY Supplement Metoprolol Tartrate 25 MG TABLET 1 TAB PO BID Heart Health Omeprazole 20 MG CAPSULE.DR 1 CAP PO DAILY GERD (Reported) Sodium Chloride 1 GRAM TABLET 2,000 MG PO TID Hyponatremia Tramadol HCl (Ultram) 50 MG TABLET 1 TAB PO TIDPRN PAIN (Reported) Current Medications: Current Medications Sig/Lola Start time Last Medication Dose Route Stop Time Status Admin Atorvastatin Calcium 40 MG DAILY 10/01 0900 DCD 10/02 PO 0829 Calcitriol 0.25 MCG DAILY 10/02 0906 DC PO Ergocalciferol 50,000 IU QTUES 10/01 0900 DC 10/01 PO 0905 Ferrous Sulfate 325 MG DAILY 10/01 0900 DCD 10/02 PO 0829 Pantoprazole Sodium 40 MG BID 09/30 1446 DCD 10/02 IV 0829 Sodium Chloride 2,000 MG TID 09/30 2100 DC 10/01 PO 2120 Sodium Chloride 1,000 ML Q13H 09/30 1845 DCD 10/02 IV 0103 Review of Systems Review of Systems: unable to obtain ROS Past History Medical History Blood Transfusion Hx No Neurological: TIA EENT: NONE Cardiovascular: AORTIC ANEURYSM Respiratory: NONE Gastrointestinal: GERD Hepatic: NONE Renal: NONE Musculoskeletal: NONE Psychiatric: NONE Endocrine: NONE Blood Disorders: PE Cancer(s): colon/rectal cancer, LESIONS ON LIVER,KIDNEY, PANCREATIS 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 Home Who Do You Live With? spouse Services at Home: None Primary Language: Armenian Smoking Status: Current Everyday Smoker ETOH Use: denies use Illicit Drug Use: denies illicit drug use Karnofsky Performance Scale: 20 Living Will? unknown Power of Infirmary Attendant/HCP? unknown Functional Ability ADLs Independent: dressing, eating, toileting, bathing. Ambulation: independent IADLs Independent: finances. 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 Exam & Diagnostic Data Last 24 Hrs of Vitals/I&Os: Vital Signs Date Time Temp Pulse Resp B/P B/P Pulse O2 O2 Flow FiO2 Mean Ox Delivery Rate 10/02 0800 96 Room Air Room Air 10/02 0800 98.8 118 28 100/66 96 Room Air Room Air 10/02 0400 94 Room Air 10/02 0000 95 Room Air 10/02 0000 99.2 110 28 100/70 95 Room Air Intake & Output 10/02 1600 10/02 0800 05 0000 Intake Total 646 631 885 Output Total 100 200 300 Balance 546 431 585 Intake, IV 546 631 525 Intake, Oral 100 360 Number 1 1 Bowel Movements Output, Urine 100 200 300 Physical Exam: elderly , ill appering, in bed, NAD HEENT - NCAT, atraumatic Neck - supple Lung - CTA CV - RRR Abd - soft Extr - +edema Neuro - awake, alert, speech fluent Assessment/Plan Assessment 67M w/ metastatic colorectal cancer, now w/ GI bleeding Patient's Condition: poor Prognosis: poor Is Patient Decisional? limited Case Discussed With: patient, house staff Other Recommendations: 1. Identify reasonable, medically indicated treatment options that team wishes to offer - these can be categorized on a continuum scale from comfort/symptom relieving -> more agressive, treatment oriented 2. In parallel, try to ascertain from pt/family what is important to them (along the same continuum as above) 3. Match treatment offerings with what is preferred by patient/family 4. Given patient's advanced stage of disease, comfort-only is a very reasonable option, but should some treatment be valued by patient, it is reasonable to consider that option as well. 5. Consider consultation with hospice. Consult Acknowledgment - Thank you for your consult request.
--- NOTE | 2017-10-01 22:12 | ULTRASOUND REPORT ---
EXAMINATION: US ABDOMEN LIMITED CLINICAL INFORMATION: Assess ascites.. COMPARISON: None TECHNIQUE: 4 quadrant ultrasound study of abdomen. FINDINGS: Trace ascites present in the right upper quadrant and left upper quadrant. No ascites visualized in the left lower quadrant. Largest collection is in the right lower quadrant, around the tip the liver. This measures about 5.5 cm AP. IMPRESSION: There is abdominal ascites present. Largest pocket in right lower quadrant.
[2017-10-02] VITALS: BP 100/70
[2017-10-02 03:50] LABS: ABSOLUTE BASOPHIL COUNT 0.1 /CUMM (0.0-0.2); ABSOLUTE EOSINOPHIL COUNT 0 /CUMM (0.0-0.7); ABSOLUTE GRANULOCYTE CT 16.1 /CUMM (1.4-6.5); ABSOLUTE LYMPH COUNT 1.4 /CUMM (1.2-3.4); ABSOLUTE MONOCYTE COUNT 0.8 /CUMM (0.10-0.60); BASOPHIL % 0.4 % (0.0-2.0); EOSINOPHIL % 0 % (0-5); GRANULOCYTE % 87.5 % (42.2-75.2); MEAN CORPUSCULAR HGB 26.5 PG (27.0-31.0); MEAN CORPUSCULAR HGB CONC 32.8 G/DL (33.0-37.0); MEAN CORPUSCULAR VOLUME 80.9 FL (80.0-94.0); MEAN PLATELET VOLUME 9.6 FL (7.4-10.4); RBC DISTRIBUTION WIDTH 22.8 % (11.5-14.5); RED BLOOD CELL CT 4.45 /CUMM (4.70-6.10); WHITE BLOOD CELL COUNT 18.4 /CUMM (4.8-10.8)
[2017-10-02 03:59] LABS: PT 23.7 SEC (9.4-12.5); PTT 43 SEC (25-37)
[2017-10-02 04:08] LABS: PLATELET COUNT 31 /CUMM (130-400)
--- NOTE | 2017-10-02 07:10 | PN- Resident CRCU ---
Ra VIDAL,[facility] 10/02/17 0709: Subjective HPI/CRCU Issues: Spoke with Heme-onc this AM. Family wound like inhouse hospice. Declining IVC filter. Ok with paracentesis. Objective Vital Signs & I&O Last 8 Hrs of Vitals and I&O: Laboratory Tests 10/02/17 0630: Lactic Acid Cancelled 10/02/17 0331: Anion Gap 16, Estimated GFR > 60, Glucose 74, Lactic Acid 6.6 H, Calcium 7.4 L , Phosphorus 3.7, Magnesium 2.2, Total Bilirubin 5.4 H, Direct Bilirubin 4.0 H , GGT 1025 H, AST 341 H, ALT 124 H, Albumin 2.0 L, PT 23.7 H, INR 2.16 H, APTT 43 H, CBC w Diff MAN DIFF ORDERED, RBC 4.45 L, MCV 80.9, MCH 26.5 L, MCHC 32.8 L, RDW 22.8 H, MPV 9.6, Gran % 87.5 H, Lymphocytes % 7.7 L, Monocytes % 4.4, Eosinophils % 0, Basophils % 0.4, Absolute Granulocytes 16.1 H , Segmented Neutrophils 96 H, Absolute Lymphocytes 1.4, Lymphocytes 3 L, Monocytes 1 L, Absolute Monocytes 0.8 H, Absolute Eosinophils 0, Absolute Basophils 0.1, Platelet Estimate DECREASED, Polychromasia 1+, Hypochromic- Microcytic 1+, Poikilocytosis 1+, Anisocytosis 1+, Microcytic Cells 1+, Ovalocytes 1+, Fld Total RBCs Counted 100 10/01/17 2300: CBC w Diff Cancelled, WBC Cancelled, RBC Cancelled, Hgb Cancelled, Hct Cancelled , MCV Cancelled, MCH Cancelled, MCHC Cancelled, RDW Cancelled, Plt Count Cancelled, MPV Cancelled 10/01/17 1745: CBC w Diff MAN DIFF ORDERED, RBC 4.33 L, MCV 80.0, MCH 26.8 L, MCHC 33.5, RDW 21.8 H, MPV 9.1, Gran % 91.4 H, Lymphocytes % 7.0 L, Monocytes % 1.5 L, Eosinophils % 0, Basophils % 0.1, Absolute Granulocytes 16.1 H, Segmented Neutrophils 92 H, Absolute Lymphocytes 1.2, Lymphocytes 5 L, Monocytes 3, Absolute Monocytes 0.3, Absolute Eosinophils 0, Absolute Basophils 0, Platelet Estimate DECREASED, Polychromasia 1+, Anisocytosis 2+ 10/01/17 1540: 10/01/17 1225: Lactic Acid 6.1 H Vital Signs Date Time Temp Pulse Resp B/P B/P Pulse O2 O2 Flow FiO2 Mean Ox Delivery Rate 10/02 0400 94 Room Air Exam General Appearance: no apparent distress, alert, awake Current Medications: Current Medications Sig/Lola Start time Last Medication Dose Route Stop Time Status Admin Atorvastatin Calcium 40 MG DAILY 10/01 09 DCD 10/02 PO 0829 Calcitriol 0.25 MCG DAILY 10/02 0906 DC PO Ergocalciferol 50,000 IU QTUES 10/01 899 DC 10/01 PO 0905 Ferrous Sulfate 325 MG DAILY 10/01 09 DCD 10/02 PO 0829 Pantoprazole Sodium 40 MG BID 09/30 1446 DCD 10/02 IV 0829 Sodium Chloride 2,000 MG TID 09/30 2100 DC 10/01 PO 2120 Sodium Chloride 1,000 ML Q13H 09/30 1845 DCD 10/02 IV 0103 Impression/Plan Impression/Problem List Impression: A: 67-year-old male with a past medical history of history metastatic cancer, AAA, and GERD recently discharged on September 20 for left parietal CVA, and bilateral PE discharge on Eliquis presenting with hematochezia in the setting of coagulopathy and active and elliquis/aspirin use. P: -Hematochezia. -Coagulopathy -Metastatic cancer -Elevated troponins -Acute kidney injury -Hyperlactetemia -Thrombocytopenia -Transaminitis -Hyperbilirubinemia -History of chronic disease: CVA, bilateral PEs, AAA, PAD, malignancy with metastasis, hyponatremia P: #GI Bleed in the setting of eliquis, aspirin and thrombocytopenia Patient was recently discharged on September 20 with Eliquis for bilateral PE and left parietal CVA. He was found to be not suitable for TPA. Echo study that was performed did not reveal any intracardiac shunt. Chest CTA usually showed bilateral pulmonary emboli without right heart strain. LE DVT was negative. Patient reports that since last discharge, he has been expressing diarrhea was initially started on Imodium and then switched to Lomotil. On the morning of presentation the patient's spouse reported ana blood in the patient's stool and around the toilet. In the ED he received vitamin K, FFP, and K-centra. IV protonix and NS 1L x3 were also given. His initial Inr was 7.3. Apixaban and aspirin were stopped. H/H was 13.2/39.3 -The patient and family have decided on inpatient hospice. -current INR 2.16. s/p 4 units ffp thus far. -Current H/H of 11.8/36, he continues to have dark ana bloody stool -monitoring cbc qX -cont IV Protonix twice a day -Continue iron sulfate -Continue IV fluids -cont monitoring cbc qX. hgb goal >7 -Holding all anticoagulation at this time including Alps #bilateral PE Unclear etiology. Possibly due to DVT which had embolized previously missed as her sounds Doppler was negative during last admission. Or possibly spontaneous give his high risk of coagulation. -Currently holding any anti-coagulation due to continued ana bloody stools -Patient family have opted not to get IVC filter #metastatic cancer Metastatic cancer (Liver/pancreas/lung/veretebrae, ?kidney) with recent preliminary biopsy suggestive of primary pancreatic cancer. Imaging reveals pancreatic mass with current CA-A levels >700k suggesting pancreatic cancer as the primary source. -Family is requesting in-house hospice #hepatic dysfunction from most likely metastatic cancer His INR and hepatic dysfunction is chronic and most likely secondary to metastatic cancer His lactate consistently continues to be elevated most likely due hepatic dysfunction -cont to monitor #elevated bilirubin Elevated bilirubin is most likely secondary to possible gallstones Given poor prognosis and no sx, no surgical intervention at this time. -Will consider right upper quadrant ultrasound and possible ursodeoxycholic acid #leukocytosis Leukcocytosis of unclear etiology Patient continues to be afebrile and does have elevated lactic acid but cultures have been negative thus far -will cont monitoring cultures #hyponatremia The patient continues to have hyponatremia which is asymptomatic. Likely chronic in nature due to possible SIADH from underlying malignancy. Current Na 137 (129 yesterday) -stopped NaCl tablets -cont NS @ 75 #eletravated troponins Initial troponin 3.87 and then down trended. -Most likely demand ischemia -Continue cardiology recommendations #Vascular disease of lower extremities Gangrenous right fifth toe and lateral foot on exam. Previous arterial doppler showed extensive atherosclerotic disease of lower extremity peripheral vessels. Was scheduled for f/u with Dr. Abernathy. -No immediate intervention of his toe/foot at this time -Plan for possible IVC filter tomorrow #CHRIS Initial Cr 1.3, Baseline Cr 0.7 -currently resolved after fluids Mora cathther DVT prophylaxis: none. INR in therapuetic range due to hepatic dysfunction. Will stop ALPS for risk of DVT given PE. CODE STATUS: DNR/DNI, no pressors, no central line or heroic measures. Going to hospice Problem List: 1. Pulmonary emboli 2. GI bleed 3. Pancreatic cancer Pain Ratin Tomorrow's Labs & Rationales: icu cbc Plan DVT/Prophylaxis: none. liver coagulopathy INR 2.0+ Archie Landis 10/02/17 1255: Attending MD Review Statement Attending Sign Off Attending Cosign Statement: I have: examined this patient, reviewed [facility] EMR data, discussd w/resident/PA/ RV PARTS AND SERVICE DIRECTOR, discussed mgmt plan w/CM, discussed mgmt plan w/pt, agreed w/resident/PA/RV PARTS AND SERVICE DIRECTOR. Other Findings: d/w pt and significant other the hospice option. going to consult hospice to come and evaluate him for hospice. Pt likely will be a candidate for inpatient hospice.
--- NOTE | 2017-10-02 07:36 | Cons- Oncology ---
General Information and HPI Consulting Request Date of Consult: 10/02/17 Requested By: Darron VIDAL,[place] History of Present Illness: 67-year-old man was scheduled to see me in the office is now admitted with hypotension and hematochezia. Patient recently was discovered have at scan changes consistent with metastatic hepatic disease and a pancreas mass. Liver biopsy was performed. Patient recently had a TIA was placed on Eliquis. Patient is not complaining of abdominal pain. Allergies/Medications Allergies: Coded Allergies: No Known Allergies (09/15/17) Home Med List: Apixaban (Eliquis) 5 MG TABLET 1 TAB PO BID Pulmonary Embolism Aspirin (Ecotrin*) 81 MG TABLET.DR 1 TAB PO DAILY HEART (Reported) Atorvastatin Calcium 40 MG TABLET 1 TAB PO DAILY Heart Health Ergocalciferol (Vitamin D2) (Vitamin D2) 50,000 UNIT CAPSULE 1 CAP PO QTUES SUPPLEMENT (Reported) Ferrous Sulfate 325 MG (65 MG IRON) TABLET 1 TAB PO DAILY Supplement Metoprolol Tartrate 25 MG TABLET 1 TAB PO BID Heart Health Omeprazole 20 MG CAPSULE.DR 1 CAP PO DAILY GERD (Reported) Sodium Chloride 1 GRAM TABLET 2,000 MG PO TID Hyponatremia Tramadol HCl (Ultram) 50 MG TABLET 1 TAB PO TIDPRN PAIN (Reported) Current Medications: Current Medications Sig/Lola Start time Last Medication Dose Route Stop Time Status Admin Atorvastatin Calcium 40 MG DAILY 10/01 0900 AC 10/01 PO 0906 Ergocalciferol 50,000 IU QTUES 10/01 0900 AC 10/01 PO 0905 Ferrous Sulfate 325 MG DAILY 10/01 0900 AC 10/01 PO 0906 Omeprazole 20 MG DAILY 09/30 1424 DC 09/30 PO 1452 Pantoprazole Sodium 40 MG BID 09/30 1446 AC 10/01 IV 2119 Sodium Chloride 2,000 MG TID 09/30 2100 AC 10/01 PO 2120 Sodium Chloride 1,000 ML Q13H 09/30 1845 AC 10/02 IV 0103 Review of Systems Review of Systems: Patient denies headaches or dizziness. She denies new shortness of breath cough chest pain or hemoptysis. Patient has increasing abdominal girth associated with pain. Patient denies further blood loss. Patient denies dysuria or hematuria. Patient denies bone aches or focal neurologic complaints. 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 Home Who Do You Live With? spouse Services at Home: None Primary Language: Romansh Smoking Status: Current Everyday Smoker ETOH Use: denies use Illicit Drug Use: denies illicit drug use Functional Ability ADLs Independent: dressing, eating, toileting, bathing. Ambulation: independent IADLs Independent: finances. Exam & Diagnostic Data Vital Signs and I&O Vital Signs Date Time Temp Pulse Resp B/P B/P Pulse O2 O2 Flow FiO2 Mean Ox Delivery Rate 10/02 0400 94 Room Air 10/02 0000 95 Room Air 10/02 0000 99.2 110 28 100/70 95 Room Air 10/01 2000 96 Room Air 10/01 1600 Room Air 10/01 1600 98.2 102 21 98/62 96 Room Air 10/01 1200 Room Air 10/01 1200 97.3 101 22 100/72 97 Room Air 10/01 0800 Room Air 10/01 0800 96.8 104 18 94/70 95 Room Air Intake & Output 10/02 0800 10/02 0000 10/01 1600 Intake Total 407 537 7681 Output Total 200 300 300 Balance 870 462 6384 Intake, Blood 369 Product Intake, IV 631 525 426 Intake, Oral 360 720 Number 1 1 Bowel Movements Output, Urine 200 300 300 Gen.: in NAD, cachectic ENT: Sclera icteric Chest: Decreased breath sounds Cor: RRR, no extra sounds Abdomen: Distended, tense ascites Extremities: Without clubbing, cyanosis, or asymmetric edema Neurology: Alert and oriented 3, no gross deficit Last 48 Hours of Lab Results: Laboratory Tests 10/02 10/02 0630 0331 Chemistry Sodium (137 - 145 mmol/L) 137 Potassium (3.5 - 5.1 mmol/L) 4.9 Chloride (98 - 107 mmol/L) 104 Carbon Dioxide (22 - 30 mmol/L) 17 L Anion Gap (5 - 16) 16 BUN (9 - 20 mg/dL) 40 H Creatinine (0.7 - 1.2 mg/dL) 1.1 Estimated GFR (>60 ml/min) > 60 Glucose (65 - 99 mg/dL) 74 Lactic Acid (0.7 - 2.1 mmol/L) Cancelled 6.6 H Calcium (8.4 - 10.2 mg/dL) 7.4 L Phosphorus (2.5 - 4.5 mg/dL) 3.7 Magnesium (1.6 - 2.3 mg/dL) 2.2 Total Bilirubin (0.2 - 1.3 mg/dL) 5.4 H AST (17 - 59 U/L) 341 H ALT (21 - 72 U/L) 124 H Albumin (3.5 - 5.0 g/dL) 2.0 L Coagulation PT (9.4 - 12.5 SEC) 23.7 H INR (0.90 - 1.17) 2.16 H APTT (25 - 37 SEC) 43 H Hematology CBC w Diff MAN DIFF ORDERED WBC (4.8 - 10.8 /CUMM) 18.4 H RBC (4.70 - 6.10 /CUMM) 4.45 L Hgb (14.0 - 18.0 G/DL) 11.8 L Hct (42 - 52 %) 36.0 L MCV (80.0 - 94.0 FL) 80.9 MCH (27.0 - 31.0 PG) 26.5 L MCHC (33.0 - 37.0 G/DL) 32.8 L RDW (11.5 - 14.5 %) 22.8 H Plt Count (130 - 400 /CUMM) 31 L MPV (7.4 - 10.4 FL) 9.6 Gran % (42.2 - 75.2 %) 87.5 H Lymphocytes % (20.5 - 51.1 %) 7.7 L Monocytes % (1.7 - 9.3 %) 4.4 Eosinophils % (0 - 5 %) 0 Basophils % (0.0 - 2.0 %) 0.4 Absolute Granulocytes (1.4 - 6.5 /CUMM) 16.1 H Segmented Neutrophils (42.2 - 75.2 %) 96 H Absolute Lymphocytes (1.2 - 3.4 /CUMM) 1.4 Lymphocytes (20.5 - 51.1 %) 3 L Monocytes (1.7 - 9.3 %) 1 L Absolute Monocytes (0.10 - 0.60 /CUMM) 0.8 H Absolute Eosinophils (0.0 - 0.7 /CUMM) 0 Absolute Basophils (0.0 - 0.2 /CUMM) 0.1 Platelet Estimate (ADEQUATE) DECREASED Polychromasia 1+ Hypochromic-Microcytic 1+ Poikilocytosis 1+ Anisocytosis 1+ Microcytic Cells 1+ Ovalocytes 1+ Other Body Source Fld Total RBCs Counted (%) 100 10/01 10/01 10/01 2300 1745 1540 Hematology CBC w Diff Cancelled MAN DIFF ORDERED WBC (4.8 - 10.8 /CUMM) Cancelled 17.6 H RBC (4.70 - 6.10 /CUMM) Cancelled 4.33 L Hgb (14.0 - 18.0 G/DL) Cancelled 11.6 L Hct (42 - 52 %) Cancelled 34.7 L MCV (80.0 - 94.0 FL) Cancelled 80.0 MCH (27.0 - 31.0 PG) Cancelled 26.8 L MCHC (33.0 - 37.0 G/DL) Cancelled 33.5 RDW (11.5 - 14.5 %) Cancelled 21.8 H Plt Count (130 - 400 /CUMM) Cancelled 41 L MPV (7.4 - 10.4 FL) Cancelled 9.1 Gran % (42.2 - 75.2 %) 91.4 H Lymphocytes % (20.5 - 51.1 %) 7.0 L Monocytes % (1.7 - 9.3 %) 1.5 L Eosinophils % (0 - 5 %) 0 Basophils % (0.0 - 2.0 %) 0.1 Absolute Granulocytes (1.4 - 6.5 /CUMM) 16.1 H Segmented Neutrophils (42.2 - 75.2 %) 92 H Absolute Lymphocytes (1.2 - 3.4 /CUMM) 1.2 Lymphocytes (20.5 - 51.1 %) 5 L Monocytes (1.7 - 9.3 %) 3 Absolute Monocytes (0.10 - 0.60 /CUMM) 0.3 Absolute Eosinophils (0.0 - 0.7 /CUMM) 0 Absolute Basophils (0.0 - 0.2 /CUMM) 0 Platelet Estimate (ADEQUATE) DECREASED Polychromasia 1+ Anisocytosis 2+ 10/01 10/01 10/01 10/01 1225 1055 0900 0610 Chemistry Lactic Acid (0.7 - 2.1 mmol/L) 6.1 H Cancelled 5.5 H 5.1 H 10/01 10/01 0530 0300 Chemistry Lactic Acid (0.7 - 2.1 mmol/L) 5.1 H Urines Urinalysis MOD H Urine Color (YEL,AMB,STR) BLDY H Urine Clarity (CLEAR) HAZY H Urine pH (5.0 - 8.0) 6.0 Ur Specific [place] (1.001 - 1.035) 1.025 Urine Protein (NEG,<30 MG/DL) 100 H Urine Ketones (NEG) TRACE H Urine Nitrite (NEG) NEG Urine Bilirubin (NEG) POS@ICTO H Urine Urobilinogen (0.1 - 1.0 EU/dl) 1.0 Ur Leukocyte Esterase (NEG) NEG Ur Microscopic SEDIMENT EXAMINED Urine RBC (0 - 5 /HPF) PACKD H Urine WBC (0 - 2 /HPF) 1-3 H Ur Epithelial Cells (NONE,FEW) RARE Urine Bacteria (NEG/NONE) MANY H Granular Casts (NONE /LPF) 5-10 H Urine Hemoglobin (NEG) LARGE H Urine Glucose (N MG/DL) NEG 10/01 10/01 09/30 0300 0005 2300 Chemistry Sodium (137 - 145 mmol/L) 129 L 130 L Potassium (3.5 - 5.1 mmol/L) 4.6 Chloride (98 - 107 mmol/L) 98 Carbon Dioxide (22 - 30 mmol/L) 20 L Anion Gap (5 - 16) 12 BUN (9 - 20 mg/dL) 37 H Creatinine (0.7 - 1.2 mg/dL) 1.0 Estimated GFR (>60 ml/min) > 60 Glucose (65 - 99 mg/dL) 60 L Lactic Acid (0.7 - 2.1 mmol/L) 5.0 H Cancelled Calcium (8.4 - 10.2 mg/dL) 7.7 L Phosphorus (2.5 - 4.5 mg/dL) 3.9 Magnesium (1.6 - 2.3 mg/dL) 2.1 Total Bilirubin (0.2 - 1.3 mg/dL) 4.8 H Direct Bilirubin (< 0.4 mg/dL) 3.7 H AST (17 - 59 U/L) 322 H ALT (21 - 72 U/L) 114 H Albumin (3.5 - 5.0 g/dL) 2.1 L Coagulation PT (9.4 - 12.5 SEC) 20.1 H INR (0.90 - 1.17) 1.83 H Hematology CBC w Diff MAN DIFF ORDERED WBC (4.8 - 10.8 /CUMM) 17.1 H RBC (4.70 - 6.10 /CUMM) 4.30 L Hgb (14.0 - 18.0 G/DL) 11.5 L Hct (42 - 52 %) 34.8 L MCV (80.0 - 94.0 FL) 80.8 MCH (27.0 - 31.0 PG) 26.7 L MCHC (33.0 - 37.0 G/DL) 33.0 RDW (11.5 - 14.5 %) 20.8 H Plt Count (130 - 400 /CUMM) 60 L MPV (7.4 - 10.4 FL) 10.6 H Gran % (42.2 - 75.2 %) 86.5 H Lymphocytes % (20.5 - 51.1 %) 7.2 L Monocytes % (1.7 - 9.3 %) 6.1 Eosinophils % (0 - 5 %) 0.1 Basophils % (0.0 - 2.0 %) 0.1 Absolute Granulocytes (1.4 - 6.5 /CUMM) 14.8 H Segmented Neutrophils (42.2 - 75.2 %) 94 H Absolute Lymphocytes (1.2 - 3.4 /CUMM) 1.2 Lymphocytes (20.5 - 51.1 %) 3 L Monocytes (1.7 - 9.3 %) 3 Absolute Monocytes (0.10 - 0.60 /CUMM) 1.0 H Absolute Eosinophils (0.0 - 0.7 /CUMM) 0 Absolute Basophils (0.0 - 0.2 /CUMM) 0 Platelet Estimate (ADEQUATE) DECREASED Polychromasia 1+ Anisocytosis 1+ Microcytic Cells 1+ Ovalocytes FEW Other Body Source Fld Total RBCs Counted (%) 100 09/30 09/30 2200 2000 Chemistry Sodium (137 - 145 mmol/L) 127 L Lactic Acid (0.7 - 2.1 mmol/L) 5.6 H Troponin I (<0.11 ng/ml) 2.27 *H Hematology CBC w Diff NO MAN DIFF REQ WBC (4.8 - 10.8 /CUMM) 18.1 H RBC (4.70 - 6.10 /CUMM) 4.09 L Hgb (14.0 - 18.0 G/DL) 10.9 L Hct (42 - 52 %) 33.1 L MCV (80.0 - 94.0 FL) 80.9 MCH (27.0 - 31.0 PG) 26.7 L MCHC (33.0 - 37.0 G/DL) 33.0 RDW (11.5 - 14.5 %) 21.3 H Plt Count (130 - 400 /CUMM) 67 L MPV (7.4 - 10.4 FL) 10.4 Gran % (42.2 - 75.2 %) 86.3 H Lymphocytes % (20.5 - 51.1 %) 7.8 L Monocytes % (1.7 - 9.3 %) 5.7 Eosinophils % (0 - 5 %) 0 Basophils % (0.0 - 2.0 %) 0.2 Absolute Granulocytes (1.4 - 6.5 /CUMM) 15.6 H Absolute Lymphocytes (1.2 - 3.4 /CUMM) 1.4 Absolute Monocytes (0.10 - 0.60 /CUMM) 1.0 H Absolute Eosinophils (0.0 - 0.7 /CUMM) 0 Absolute Basophils (0.0 - 0.2 /CUMM) 0 09/30 09/30 1731 1418 Chemistry Sodium (137 - 145 mmol/L) 127 L 127 L Potassium (3.5 - 5.1 mmol/L) 5.0 Chloride (98 - 107 mmol/L) 96 L Carbon Dioxide (22 - 30 mmol/L) 19 L Anion Gap (5 - 16) 11 BUN (9 - 20 mg/dL) 43 H Creatinine (0.7 - 1.2 mg/dL) 1.0 Estimated GFR (>60 ml/min) > 60 BUN/Creatinine Ratio (7 - 25 %) 43.0 H Lactic Acid (0.7 - 2.1 mmol/L) 5.1 H 4.6 H Troponin I (<0.11 ng/ml) 3.11 *H Coagulation PT (9.4 - 12.5 SEC) 19.8 H INR (0.90 - 1.17) 1.81 H Hematology CBC w Diff NO MAN DIFF REQ NO MAN DIFF REQ WBC (4.8 - 10.8 /CUMM) 17.2 H 16.8 H RBC (4.70 - 6.10 /CUMM) 4.01 L 4.45 L Hgb (14.0 - 18.0 G/DL) 10.7 L 11.8 L Hct (42 - 52 %) 32.2 L 35.8 L MCV (80.0 - 94.0 FL) 80.4 80.3 MCH (27.0 - 31.0 PG) 26.8 L 26.5 L MCHC (33.0 - 37.0 G/DL) 33.3 33.0 RDW (11.5 - 14.5 %) 20.8 H 20.8 H Plt Count (130 - 400 /CUMM) 63 L 74 L MPV (7.4 - 10.4 FL) 10.0 10.3 Gran % (42.2 - 75.2 %) 86.3 H 87.1 H Lymphocytes % (20.5 - 51.1 %) 7.7 L 7.3 L Monocytes % (1.7 - 9.3 %) 5.5 5.5 Eosinophils % (0 - 5 %) 0 0 Basophils % (0.0 - 2.0 %) 0.5 0.1 Absolute Granulocytes (1.4 - 6.5 /CUMM) 14.8 H 14.7 H Absolute Lymphocytes (1.2 - 3.4 /CUMM) 1.3 1.2 Absolute Monocytes (0.10 - 0.60 /CUMM) 0.9 H 0.9 H Absolute Eosinophils (0.0 - 0.7 /CUMM) 0 0 Absolute Basophils (0.0 - 0.2 /CUMM) 0.1 0 09/30 09/30 09/30 1151 1126 1010 Chemistry Lactic Acid (0.7 - 2.1 mmol/L) 4.3 H Coagulation PT (9.4 - 12.5 SEC) 81.2 *H INR (0.90 - 1.17) 7.30 *H APTT (25 - 37 SEC) 70 H Urines Urinalysis LIGHT H Urine Color (YEL,AMB,STR) YEL Urine Clarity (CLEAR) HAZY H Urine pH (5.0 - 8.0) 6.0 Ur Specific [place] (1.001 - 1.035) 1.025 Urine Protein (NEG,<30 MG/DL) TRACE H Urine Ketones (NEG) NEG Urine Nitrite (NEG) NEG Urine Bilirubin (NEG) POS@ICTO H Urine Urobilinogen (0.1 - 1.0 EU/dl) 1.0 Ur Leukocyte Esterase (NEG) NEG Ur Microscopic SEDIMENT EXAMINED Urine RBC (0 - 5 /HPF) 1-3 Urine WBC (0 - 2 /HPF) 1-3 H Ur Epithelial Cells (NONE,FEW) FEW Urine Bacteria (NEG/NONE) RARE H Hyaline Casts (0/LPF) RARE H Granular Casts (NONE /LPF) 1-3 H Urine Mucus (FEW,NONE) FEW Urine Hemoglobin (NEG) NEG Urine Glucose (N MG/DL) NEG 09/30 0834 Chemistry Sodium (137 - 145 mmol/L) 124 L Potassium (3.5 - 5.1 mmol/L) 5.5 H Chloride (98 - 107 mmol/L) 92 L Carbon Dioxide (22 - 30 mmol/L) 22 Anion Gap (5 - 16) 10 BUN (9 - 20 mg/dL) 48 H Creatinine (0.7 - 1.2 mg/dL) 1.3 H Estimated GFR (>60 ml/min) 55 L BUN/Creatinine Ratio (7 - 25 %) 36.9 H Glucose (65 - 99 mg/dL) 73 Lactic Acid (0.7 - 2.1 mmol/L) 5.0 H Calcium (8.4 - 10.2 mg/dL) 7.6 L Magnesium (1.6 - 2.3 mg/dL) 2.2 Total Bilirubin (0.2 - 1.3 mg/dL) 3.2 H AST (17 - 59 U/L) 311 H ALT (21 - 72 U/L) 124 H Alkaline Phosphatase (< 127 U/L) 788 H Troponin I (<0.11 ng/ml) 3.87 *H Total Protein (6.3 - 8.2 g/dL) 5.0 L Albumin (3.5 - 5.0 g/dL) 1.9 L Globulin (1.9 - 4.2 gm/dL) 3.1 Albumin/Globulin Ratio (1.1 - 2.2 %) 0.6 L Hematology CBC w Diff MAN DIFF ORDERED WBC (4.8 - 10.8 /CUMM) 17.6 H RBC (4.70 - 6.10 /CUMM) 4.92 Hgb (14.0 - 18.0 G/DL) 13.2 L Hct (42 - 52 %) 39.3 L MCV (80.0 - 94.0 FL) 79.9 L MCH (27.0 - 31.0 PG) 26.7 L MCHC (33.0 - 37.0 G/DL) 33.4 RDW (11.5 - 14.5 %) 20.6 H Plt Count (130 - 400 /CUMM) 82 L MPV (7.4 - 10.4 FL) 10.5 H Gran % (42.2 - 75.2 %) 86.6 H Lymphocytes % (20.5 - 51.1 %) 8.9 L Monocytes % (1.7 - 9.3 %) 4.0 Eosinophils % (0 - 5 %) 0 Basophils % (0.0 - 2.0 %) 0.5 Absolute Granulocytes (1.4 - 6.5 /CUMM) 15.2 H Absolute Lymphocytes (1.2 - 3.4 /CUMM) 1.6 Absolute Monocytes (0.10 - 0.60 /CUMM) 0.7 H Absolute Eosinophils (0.0 - 0.7 /CUMM) 0 Absolute Basophils (0.0 - 0.2 /CUMM) 0.1 Platelet Estimate (ADEQUATE) DECREASED Polychromasia 1+ Poikilocytosis 2+ Anisocytosis 1+ Liver biopsy-consistent with metastatic pancreas cancer CA 19-9 >700,000 CEA 415 AFP- 3.2 Imaging/Other Studies: [id number] pulmonary emboli, hepatic metastases, ascites [id number] parietal infarct Doppler ultrasound-peripheral vascular disease, no DVT CT-chest abdomen and pelvis-liver metastases, questionable renal mass, Mass. tail of pancreas Abdominal ultrasound-ascites Assessment/Plan Assessment: All data is consistent with metastatic pancreas cancer. She has a very poor performance status in the setting of a rising bilirubin coagulopathy. I will lengthy discussion with the patient and his . Given the very poor prognosis and his current status, the patient wishes to go to hospice. This is a decision and I am most comfortable with. Recommend- Inpatient hospice Paracentesis for comfort Please call if any further issues develop Recommendations: .. Consult Acknowledgment - Thank you for your consult request.
[2017-10-02 08:00] VITALS: BP 100/66
--- NOTE | 2017-10-02 14:42 | PN- Gastroenterology ---
Assessment/Plan GI Assessment/Recommendations: ASSESSMENT: Metastatic Pancreatic Cancer with Ascites RECOMMENDATIONS: 1. Inpatient hospice care 2. Large-volume paracentesis for comfort 3. GI will sign off for now. Please do not hesitate to contact us if the need arises. Subjective Subjective: Patient and have decided to enter inpatient hospice after discussion with Dr. Curry. Objective Vital Signs and I&Os Vital Signs Date Time Temp Pulse Resp B/P B/P Pulse O2 O2 Flow FiO2 Mean Ox Delivery Rate 10/02 0800 96 Room Air Room Air 10/02 0800 98.8 118 28 100/66 96 Room Air Room Air 10/02 0400 94 Room Air 10/02 0000 95 Room Air 10/02 0000 99.2 110 28 100/70 95 Room Air 10/01 2000 96 Room Air 10/01 1600 Room Air 10/01 1600 98.2 102 21 98/62 96 Room Air Intake & Output 10/02 1600 10/02 0400 10/01 1600 10/01 0400 09/30 1600 09/30 0400 Intake Total 889 179 1357 1408 3919 Output Total 200 300 675 290 Balance 331 892 2512 1118 3919 Intake, Blood 369 633 639 Product Intake, IV 631 525 706 628 5037 Intake, Oral 360 1070 400 200 Number 1 3 3 Bowel Movements Output, Urine 200 300 675 290 Patient 191 lb 190 lb Weight Weight Bed scale Bed scale Measurement Method Physical Exam General Appearance: cachetic Head: temporal wasting Abdomen: distention Skin: jaundice Current Medications: Current Medications Sig/Lola Start time Last Medication Dose Route Stop Time Status Admin Atorvastatin Calcium 40 MG DAILY 10/01 899 DCD 10/02 PO 08 Calcitriol 0.25 MCG DAILY 10/02 905 DC PO Ergocalciferol 50,000 IU QTUES 10/01 09 DC 10/01 PO 0905 Ferrous Sulfate 325 MG DAILY 10/01 09 DCD 10/02 PO 0829 Pantoprazole Sodium 40 MG BID 09/30 1446 DCD 10/02 IV 0829 Sodium Chloride 2,000 MG TID 09/30 2100 DC 10/01 PO 2120 Sodium Chloride 1,000 ML Q13H 09/30 1845 DCD 10/02 IV 0103 Results Pertinent Lab Results: Laboratory Tests 10/02 10/02 0630 0331 Chemistry Sodium (137 - 145 mmol/L) 137 Potassium (3.5 - 5.1 mmol/L) 4.9 Chloride (98 - 107 mmol/L) 104 Carbon Dioxide (22 - 30 mmol/L) 17 L Anion Gap (5 - 16) 16 BUN (9 - 20 mg/dL) 40 H Creatinine (0.7 - 1.2 mg/dL) 1.1 Estimated GFR (>60 ml/min) > 60 Glucose (65 - 99 mg/dL) 74 Lactic Acid (0.7 - 2.1 mmol/L) Cancelled 6.6 H Calcium (8.4 - 10.2 mg/dL) 7.4 L Phosphorus (2.5 - 4.5 mg/dL) 3.7 Magnesium (1.6 - 2.3 mg/dL) 2.2 Total Bilirubin (0.2 - 1.3 mg/dL) 5.4 H Direct Bilirubin (< 0.4 mg/dL) 4.0 H GGT (15 - 73 U/L) 1025 H AST (17 - 59 U/L) 341 H ALT (21 - 72 U/L) 124 H Albumin (3.5 - 5.0 g/dL) 2.0 L Coagulation PT (9.4 - 12.5 SEC) 23.7 H INR (0.90 - 1.17) 2.16 H APTT (25 - 37 SEC) 43 H Hematology CBC w Diff MAN DIFF ORDERED WBC (4.8 - 10.8 /CUMM) 18.4 H RBC (4.70 - 6.10 /CUMM) 4.45 L Hgb (14.0 - 18.0 G/DL) 11.8 L Hct (42 - 52 %) 36.0 L MCV (80.0 - 94.0 FL) 80.9 MCH (27.0 - 31.0 PG) 26.5 L MCHC (33.0 - 37.0 G/DL) 32.8 L RDW (11.5 - 14.5 %) 22.8 H Plt Count (130 - 400 /CUMM) 31 L MPV (7.4 - 10.4 FL) 9.6 Gran % (42.2 - 75.2 %) 87.5 H Lymphocytes % (20.5 - 51.1 %) 7.7 L Monocytes % (1.7 - 9.3 %) 4.4 Eosinophils % (0 - 5 %) 0 Basophils % (0.0 - 2.0 %) 0.4 Absolute Granulocytes (1.4 - 6.5 /CUMM) 16.1 H Segmented Neutrophils (42.2 - 75.2 %) 96 H Absolute Lymphocytes (1.2 - 3.4 /CUMM) 1.4 Lymphocytes (20.5 - 51.1 %) 3 L Monocytes (1.7 - 9.3 %) 1 L Absolute Monocytes (0.10 - 0.60 /CUMM) 0.8 H Absolute Eosinophils (0.0 - 0.7 /CUMM) 0 Absolute Basophils (0.0 - 0.2 /CUMM) 0.1 Platelet Estimate (ADEQUATE) DECREASED Polychromasia 1+ Hypochromic-Microcytic 1+ Poikilocytosis 1+ Anisocytosis 1+ Microcytic Cells 1+ Ovalocytes 1+ Other Body Source Fld Total RBCs Counted (%) 100 10/01 10/01 10/01 2300 1745 1540 Hematology CBC w Diff Cancelled MAN DIFF ORDERED WBC (4.8 - 10.8 /CUMM) Cancelled 17.6 H RBC (4.70 - 6.10 /CUMM) Cancelled 4.33 L Hgb (14.0 - 18.0 G/DL) Cancelled 11.6 L Hct (42 - 52 %) Cancelled 34.7 L MCV (80.0 - 94.0 FL) Cancelled 80.0 MCH (27.0 - 31.0 PG) Cancelled 26.8 L MCHC (33.0 - 37.0 G/DL) Cancelled 33.5 RDW (11.5 - 14.5 %) Cancelled 21.8 H Plt Count (130 - 400 /CUMM) Cancelled 41 L MPV (7.4 - 10.4 FL) Cancelled 9.1 Gran % (42.2 - 75.2 %) 91.4 H Lymphocytes % (20.5 - 51.1 %) 7.0 L Monocytes % (1.7 - 9.3 %) 1.5 L Eosinophils % (0 - 5 %) 0 Basophils % (0.0 - 2.0 %) 0.1 Absolute Granulocytes (1.4 - 6.5 /CUMM) 16.1 H Segmented Neutrophils (42.2 - 75.2 %) 92 H Absolute Lymphocytes (1.2 - 3.4 /CUMM) 1.2 Lymphocytes (20.5 - 51.1 %) 5 L Monocytes (1.7 - 9.3 %) 3 Absolute Monocytes (0.10 - 0.60 /CUMM) 0.3 Absolute Eosinophils (0.0 - 0.7 /CUMM) 0 Absolute Basophils (0.0 - 0.2 /CUMM) 0 Platelet Estimate (ADEQUATE) DECREASED Polychromasia 1+ Anisocytosis 2+ 10/01 10/01 10/01 10/01 1225 1055 0900 0610 Chemistry Lactic Acid (0.7 - 2.1 mmol/L) 6.1 H Cancelled 5.5 H 5.1 H 10/01 10/01 0530 0300 Chemistry Lactic Acid (0.7 - 2.1 mmol/L) 5.1 H Urines Urinalysis MOD H Urine Color (YEL,AMB,STR) BLDY H Urine Clarity (CLEAR) HAZY H Urine pH (5.0 - 8.0) 6.0 Ur Specific Carriere (1.001 - 1.035) 1.025 Urine Protein (NEG,<30 MG/DL) 100 H Urine Ketones (NEG) TRACE H Urine Nitrite (NEG) NEG Urine Bilirubin (NEG) POS@ICTO H Urine Urobilinogen (0.1 - 1.0 EU/dl) 1.0 Ur Leukocyte Esterase (NEG) NEG Ur Microscopic SEDIMENT EXAMINED Urine RBC (0 - 5 /HPF) PACKD H Urine WBC (0 - 2 /HPF) 1-3 H Ur Epithelial Cells (NONE,FEW) RARE Urine Bacteria (NEG/NONE) MANY H Granular Casts (NONE /LPF) 5-10 H Urine Hemoglobin (NEG) LARGE H Urine Glucose (N MG/DL) NEG 10/01 10/01 09/30 0300 0005 2300 Chemistry Sodium (137 - 145 mmol/L) 129 L 130 L Potassium (3.5 - 5.1 mmol/L) 4.6 Chloride (98 - 107 mmol/L) 98 Carbon Dioxide (22 - 30 mmol/L) 20 L Anion Gap (5 - 16) 12 BUN (9 - 20 mg/dL) 37 H Creatinine (0.7 - 1.2 mg/dL) 1.0 Estimated GFR (>60 ml/min) > 60 Glucose (65 - 99 mg/dL) 60 L Lactic Acid (0.7 - 2.1 mmol/L) 5.0 H Cancelled Calcium (8.4 - 10.2 mg/dL) 7.7 L Phosphorus (2.5 - 4.5 mg/dL) 3.9 Magnesium (1.6 - 2.3 mg/dL) 2.1 Total Bilirubin (0.2 - 1.3 mg/dL) 4.8 H Direct Bilirubin (< 0.4 mg/dL) 3.7 H AST (17 - 59 U/L) 322 H ALT (21 - 72 U/L) 114 H Albumin (3.5 - 5.0 g/dL) 2.1 L Coagulation PT (9.4 - 12.5 SEC) 20.1 H INR (0.90 - 1.17) 1.83 H Hematology CBC w Diff MAN DIFF ORDERED WBC (4.8 - 10.8 /CUMM) 17.1 H RBC (4.70 - 6.10 /CUMM) 4.30 L Hgb (14.0 - 18.0 G/DL) 11.5 L Hct (42 - 52 %) 34.8 L MCV (80.0 - 94.0 FL) 80.8 MCH (27.0 - 31.0 PG) 26.7 L MCHC (33.0 - 37.0 G/DL) 33.0 RDW (11.5 - 14.5 %) 20.8 H Plt Count (130 - 400 /CUMM) 60 L MPV (7.4 - 10.4 FL) 10.6 H Gran % (42.2 - 75.2 %) 86.5 H Lymphocytes % (20.5 - 51.1 %) 7.2 L Monocytes % (1.7 - 9.3 %) 6.1 Eosinophils % (0 - 5 %) 0.1 Basophils % (0.0 - 2.0 %) 0.1 Absolute Granulocytes (1.4 - 6.5 /CUMM) 14.8 H Segmented Neutrophils (42.2 - 75.2 %) 94 H Absolute Lymphocytes (1.2 - 3.4 /CUMM) 1.2 Lymphocytes (20.5 - 51.1 %) 3 L Monocytes (1.7 - 9.3 %) 3 Absolute Monocytes (0.10 - 0.60 /CUMM) 1.0 H Absolute Eosinophils (0.0 - 0.7 /CUMM) 0 Absolute Basophils (0.0 - 0.2 /CUMM) 0 Platelet Estimate (ADEQUATE) DECREASED Polychromasia 1+ Anisocytosis 1+ Microcytic Cells 1+ Ovalocytes FEW Other Body Source Fld Total RBCs Counted (%) 100 09/30 09/30 2200 2000 Chemistry Sodium (137 - 145 mmol/L) 127 L Lactic Acid (0.7 - 2.1 mmol/L) 5.6 H Troponin I (<0.11 ng/ml) 2.27 *H Hematology CBC w Diff NO MAN DIFF REQ WBC (4.8 - 10.8 /CUMM) 18.1 H RBC (4.70 - 6.10 /CUMM) 4.09 L Hgb (14.0 - 18.0 G/DL) 10.9 L Hct (42 - 52 %) 33.1 L MCV (80.0 - 94.0 FL) 80.9 MCH (27.0 - 31.0 PG) 26.7 L MCHC (33.0 - 37.0 G/DL) 33.0 RDW (11.5 - 14.5 %) 21.3 H Plt Count (130 - 400 /CUMM) 67 L MPV (7.4 - 10.4 FL) 10.4 Gran % (42.2 - 75.2 %) 86.3 H Lymphocytes % (20.5 - 51.1 %) 7.8 L Monocytes % (1.7 - 9.3 %) 5.7 Eosinophils % (0 - 5 %) 0 Basophils % (0.0 - 2.0 %) 0.2 Absolute Granulocytes (1.4 - 6.5 /CUMM) 15.6 H Absolute Lymphocytes (1.2 - 3.4 /CUMM) 1.4 Absolute Monocytes (0.10 - 0.60 /CUMM) 1.0 H Absolute Eosinophils (0.0 - 0.7 /CUMM) 0 Absolute Basophils (0.0 - 0.2 /CUMM) 0 09/30 09/30 1731 1418 Chemistry Sodium (137 - 145 mmol/L) 127 L 127 L Potassium (3.5 - 5.1 mmol/L) 5.0 Chloride (98 - 107 mmol/L) 96 L Carbon Dioxide (22 - 30 mmol/L) 19 L Anion Gap (5 - 16) 11 BUN (9 - 20 mg/dL) 43 H Creatinine (0.7 - 1.2 mg/dL) 1.0 Estimated GFR (>60 ml/min) > 60 BUN/Creatinine Ratio (7 - 25 %) 43.0 H Lactic Acid (0.7 - 2.1 mmol/L) 5.1 H 4.6 H Troponin I (<0.11 ng/ml) 3.11 *H Coagulation PT (9.4 - 12.5 SEC) 19.8 H INR (0.90 - 1.17) 1.81 H Hematology CBC w Diff NO MAN DIFF REQ NO MAN DIFF REQ WBC (4.8 - 10.8 /CUMM) 17.2 H 16.8 H RBC (4.70 - 6.10 /CUMM) 4.01 L 4.45 L Hgb (14.0 - 18.0 G/DL) 10.7 L 11.8 L Hct (42 - 52 %) 32.2 L 35.8 L MCV (80.0 - 94.0 FL) 80.4 80.3 MCH (27.0 - 31.0 PG) 26.8 L 26.5 L MCHC (33.0 - 37.0 G/DL) 33.3 33.0 RDW (11.5 - 14.5 %) 20.8 H 20.8 H Plt Count (130 - 400 /CUMM) 63 L 74 L MPV (7.4 - 10.4 FL) 10.0 10.3 Gran % (42.2 - 75.2 %) 86.3 H 87.1 H Lymphocytes % (20.5 - 51.1 %) 7.7 L 7.3 L Monocytes % (1.7 - 9.3 %) 5.5 5.5 Eosinophils % (0 - 5 %) 0 0 Basophils % (0.0 - 2.0 %) 0.5 0.1 Absolute Granulocytes (1.4 - 6.5 /CUMM) 14.8 H 14.7 H Absolute Lymphocytes (1.2 - 3.4 /CUMM) 1.3 1.2 Absolute Monocytes (0.10 - 0.60 /CUMM) 0.9 H 0.9 H Absolute Eosinophils (0.0 - 0.7 /CUMM) 0 0 Absolute Basophils (0.0 - 0.2 /CUMM) 0.1 0 09/30 09/30 09/30 1151 1126 1010 Chemistry Lactic Acid (0.7 - 2.1 mmol/L) 4.3 H Coagulation PT (9.4 - 12.5 SEC) 81.2 *H INR (0.90 - 1.17) 7.30 *H APTT (25 - 37 SEC) 70 H Urines Urinalysis LIGHT H Urine Color (YEL,AMB,STR) YEL Urine Clarity (CLEAR) HAZY H Urine pH (5.0 - 8.0) 6.0 Ur Specific Carriere (1.001 - 1.035) 1.025 Urine Protein (NEG,<30 MG/DL) TRACE H Urine Ketones (NEG) NEG Urine Nitrite (NEG) NEG Urine Bilirubin (NEG) POS@ICTO H Urine Urobilinogen (0.1 - 1.0 EU/dl) 1.0 Ur Leukocyte Esterase (NEG) NEG Ur Microscopic SEDIMENT EXAMINED Urine RBC (0 - 5 /HPF) 1-3 Urine WBC (0 - 2 /HPF) 1-3 H Ur Epithelial Cells (NONE,FEW) FEW Urine Bacteria (NEG/NONE) RARE H Hyaline Casts (0/LPF) RARE H Granular Casts (NONE /LPF) 1-3 H Urine Mucus (FEW,NONE) FEW Urine Hemoglobin (NEG) NEG Urine Glucose (N MG/DL) NEG 09/30 0834 Chemistry Sodium (137 - 145 mmol/L) 124 L Potassium (3.5 - 5.1 mmol/L) 5.5 H Chloride (98 - 107 mmol/L) 92 L Carbon Dioxide (22 - 30 mmol/L) 22 Anion Gap (5 - 16) 10 BUN (9 - 20 mg/dL) 48 H Creatinine (0.7 - 1.2 mg/dL) 1.3 H Estimated GFR (>60 ml/min) 55 L BUN/Creatinine Ratio (7 - 25 %) 36.9 H Glucose (65 - 99 mg/dL) 73 Lactic Acid (0.7 - 2.1 mmol/L) 5.0 H Calcium (8.4 - 10.2 mg/dL) 7.6 L Magnesium (1.6 - 2.3 mg/dL) 2.2 Total Bilirubin (0.2 - 1.3 mg/dL) 3.2 H AST (17 - 59 U/L) 311 H ALT (21 - 72 U/L) 124 H Alkaline Phosphatase (< 127 U/L) 788 H Troponin I (<0.11 ng/ml) 3.87 *H Total Protein (6.3 - 8.2 g/dL) 5.0 L Albumin (3.5 - 5.0 g/dL) 1.9 L Globulin (1.9 - 4.2 gm/dL) 3.1 Albumin/Globulin Ratio (1.1 - 2.2 %) 0.6 L Hematology CBC w Diff MAN DIFF ORDERED WBC (4.8 - 10.8 /CUMM) 17.6 H RBC (4.70 - 6.10 /CUMM) 4.92 Hgb (14.0 - 18.0 G/DL) 13.2 L Hct (42 - 52 %) 39.3 L MCV (80.0 - 94.0 FL) 79.9 L MCH (27.0 - 31.0 PG) 26.7 L MCHC (33.0 - 37.0 G/DL) 33.4 RDW (11.5 - 14.5 %) 20.6 H Plt Count (130 - 400 /CUMM) 82 L MPV (7.4 - 10.4 FL) 10.5 H Gran % (42.2 - 75.2 %) 86.6 H Lymphocytes % (20.5 - 51.1 %) 8.9 L Monocytes % (1.7 - 9.3 %) 4.0 Eosinophils % (0 - 5 %) 0 Basophils % (0.0 - 2.0 %) 0.5 Absolute Granulocytes (1.4 - 6.5 /CUMM) 15.2 H Absolute Lymphocytes (1.2 - 3.4 /CUMM) 1.6 Absolute Monocytes (0.10 - 0.60 /CUMM) 0.7 H Absolute Eosinophils (0.0 - 0.7 /CUMM) 0 Absolute Basophils (0.0 - 0.2 /CUMM) 0.1 Platelet Estimate (ADEQUATE) DECREASED Polychromasia 1+ Poikilocytosis 2+ Anisocytosis 1+
--- NOTE | 2017-10-02 15:54 | Discharge Summary ---
Visit Information Visit Dates Admission Date: 09/30/17 Discharge Date: 10/02/17 Hospital Course Course Attending Physician: Lobito Landis MD Primary Care Physician: Raymond Richardson MD Hospital Course: A: 67-year-old male with a past medical history of history metastatic cancer, AAA, and GERD recently discharged on September 20 for left parietal CVA, and bilateral PE discharge on Eliquis presenting with hematochezia in the setting of coagulopathy and active and elliquis/aspirin use admitted to the ICU and then hospice. P: #Metastatic cancer Metastatic cancer (to liver/pancreas/lung/veretebrae,?kidney) with biopsy suggestive of primary pancreatic cancer. Imaging reveals pancreatic mass with current CA-A levels >700k suggesting pancreatic cancer as the primary source. After family discussion, oncology consult, palliative care consult the family has decided to pursue inpatient hospice. #GI Bleed in the setting of eliquis, aspirin and thrombocytopenia Patient was recently discharged on September 20 with Eliquis for bilateral PE and left parietal CVA. He was found to be not suitable for TPA. Echo study that was performed did not reveal any intracardiac shunt. Chest CTA usually showed bilateral pulmonary emboli without right heart strain. LE DVT was negative. Patient reports that since last discharge, he has been expressing diarrhea and was initially started on Imodium and then switched to Lomotil. On the morning of presentation the patient's spouse reported ana blood in the patient's stool and around the toilet. In the ED his initial inr was elevated to 7.3 and H/H was 13.2/39.3. He received vitamin K, FFP, and K-centra. IV protonix and NS 1L x3 were also given. His apixaban and aspirin were stopped. His anticoagulation was held during admission and his cbc was monitored. He did not receive any blood transfusions. There were discussions regarding placing an IVC filter and stopping his Eliquis for his PE. Given the patient's poor prognosis, the patient and the family decided against any aggressive measures and opted for hospice. #Bilateral PE Unclear etiology. Possibly due to DVT which had embolized and were previously missed however previous dopplers were negative. Possible spontaenous due to hypercoagulability secondary to cancer. Anticoagulation was held due to GI bleed. The family elected not to have an IVC filter placed. #Hepatic dysfunction from most likely metastatic cancer His INR and elevated LFTs is chronic and most likely secondary to metastatic cancer. #Elevated bilirubin Elevated bilirubin is most likely secondary to possible gallstones/biliary sludge. Given poor prognosis and no sx, no intervention at this time. #Leukcocytosis of unclear etiology Patient continued to be afebrile and does have elevated lactic acid but cultures have been negative thus far. Elevated lactic acid most likely secondary to hepatic dysfunction. #Chronic hyponatremia The patient continues to have hyponatremia which is asymptomatic. The hyponatremia improved after NaCl tablets and NS. Likely chronic in nature due to possible SIADH from underlying malignancy. #Elevated troponins secondary to a type II myocardial infarction Initial troponin 3.87 and then down trended. Most likely demand ischemia #Vascular disease of lower extremities Gangrenous right fifth toe and lateral foot on exam. Previous arterial doppler showed extensive atherosclerotic disease of lower extremity peripheral vessels. Was scheduled for f/u with Dr. Abernathy. No intervention of his toe/foot at this time per vascular surgery. #CHRIS Initial Cr 1.3, Baseline Cr 0.7. Resolved after fluids Allergies: Coded Allergies: No Known Allergies (09/15/17) Disposition Summary Disposition Principal Diagnosis: GI Bleed in the setting of eliquis, aspirin and thrombocytopenia Additional Diagnosis: Metastatic cancer Bilateral PE Hepatic dysfunction from most likely metastatic cancer Elevated bilirubin Leukcocytosis of unclear etiology Chronic hyponatremia Elevated troponins secondary to a type II myocardial infarction Vascular disease of lower extremities CHRIS Discharge Disposition: hospice - medical facilit Discharge Instructions General Discharge Information Code Status: Hospice Patient's Diet: As per patient Patient's Activity: As tolerated Follow-Up Instructions/Appts: Please continue hospice care. Copies To: Debra VIDLA,Raymond Diallo
== END 2017-10-02 14:33 | disposition hospice, home (50) | DRG 813 ==
LOC: ERH 08:21 → CRI 10:15 → ERHI 10:15 → CRI 10:15 → ENRESERV 11:53 → ENTRNSPT 12:20 → EDTRNSPT 12:27 → EDTRNSPTSTS 12:27 → CRI 12:34 → CMPTRNSPT 12:56 → CRI 10-01 11:14
PROVIDERS: Emergency Medicine; Internal Medicine; Student in an Organized Health Care Education/Training Program
PROC: 30233K1 Transfusion of Nonautologous Frozen Plasma into Peripheral Vein, Percutaneous Approach (ICD-10-PCS; principal; 2017-10-01)
DX: D68.32 Hemorrhagic disorder due to extrinsic circulating anticoagulants (principal); I21.A1 Myocardial infarction type 2; R18.0 Malignant ascites; E87.2 Acidosis; C25.9 Malignant neoplasm of pancreas, unspecified; K92.2 Gastrointestinal hemorrhage, unspecified; C78.7 Secondary malignant neoplasm of liver and intrahepatic bile duct; E87.1 Hypo-osmolality and hyponatremia; Z51.5 Encounter for palliative care; D69.6 Thrombocytopenia, unspecified; R74.0 Nonspecific elevation of levels of transaminase and lactic acid dehydrogenase [LDH]; E86.0 Dehydration; T45.515A Adverse effect of anticoagulants, initial encounter; Z79.01 Long term (current) use of anticoagulants; Z79.82 Long term (current) use of aspirin; K21.9 Gastro-esophageal reflux disease without esophagitis; Z86.73 Personal history of transient ischemic attack (TIA), and cerebral infarction without residual deficits; I71.4 Abdominal aortic aneurysm, without rupture; I73.9 Peripheral vascular disease, unspecified; Z66 Do not resuscitate
CPT/HCPCS: 87075; CCU; 36415; 71045; 81001; 82436; 86920; 87086; 93005; 93010; 96361; 96365; 96372; 96374; 96375; 99291; C9132; P9017

== ENCOUNTER 2017-10-02 14:33 | Inpatient (IN) | payer OTHER ==
--- NOTE | 2017-10-02 15:37 | History & Physical ---
General Information and HPI Chief Complaint: Admit to hospice Source of Information: patient, old records, friend Exam Limitations: no limitations Associated Symptoms: dyspnea, abdominal pain, anorexia History of Present Illness: Mr. Ulloa is a 67-year-old man with PMHx of Hodgkins lymphoma in 1970s, recent medical work up revealing metastatic pancreatic adenocarconoma, AAA, and GERD who was last admitted to [facility] on September 20, 2017 with left parietal CVA and bilateral PE, discharged to home on Eliquis. Pt. admitted 09/30/17 with hematochezia, anorexia and weakness. Eliquis was stopped and he recieved FFP for lower GIB. Imaging reveals pancreatic mass with CA-A levels >700k suggesting pancreatic cancer as primary source with mets to liver. Pt. and significant other met with oncology and palliative care and have opted to pursue inpatient hospice as his prognosis is quite poor. Pt. now with increased dyspnea and abdominal pain intermittently, ascites. 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 Current smoker, no alcohol use. Functional Ability: Previously independent Review of Systems Review of Systems Constitutional: Reports: see HPI. Exam & Diagnostic Data Last 24 Hrs of Vital Signs/I&O 8am T-98.8; HR-118; RR-28; BP-100/66; pulse ox 96% RA Physical Exam General Appearance Alert, Mild Distress, ill-appearing HEENT Atraumatic, sclera icteric Cardiovascular Normal S1, Normal S2, tachycardic Lungs RR-32; increased effort, decreased breath sounds Abdomen distended, liver border palpable , hypoactive bowel sounds Extremities edematous lower extremities Reproductive (MALE) ca with earline urine Last 24 Hrs of Labs/Cy: 10/02/17: WBC 18.4,H/H 11.8/36.0/plt 31 Bun-40, lactic acid 6.6, TB 5.4, DB 4.0, GGT 1025, AST 341, ALT 124, alb 2.0 Diagnostic Data CXR Results 10/01/17: IMPRESSION: No new findings in the chest compared to 09/30/2017. Specifically, no evidence of fluid overload. Other Results 10/01/17: abdominal US:IMPRESSION: There is abdominal ascites present. Largest pocket in right lower quadrant. Assessment/Plan Assessment: 67 year old male with metastatic pancreatic cancer with lower GIB, ascites, dyspnea, abdominal pain requesting no further interventions, wants hospice care. Plan: morphine 3 mg every 2 hrs as needed pain/dyspnea ativan 1 mg every 4 hrs as needed anxiety scopolamine patch, Robinul every 4 hrs as needed for secretions O2 as needed for dyspnea O2 as needed for dyspnea
[2017-10-02 16:00] VITALS: BP 84/60
--- NOTE | 2017-10-03 15:09 | Discharge Summary ---
Visit Information Visit Dates Admission Date: 10/02/17 Discharge Date: 10/03/17 Hospital Course Course Attending Physician: Archie Landis MD Primary Care Physician: Raymond Richardson MD Hospital Course: 67 year old male with newly diagnosed metastatic pancreatic cancer admitted with lower GIB, ascites, dyspnea, abdominal pain requesting no further interventions, wants hospice care. He was kept comfortable with morphine and ativan until he peacefully. Allergies: Coded Allergies: No Known Allergies (09/15/17) Disposition Summary Disposition Principal Diagnosis: Metastatic Pancreatic Adenocarcinoma Probable liver metastases with ascites Anorexia Lower gastrointestinal bleed Additional Diagnosis: Left parietal cerebrovascular accident bilateral pulmonary emboli Discharge Disposition: Discharge Instructions General Discharge Information Code Status: Hospice Patient's Diet: N/A Patient's Activity: N/A Follow-Up Instructions/Appts: N/A Copies To: Raymond Richardson MD
== END 2017-10-03 01:24 | disposition expired | DRG 435 ==
LOC: CRI 14:33 → ENTRNSPT 19:12 → EDTRNSPT 19:33 → EDTRNSPTSTS 19:33 → 2NA 19:39 → CMPTRNSPT 19:39 → 2NA 10-03 01:24
DX: C25.9 Malignant neoplasm of pancreas, unspecified (principal); Z51.5 Encounter for palliative care; I63.9 Cerebral infarction, unspecified; I26.99 Other pulmonary embolism without acute cor pulmonale; C78.7 Secondary malignant neoplasm of liver and intrahepatic bile duct; K92.2 Gastrointestinal hemorrhage, unspecified; R18.0 Malignant ascites; R63.0 Anorexia; Z85.71 Personal history of Hodgkin lymphoma; K21.9 Gastro-esophageal reflux disease without esophagitis
CPT/HCPCS: J0780